=== PATIENT | male | born 1955 | race Caucasian/White ===

== ENCOUNTER 2019-09-25 06:00 | Outpatient (RCR) | payer MEDICARE, MEDICAID, SELFPAY | END 2019-09-29 23:59 | disposition home or self-care (01) | LOC: LAB 06:00 | PROVIDERS: Family Provider Family Medicine; PCP Family Medicine; Visit Provider Physician Assistant | DX: F20.9 Schizophrenia, unspecified (principal); G40.501 Epileptic seizures related to external causes, not intractable, with status epilepticus; I10 Essential (primary) hypertension; E11.9 Type 2 diabetes mellitus without complications; Z98.2 Presence of cerebrospinal fluid drainage device | CPT/HCPCS: 36415 ×4; 80053; 80164; 80185 ×2; 83036; 85025 ==

== ENCOUNTER 2019-10-22 15:00 | Outpatient (RCR) | payer OTHER, SELFPAY ==
[2019-10-22 15:05] LABS: Add Urine Microscopic? NO
[2019-10-22 15:18] LABS: Bilirubin Urine Neg (NEGATIVE); Blood Urine Neg (Negative); Glucose Urine UA Norm (Normal); Ketones Urine Negative (Negative); Leukocyte Esterase Urine Negative (Negative); Nitrate Urine Negative (Negative); Protein Urine Neg (Negative); Urine Appearance Clear (CLEAR); Urine Color Yellow (Yellow); Urobilinogen Urine Norm (Negative); pH Urine 6 (5-7)
== END 2019-10-30 23:59 | disposition home or self-care (01) ==
LOC: LAB 15:00
PROVIDERS: Family Provider Family Medicine; PCP Family Medicine; Visit Provider Family Medicine
DX: Z01.89 Encounter for other specified special examinations (principal)
CPT/HCPCS: 81003; 85025

== ENCOUNTER 2019-10-30 22:39 | Outpatient (CLI) | payer MEDICARE, MEDICAID, SELFPAY ==
[2019-10-30 23:12] LABS: Protein Urine 2+ (Negative); Specific Gravity, Urine 1.015 (1.005-1.030); Urine Appearance Hazy (CLEAR); Urine Color Yellow (Yellow); pH Urine 9 (5-7)
[2019-10-30 23:13] LABS: Add Urine Microscopic? YES; Bilirubin Urine Neg (NEGATIVE); Blood Urine 3+ (Negative); Glucose Urine UA Norm (Normal); Ketones Urine Negative (Negative); Leukocyte Esterase Urine 2+ (Negative); Nitrate Urine Positive (Negative); Sulfosalicylic Acid Urine Positive; Urobilinogen Urine Norm (Negative)
[2019-10-30 23:14] LABS: Add Urine Culture? Yes; Bacteria Urine 3+
== END 2019-10-30 22:40 | disposition home or self-care (01) ==
LOC: LAB 22:47
PROVIDERS: Family Provider Family Medicine; PCP Family Medicine; Visit Provider Physician Assistant
DX: N30.01 Acute cystitis with hematuria (principal)
CPT/HCPCS: 81001; 87077; 87086; 87186

== ENCOUNTER 2020-01-25 12:36 | Inpatient (IN) | payer MEDICARE, MEDICAID, SELFPAY ==
[2020-01-25] VITALS (101 sets, daily range): BP systolic 83–123; BP diastolic 52–70; PULSE 92–122; RESP 18–24; TEMP 37.1–39.4; O2SAT 93–100; BMI 27.1
--- NOTE | 2020-01-25 12:41 | W.ED.AMS ---
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 This morning he seemed to be at his normal baseline and then rapidly deteriorated with the development of fever. Is a history of paranoid schizophrenia cording to old records. All other history from old records and long term notes that were reviewed. Patient remained completely nonresponsive in the emergency room at best I could get him to open up his eyes to loud voices and look in the general direction but he did not answer any questions. MD complaint: altered mental status Review of Systems General: Reports: ROS unobtainable due to mental status PFSH ED PFSH: Social History Smoking and tobacco status: never smoked Alcohol intake: never Marital status: Single Current occupational status: retired History of recent travel: No Physical Exam Const: COMMON NORMALS: no apparent distress HENMT: COMMON NORMALS: normocephalic, head/scalp atraumatic, moist oral mucous membranes and oropharynx normal HEAD & SCALP: normocephalic and atraumatic Eye: COMMON NORMALS: PERRL, EOMs intact bilaterally, conjunctivae normal and no scleral icterus CONJUNCTIVA: Yes conjunctivae normal PUPIL: Yes PERRL Neck/C-Spine: COMMON NORMALS: full ROM, no lymphadenopathy, supple and no JVD Lymph: LYMPHATIC: no lymphadenopathy noted and no lymphedema noted Resp: COMMON NORMALS: normal respiratory effort, no retractions, no use of accessory muscles and clear to auscultation bilaterally AUSCULTATION: clear to auscultation bilaterally Cardio: COMMON NORMALS: no JVD and regular rhythm RATE: tachycardic RHYTHM: regular rhythm HEART SOUNDS: murmur systolic Location: right sternal border Intensity: II/ GI: COMMON NORMALS: soft to palpation and no hepatosplenomegaly AUSCULTATION: Yes normoactive bowel sounds PALPATION: Yes soft, No tender, No guarding and Yes no hepatosplenomegaly Extremity: COMMON NORMALS: normal to inspection, normal capillary refill, no clubbing, cyanosis or edema, no calf tenderness and no pedal edema Skin: COMMON NORMALS: no rashes or lesions noted GENERAL SKIN EXAM: no rashes or lesions noted Course Vital Signs: Vital signs: Vital Signs Temperature 98.8 F 01/25/20 16:42 Pulse Rate 107 H 01/25/20 16:07 Respiratory Rate 22 H 01/25/20 16:07 Blood Pressure 110/70 01/25/20 16:07 Pulse Oximetry 100 01/25/20 16:07 MDM - Altered Mental Status Lab Data: Labs: Lab Results 01/25/20 01/25/20 01/25/20 Range/Units 10:32 12:23 12:23 WBC 14.5 H (4.0-10.0) 10^3/ uL RBC 4.45 (4.1-5.3) 10^6/u L Hgb 12.8 (11.7-16.6) g/dL Hct 40.0 L (42.0-52.0) % MCV 89.9 (80-94) fL MCH 28.8 (28.0-34.0) pg MCHC 32.0 (30.0-36.0) g/dL RDW 17.0 H (12.1-15.1) % Plt Count 167 (130-400) 10^3/c mm MPV 9.1 (7.4-10.4) fL Neut % (Auto) 77.8 % Lymph % (Auto) 6.9 % Glynn % (Auto) 14.6 % Eos % (Auto) 0.0 % Baso % (Auto) 0.2 % Neut # (Auto) 11.3 H (1.8-7.7) 10^3/u L Lymph # (Auto) 1.0 (0.8-4.8) 10^3/u L Glynn # (Auto) 2.1 H (0.2-0.9) 10^3/u L Eos # (Auto) 0.0 (0.0-0.8) 10^3/u L Baso # (Auto) 0.0 (0.0-0.1) 10^3/u L Nucleated RBC % (a uto) 0 % Nucleated RBCs # 0.0 /100WBC Specimen Type Sample Site ABG pH (7.35-7.45) ABG pCO2 (35-45) mmHg ABG pO2 (80.0-100.0) mmH g ABG HCO3 (22-26) mmol/L ABG O2 Saturation ABG Base Excess (-2.0-2.0) mmol/ L Reynaldo Test A-a O2 Gradient (5-10) mmHg Hematocrit (42-52) % Hgb O2 Saturation (95-100) % Carboxyhemoglobin (0.4-20.1) %THgb Methemoglobin (0.4-1.5) % Total Hemoglobin (14-18) g/dL Ionized Calcium (1.1-1.4) mmol/L O2 Delivery Device O2 Liters/Min % FiO2 % Transmission Operator ID Sodium 143 (136-145) mmol/L Potassium 3.5 (3.5-5.1) mmol/L Chloride 102 (98-107) mmol/L Carbon Dioxide 26 (22-29) mmol/L Anion Gap 18.5 (5-19) BUN 22 (8-23) mg/dL Creatinine 1.0 (0.7-1.2) mg/dL GFR Calculation 75.7 L (90-130) mL/min Glucose 186 H (65-115) mg/dL Calculated Osmolal ity 298 H (285-295) mOsm/k g Lactate (0.5-2.2) mmol/L Calcium 9.1 (8.5-10.5) mg/dL Total Bilirubin 0.5 (0.15-1.2) mg/dL AST 118 H (0-40) U/L ALT 76 H (0-41) U/L Alkaline Phosphata se 132 H (40-130) IU/L C-Reactive Protein (0.0-4.9) mg/L Total Protein 8.0 (6.6-8.7) g/dL Albumin 3.7 (3.5-5.2) g/dL Globulin 4.3 (1.3-4.6) g/dL Lipase 25 (13-60) U/L Procalcitonin (0-0.5) ng/mL Urine Color Yellow (Yellow) Urine Appearance Turbid (CLEAR) Urine pH 7 (5-7) Ur Specific Gravit y 1.005 (1.005-1.030) Urine Protein 2+ H (Negative) Urine Glucose (UA) Norm (Normal) Urine Ketones Negative (Negative) Urine Blood 3+ H (Negative) Urine Nitrate Positive H (Negative) Urine Bilirubin Neg (NEGATIVE) Urine Urobilinogen 1 H (Negative) mg/dL Ur Leukocyte Lucrecia ase 2+ H (Negative) Urine RBC 40-50 H (0-2) /hpf Urine WBC >100 H (0-5) /hpf Ur Squamous Epith Cells None (0-5) Urine Bacteria 3+ H (NONE) 01/25/20 01/25/20 01/25/20 Range/Units 12:23 13:04 14:00 WBC (4.0-10.0) 10^3/ uL RBC (4.1-5.3) 10^6/u L Hgb (11.7-16.6) g/dL Hct (42.0-52.0) % MCV (80-94) fL MCH (28.0-34.0) pg MCHC (30.0-36.0) g/dL RDW (12.1-15.1) % Plt Count (130-400) 10^3/c mm MPV (7.4-10.4) fL Neut % (Auto) % Lymph % (Auto) % Glynn % (Auto) % Eos % (Auto) % Baso % (Auto) % Neut # (Auto) (1.8-7.7) 10^3/u L Lymph # (Auto) (0.8-4.8) 10^3/u L Glynn # (Auto) (0.2-0.9) 10^3/u L Eos # (Auto) (0.0-0.8) 10^3/u L Baso # (Auto) (0.0-0.1) 10^3/u L Nucleated RBC % (a uto) % Nucleated RBCs # /100WBC Specimen Type Arterial Sample Site Radial, left ABG pH 7.46 H (7.35-7.45) ABG pCO2 41.6 (35-45) mmHg ABG pO2 162.0 H* (80.0-100.0) mmH g ABG HCO3 29.6 H (22-26) mmol/L ABG O2 Saturation 99.9 ABG Base Excess 5.2 H (-2.0-2.0) mmol/ L Reynaldo Test Pos A-a O2 Gradient 12.3 H (5-10) mmHg Hematocrit 40.8 L (42-52) % Hgb O2 Saturation 98.1 (95-100) % Carboxyhemoglobin 0.9 (0.4-20.1) %THgb Methemoglobin 0.9 (0.4-1.5) % Total Hemoglobin 13.3 L (14-18) g/dL Ionized Calcium 1.1 (1.1-1.4) mmol/L O2 Delivery Device Nc O2 Liters/Min 3.0 % FiO2 32.0 % Transmission Operator ID glc Sodium 144.0 H (136-145) mmol/L Potassium 2.9 L (3.5-5.1) mmol/L Chloride (98-107) mmol/L Carbon Dioxide (22-29) mmol/L Anion Gap (5-19) BUN (8-23) mg/dL Creatinine (0.7-1.2) mg/dL GFR Calculation (90-130) mL/min Glucose 150.0 H (65-115) mg/dL Calculated Osmolal ity (285-295) mOsm/k g Lactate 2.1 (0.5-2.2) mmol/L Calcium (8.5-10.5) mg/dL Total Bilirubin (0.15-1.2) mg/dL AST (0-40) U/L ALT (0-41) U/L Alkaline Phosphata se (40-130) IU/L C-Reactive Protein 262.5 H (0.0-4.9) mg/L Total Protein (6.6-8.7) g/dL Albumin (3.5-5.2) g/dL Globulin (1.3-4.6) g/dL Lipase (13-60) U/L Procalcitonin 0.33 (0-0.5) ng/mL Urine Color (Yellow) Urine Appearance (CLEAR) Urine pH (5-7) Ur Specific Gravit y (1.005-1.030) Urine Protein (Negative) Urine Glucose (UA) (Normal) Urine Ketones (Negative) Urine Blood (Negative) Urine Nitrate (Negative) Urine Bilirubin (NEGATIVE) Urine Urobilinogen (Negative) mg/dL Ur Leukocyte Lucrecia ase (Negative) Urine RBC (0-2) /hpf Urine WBC (0-5) /hpf Ur Squamous Epith Cells (0-5) Urine Bacteria (NONE) Discharge Plan Discharge Patient Disposition: Admitted As Inpatient Admit Provider: Min Chauhan Clinical Impression: Sepsis, Altered mental status, Pyelonephritis, LINOLEUM PRINTER (ventriculoperitoneal) shunt status, Epilepsy, UTI (urinary tract infection) Condition: Stable Interventions: ED Discharge Assessment Last Done: 01/25/20 16:07 Discharge Date/Time: 01/25/20 16:44 Coding Level of Care Code ED Senior Interactive Producer for Lizette Graham
--- NOTE | 2020-01-25 12:48 | CT_ITS ---
WS: [id number] CT ABDOMEN AND PELVIS WITH CONTRAST HISTORY: Abdominal pain. Fever. TECHNIQUE: Imaging performed of the abdomen and pelvis with IV contrast. Single phase imaging of the abdomen. Coronal and sagittal reformats are submitted. All CT scans at [facility] use at least one of these dose optimization techniques: automated exposure control; mA and/or kV adjustment per patient size (includes targeted exams where dose is matched to clinical indication); or iterativ e reconstruction. IV CONTRAST: Omnipaque 300; 95 mL IV. Oral contrast: No DLP: 896.73 mGy.cm COMPARISON: None available. Lower thorax: Atelectatic changes at the RIGHT lung base. Slightly elevated RIGHT diaphragm has been previously described. Heart is being displaced to the LEFT of midline by the elevated diaphragm and h erniating abdominal structures extending into the RIGHT lower thorax. No hiatal hernia. Liver/biliary system: Hepatic granulomata. No bile duct dilatation or mass. Gallbladder: Normal. No gallstones or wall thickening. No pericholecystic fluid. Pancreas: Normal. Spleen: Normal size spleen with granulomata. Adrenal glands: Normal. Right kidney: Marked perinephric stranding around the RIGHT kidney. Kidney is normally enhancing. The re is a prominent extrarenal pelvis with enhancement of the uroepithelium. The RIGHT ureter although not significantly dilated is slightly dilated with enhancement. Left kidney: Significant perinephric stranding around the LEFT kidney. Mildly dilated LEFT renal pelv is versus extrarenal pelvis with enhancement. The LEFT ureter is dilated with ureteral enhancement. Aorta: Mild atherosclerosis. BUSINESS ANALYTICS ANALYST shunt catheter enters the peritoneal cavity on the RIGHT. Lymphadenopathy: None. Free fluid: None. GI tract: Marked fecal retention. Increased air in the transverse colon. No free air is identified. Abdominal wall: Small umbilical hernia. Pelvis: Urinary bladder is not distended. There is marked thickening of the urinary bladder wall. Fol ey catheter is in place. There is air in the urinary bladder from the Ness catheter placement. Bones: No osteoblastic or osteolytic bone disease. CT/CT abdomen pelvis w con* [id number] IMPRESSION: 1. Marked bilateral perinephric stranding with small extrarenal pelvis versus minimally dilated renal pelves. There is enhancement of the uroepithelium of th e renal pelves and the ureters with mild ureteral dilatation, LEFT greater than RIGHT. Suspect pyelonephritis with involvement of the ureters. 2. Ness catheter has been placed with diffusely thickened urinary bladder wal l which may be related to cystitis or chronic infection. 3. Chronic elevation of the RIGHT hemidiaphragm. 4. Increased air within the GI tract. May be due to mild ileus and/or constipa tion.
--- NOTE | 2020-01-25 12:48 | ECG_ITS ---
Measurements Intervals [place] Rate: 122 P: 36 WI: 129 QRS: 49 QRSD: 81 T: 64 QT: 337 QTc: 482 SINUS TACHYCARDIA LOW QRS VOLTAGE IN EXTREMITY LEADS [QRS DEFLECTION < 0.5 mV IN LIMB LEADS] ST DEVIATION AND MODERATE T-WAVE ABNORMALITY, CONSIDER ANTEROLATERAL ISCHEMIA [-0.1+ mV T WAVE IN V3-V6] Compared to ECG 08/21/2019 08:29:10 Possible ischemia now present Sinus rhythm no longer present T-wave abnormality still present Electronically Signed On 01-25-2020 15:56:42 CDT by Sohan Reed M.D. [email or web address]
[2020-01-25 12:56] LABS: Basophils % 0.2 %; Hemoglobin 12.8 g/dL (11.7-16.6); Lymphocytes % 6.9 %; Mean Corpuscular Hemoglobin 28.8 pg (28.0-34.0); Mean Corpuscular Volume 89.9 fL (80-94); Mean Platelet Volume 9.1 fL (7.4-10.4); Monocytes # 2.1 10^3/uL (0.2-0.9); Monocytes % 14.6 %; Neutrophils # 11.3 10^3/uL (1.8-7.7); Neutrophils % 77.8 %; Nucleated Red Blood Cells % 0 %; Platelet Count 167 10^3/cmm (130-400); Red Blood Count 4.45 10^6/uL (4.1-5.3); White Blood Count 14.5 10^3/uL (4.0-10.0)
[2020-01-25] MEDS: sodium chloride 0.9% 1,000 ML 999 ML IV (13:04)
[2020-01-25] MEDS: cefTRIAXone 1,000 MG in sodium chloride 0.9% (plus) 50 ML 100 MG IV (13:04)
[2020-01-25 13:11] LABS: Alanine Aminotransferase 76 U/L (0-41); Albumin Level 3.7 g/dL (3.5-5.2); Alkaline Phosphatase 132 IU/L (40-130); Anion Gap 18.5 (5-19); Aspartate Amino Transferase 118 U/L (0-40); Blood Urea Nitrogen 22 mg/dL (8-23); Calcium 9.1 mg/dL (8.5-10.5); Carbon Dioxide 26 mmol/L (22-29); Chloride 102 mmol/L (98-107); Globulin 4.3 g/dL (1.3-4.6); Glomerular Filtration Rate 75.7 mL/min (90-130); Glucose 186 mg/dL (65-115); Lipase 25 U/L (13-60); Osmolality Calculated 298 mOsm/kg (285-295); Potassium 3.5 mmol/L (3.5-5.1); Sodium 143 mmol/L (136-145); Total Bilirubin 0.5 mg/dL (0.15-1.2)
[2020-01-25] MEDS: iohexol 300 mg/mL 100 mL Btl IV (13:45)
[2020-01-25 14:08] LABS: Glucose Urine UA Norm (Normal); Ketones Urine Negative (Negative); Protein Urine 2+ (Negative); Specific Gravity, Urine 1.005 (1.005-1.030); Urine Appearance Turbid (CLEAR); Urine Color Yellow (Yellow); pH Urine 7 (5-7)
[2020-01-25 14:09] LABS: Add Urine Microscopic? YES; Bilirubin Urine Neg (NEGATIVE); Blood Urine 3+ (Negative); Leukocyte Esterase Urine 2+ (Negative); Nitrate Urine Positive (Negative); Urobilinogen Urine 1 mg/dL (Negative)
[2020-01-25 14:10] LABS: ABG PCO2 41.6 mmHg (35-45); ABG PH Result 7.46 (7.35-7.45); Alveolar-Arterial Oxygen Gradi 12.3 mmHg (5-10); Arterial Blood Gas Hematocrit 40.8 % (42-52); Base Excess ABG 5.2 mmol/L (-2.0-2.0); Blood Gas Allen Test Pos; Blood Gas Operator Identificat glc; Blood Gas Sample Site Radial, left; Blood Gas Sample Type Arterial; Carboxyhemoglobin 0.9 %THgb (0.4-20.1); HCO3 ABG 29.6 mmol/L (22-26); HGB O2 Sat 98.1 % (95-100); Ionized Calcium Level - ABG 1.1 mmol/L (1.1-1.4); Methemoglobin 0.9 % (0.4-1.5); Oxygen Device NC; Oxygen Saturation ABG 99.9; Potassium Level - ABG 2.9 mmol/L (3.5-5.0); Total Hemoglobin 13.3 g/dL (14-18)
[2020-01-25 14:18] LABS: Add Urine Culture? Yes; Bacteria Urine 3+; RBC Urine 40-50 /hpf (0-2); WBC Urine >100 /hpf (0-5)
[2020-01-25 14:48] LABS: Lactate (Lactic Acid level) 2.1 mmol/L (0.5-2.2)
[2020-01-25] MEDS: acetaminophen 650 mg Supp PR (14:54)
--- NOTE | 2020-01-25 15:04 | PC.NURSE ---
Upon giving rectal Tylenol, pt was noted to have a macerated buttock with several wounds. Pt scrotum macerated and peeling as well.
--- NOTE | 2020-01-25 15:42 | P.HP_ITS ---
Providers/Chief Complaint Primary Care Provider: Lucian Torres MD Chief Complaint: AMS History of Present Illness Sammy Anderson is a 64 year old male with a past medical history of epilepsy, hyperlipidemia, chronic urinary retention with chronic Ness, schizophrenia, has a history of GAS TRANSFER OPERATOR shunt, who has baseline confusion, can carry a conversation, is a two-person assist, requires help with activities of daily living, awarded guardianship of the state, DNR, who presents to the emergency room for evaluation of altered mental status. Currently patient only opens his eyes, does track, but does not respond to questioning, does not follow commands, most of the history was obtained from [facility]. According to nurses at [facility], patient is at baseline confused, but can carry out some conversations, is a 2 person assist, was his usual self, has a chronic Ness, recently was having issues with his catheter not putting out urine output, saw urology, catheter was flushed, seems to be working properly. According to nursing staff, this morning, patient had fever of 100.9, was more confused than usual, not responding appropriately, lethargic, he had greenish output from his Ness catheter bag. Patient has a history of urinary tract infections, last urinary tract infection was in September, he had Proteus in his urine cultures. Treated with outpatient antibiotics. According to senior living he had a hospital admission about a year ago for acute respiratory failure. No hospitalization for UTI, sepsis, pyelonephritis, septic shock. No recent falls, no recent injuries, no cough, no shortness of breath, no known exposure to COVID-19. Review of Systems General: Reports: ROS unobtainable due to medical condition Medications/Allergies Home Medications Medication Instructions Recorded Confirmed Last Taken Type atorvastatin 40 mg tablet 40 mg PO DAILY 01/13/20 01/25/20 Unknown History ferrous sulfate 325 mg (65 mg 325 mg PO DAILY 01/13/20 01/25/20 Unknown History iron) tablet furosemide 80 mg tablet 80 mg PO DAILY 01/13/20 01/25/20 Unknown History omeprazole 20 mg capsule,delayed 20 mg PO DAILY 01/13/20 01/25/20 Unknown History release phenytoin sodium extended 100 mg 100 mg PO TID cap 01/13/20 01/25/20 Unknown History capsule valproic acid (as sodium salt) 250 250 mg PO BID 01/13/20 01/25/20 Unknown History mg/5 mL oral solution acetaminophen 325 mg PO Q4H PRN 01/25/20 01/25/20 Unknown History albuterol sulfate 2.5 mg INHALATION TID PRN 01/25/20 01/25/20 Unknown History bisacodyl 10 mg CA DAILY PRN 01/25/20 01/25/20 Unknown History magnesium hydroxide [Milk of 400 mg PO DAILY PRN 01/25/20 01/25/20 Unknown History Magnesia] nut.tx,spec.frm,l-fr,iron-fos 90 ea PO TID 01/25/20 01/25/20 Unknown History [TwoCal HN] polyethylene glycol 3350 [Miralax] 17 g PO DAILY PRN 01/25/20 01/25/20 Unknown History potassium chloride 20 meq PO DAILY 01/25/20 01/25/20 Unknown History sennosides-docusate sodium 1 tab-cap PO BID PRN 01/25/20 01/25/20 Unknown History [Senna-S] sodium phosphates [Enema] 118 ml CA DAILY PRN 01/25/20 01/25/20 Unknown History tamsulosin [Flomax] 0.4 mg PO DAILY 01/25/20 01/25/20 Unknown History Allergies Allergy/AdvReac Type Severity Reaction Status Date / Time No Known Allergies Allergy Unverified 01/25/20 12:42 PFSH Acute PFSH: Medical History (Updated 01/25/20 @ 15:49 by Min Chauhan MD) Urinary retention Social History Smoking and tobacco status: never smoked Alcohol intake: never Marital status: Single Current occupational status: retired History of recent travel: No Vitals/I&O/Wt Last Vital Signs Temp 99.6 F 01/25/20 14:33 Pulse 109 H 01/25/20 15:22 Resp 22 H 01/25/20 15:22 BP 107/60 01/25/20 15:22 Pulse Ox 100 01/25/20 15:22 01/25/20 01/25/20 01/25/20 06:59 14:59 22:59 Intake Total 1050 / 1050 Balance 1050 / 1050 Weight last 48 hrs Weight 90.718 kg Physical Exam Const: COMMON NORMALS: no apparent distress NUTRITIONAL APPEARANCE: obese ORIENTATION/CONSCIOUSNESS: Yes confused and Yes lethargic; not oriented to person, not oriented to place and not oriented to time HENMT: COMMON NORMALS: normocephalic HEAD & SCALP: normocephalic Eye: COMMON NORMALS: PERRL GENERAL EYE: normal appearance of both eyes PUPIL: Yes PERRL DIRECT OPHTHALMOSCOPY: Yes no papilledema Neck/C-Spine: COMMON NORMALS: full ROM, no lymphadenopathy, no JVD and thyroid normal THYROID: thyroid normal Lymph: LYMPHATIC: no lymphadenopathy noted Chest: COMMONS NORMALS: inspection of chest normal Resp: COMMON NORMALS: normal respiratory effort, no retractions, no use of accessory muscles and clear to auscultation bilaterally AUSCULTATION: clear to auscultation bilaterally Cardio: COMMON NORMALS: no JVD, regular rate, regular rhythm, S1 normal heart sound, S2 normal heart sound, no gallops, no clicks and no murmurs RATE: tachycardic RHYTHM: regular rhythm HEART SOUNDS: S1 normal and S2 normal GI: COMMON NORMALS: normal to inspection, nondistended, normoactive bowel sounds, soft to palpation, non-tender and no hepatosplenomegaly PALPATION: Yes soft and Yes no hepatosplenomegaly Extremity: COMMON NORMALS: normal to inspection, full ROM and no pedal edema Neuro: COMMON NORMALS: negative for oriented x3, negative for CN's II-XII intact bilaterally and negative for moves all extremities OTHER: Does not follow neurologic testing due to altered mental status Urinary Catheter Management^: Ness: Cath Placed During This Visit: yes Urinary Catheter Date of Insertion: 01/25/20 Urinary Catheter Time of Insertion: 13:57 Sepsis: Is patient septic: Yes Focused sepsis exam performed: Yes Date exam was performed: 01/25/20 Time exam was performed: 15:51 Data : 01/25/20 12:23 01/25/20 12:23 Micro: Microbiology 01/25/20 13:04 Blood Culture - Preliminary Blood SPECIMEN COLLECTED 01/25/20 12:58 Blood Culture - Preliminary Blood SPECIMEN COLLECTED A&P Assessment and plan (1) Altered mental status: -Altered mental status secondary to bilateral pyelonephritis, urethritis, UTI, with sepsis -Sepsis criteria met, altered mental status, heart rates in the 120s, T-max 103, cell count 14.5, lactic acid 2.1, UA positive for UTI -CT of the abdomen and pelvis shows Marked bilateral perinephric stranding with small extrarenal pelvis versus minimally dilated renal pelves. There is enhancement of the uroepithelium of the renal pelves and the ureters with mild ureteral dilatation, LEFT greater than RIGHT. Suspect pyelonephritis with involvement of the ureters. Plan: -I believe patient septic, needs to go to the ICU -Broad-spectrum antibiotics Zosyn -IV hydration -LR boluses as needed to maintain map greater than 65 -So far patient has been normotensive, no pressors required -Follow urine cultures, follow blood cultures -N.p.o., neurochecks, aspiration precautions Status: Acute (2) UTI (urinary tract infection): Status: Acute (3) Sepsis: Status: Acute (4) Pyelonephritis: Status: Acute (5) Epilepsy: Continue home medications Status: Acute (6) GAS TRANSFER OPERATOR (ventriculoperitoneal) shunt status: Status: Acute Additional A&P Information Patient is a DNR, Is awarded guardianship of the [facility], [place] public special education administrator #[id number] Attestations Medical Necessity Statement*: Patient requires hospitalization, inpatient, ICU greater than 2 midnights for sepsis secondary to pyelonephritis Coding Level of Care Code Acute Pastry Cook Helper for [facility] Fwd Diagnoses Altered mental status R41.82 UTI (urinary tract infection) N39.0 Sepsis A41.9 Pyelonephritis N12 Epilepsy G40.909 GAS TRANSFER OPERATOR (ventriculoperitoneal) shunt status Z98.2 Sepsis Evaluation Sepsis screening result: No Definite Risk Current stage of sepsis: sepsis Possible source: genitourinary Focused Exam Vital Signs Temp Pulse Resp BP Pulse Ox 01/25/20 15:22 109 H 22 H 107/60 100 01/25/20 14:58 112 H 22 H 104/66 100 01/25/20 14:33 99.6 F 111 H 24 H 103/62 100 01/25/20 14:16 112 H 24 H 102/63 100 01/25/20 12:40 103.0 F H 122 H 24 H 123/68 96 Cardiovascular exam: Present tachycardia Capillary refill: < 3 Seconds Peripheral pulse strength: 2+ Slightly Diminished Peripheral pulse location: Pedal Date exam was performed: 01/25/20 Time exam was performed: 15:52
[2020-01-25 15:52] LABS: Procalcitonin 0.33 ng/mL (0-0.5)
[2020-01-25 16:02] LABS: C Reactive Protein 262.5 mg/L (0.0-4.9)
--- NOTE | 2020-01-25 16:43 | PC.NURSE ---
Prior to transfer to ICU, pt provided flavio-care, clean sheets and gown, and oral care. Pt temp 98.8 oral prior to transfer. ICU nurse updated at bedside.
--- NOTE | 2020-01-25 16:44 | XR_ITS ---
WS: [id number] PORTABLE CHEST HISTORY: sob COMPARISON: 08/21/2019 Marked elevation of the RIGHT hemidiaphragm is similar to the prior study. The GI tract, hepatic flex ure, extends into the RIGHT thorax. No pneumonia. Normal vasculature. No pleural effusion or pneumothorax. Cardiac size: Normal. Mediastinum/Aorta: Normal mediastinum. No osseous abnormality seen. CITY PLANNING AIDE shunt catheter projects over the RIGHT thorax. XR/XR chest 1V portable [id number] IMPRESSION: Stable chronic elevation of the RIGHT hemidiaphragm. Portion of the GI tract ex tends into the RIGHT lower thorax due to the elevated diaphragm.
[2020-01-25] MEDS: dextrose 5%-sod chloride 0.9% 1,000 ML 100 ML IV (16:54)
[2020-01-25] MEDS: piperacillin-tazobactam 3.375 GM in sodium chloride 0.9% (plus) 50 ML IV (16:54)
[2020-01-25] MEDS: enoxaparin 40 mg/0.4 mL Syringe SUBCUT (16:54)
[2020-01-25 18:03] LABS: Thyroid Stimulating Hormone 1.04 uIU/mL (0.27-4.20)
--- NOTE | 2020-01-25 19:38 | PC.NURSE ---
Change in medication route Patient has previous order for Dilantin 100mg PO per admitting physician. patient wakes to painful stimuli but does not communicate with nurse. patient diet is currently NPO. Spoke with and informed him of medication order. Verbal order from to change Dilantin to IV administration. Spoke with Al from pharmacy to change order in system.
--- NOTE | 2020-01-25 20:48 | PC.NURSE ---
Called [facility] and spoke with patients nurse, KELLY Barnett. Per Anibal, patient usually wanders the helms in his wheelchair and is able to communicate with staff. Patient is a 2 person assist and needs help with feedings.
[2020-01-25 21:01] LABS: Glucose Point of Care 191 mg/dL (70-110)
--- NOTE | 2020-01-25 21:11 | CTR_ITS ---
PROCEDURE INFORMATION: Exam: CT Head Without Contrast Exam date and time: 01/25/2020 9:20 PM Age: 64 years old Clinical indication: Weakness, facial; Prior surgery; Additional info: Facial drop TECHNIQUE: Imaging protocol: Computed tomography of the head without contrast. Total DLP: 666.07 mGy-cm Radiation optimization: All CT scans at this facility use at least one of these dose optimization techniques: automated exposure control; mA and/or kV adjustment per patient size (includes targeted exams where dose is matched to clinical indication); or iterative reconstruction. Other technique: STROKE PROTOCOL was implemented. COMPARISON: 1. CT head wo con* [id number] 08/21/2019 11:[address] head wo con* [id number] 06/29/2015 2:05:33 PM FINDINGS: Tubes, catheters and devices: COLOR SHOP HELPER shunt catheters in place from a right frontal bone with tip in the left lateral ventricle and old COLOR SHOP HELPER shunt catheter on the left remains in place with its tip in the right frontal horn. These are not changed from the previous examinations. Brain: There is moderate cortical atrophy. There are focal areas of encephalomalacia in the right cerebellar hemisphere, right occipital lobe tip, and medial aspect of the left posterior parietal lobe in keeping with old infarcts not significantly changed. Ventricles: Normal. No ventriculomegaly. Bones/joints: There is old right posterior parietal and occipital craniotomy not significantly changed. Sinuses: Visualized sinuses are unremarkable. No fluid levels. Mastoid air cells: Visualized mastoid air cells are well aerated. Soft tissues: Unremarkable. Other findings: Findings are not significantly changed from prior examinations. CT/CT head wo con* [id number] IMPRESSION: Old postsurgical changes. No acute intracranial finding. ASSESSMENT: ASPECTS ([place] Stroke Program Early CT Score) is 10. Radiation Dose CTDIVOL = (mGy): DLP = 666.07 (mGy-cm)
--- NOTE | 2020-01-25 21:24 | CTR_ITS ---
PROCEDURE INFORMATION: Exam: CT Angiography Head With Contrast Exam date and time: 01/25/2020 9:27 PM Age: 64 years old Clinical indication: Numbness; Prior surgery; Additional info: Once CT head rules out ich TECHNIQUE: Imaging protocol: Computed tomography angiography of the head with intravenous contrast. 3D rendering: MIP and/or 3D reconstructed images were created by the technologist. Total DLP: 2260.74 mGy-cm Radiation optimization: All CT scans at this facility use at least one of these dose optimization techniques: automated exposure control; mA and/or kV adjustment per patient size (includes targeted exams where dose is matched to clinical indication); or iterative reconstruction. Contrast material: OMNI 350; Contrast volume: 95 ml; Contrast route: IV; COMPARISON: CT head wo con* [id number] 01/25/2020 9:28 PM FINDINGS: Right internal carotid artery: Intracranial segment is patent with no significant stenosis or occlusion. No aneurysm. Right anterior cerebral artery: No occlusion or significant stenosis. No aneurysm. Right middle cerebral artery: No occlusion or significant stenosis. No aneurysm. Right posterior cerebral artery: No occlusion or significant stenosis. No aneurysm. Right vertebral artery: There is occlusion or very minimal flow in the distal V4 segment of the right vertebral artery. Right posterior inferior cerebellar artery: The right PICA is not identified on this examination. As this patient has old right cerebellar infarct, the age of these findings is uncertain. Left internal carotid artery: Intracranial segment is patent with no significant stenosis or occlusion. No aneurysm. Left anterior cerebral artery: No occlusion or significant stenosis. No aneurysm. Left middle cerebral artery: No occlusion or significant stenosis. No aneurysm. Left posterior cerebral artery: The left P1 segment is very small and stenotic and the P2 segment is not opacified representing severe stenosis or occlusion of uncertain age. Correlation clinical history is suggested. Left vertebral artery: No occlusion or significant stenosis. No aneurysm. Basilar artery: No occlusion or significant stenosis. No aneurysm. IMPRESSION: 1. 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 Right PICA is not visualized and is likely occluded of uncertain age 3. Occlusion of left posterior cerebral artery of uncertain age. PROCEDURE INFORMATION: Exam: CT Angiography Neck With Contrast Exam date and time: 01/25/2020 9:27 PM Age: 64 years old Clinical indication: Numbness; Prior surgery; Additional info: Once CT head rules out ich TECHNIQUE: Imaging protocol: Computed tomography angiography of the neck with intravenous contrast. 3D rendering: MIP and/or 3D reconstructed images were created by the technologist. Total DLP: 2260.74 mGy-cm Radiation optimization: All CT scans at this facility use at least one of these dose optimization techniques: automated exposure control; mA and/or kV adjustment per patient size (includes targeted exams where dose is matched to clinical indication); or iterative reconstruction. Contrast material: OMNI 350; Contrast volume: 95 ml; Contrast route: IV; COMPARISON: CT head wo con* [id number] 01/25/2020 9:28 PM FINDINGS: Right common carotid artery: No stenosis. No dissection or occlusion. Right internal carotid artery: There is there is some focal plaque in the proximal right internal carotid artery with stenosis is measures approximately 40% according to the NASCET criteria. Right external carotid artery: No occlusion or stenosis of the origin. Right vertebral artery: Right vertebral artery is very small throughout its length. Left common carotid artery: No stenosis. No dissection or occlusion. Left internal carotid artery: There is mild calcified plaque in the left carotid bulb and proximal left internal carotid artery but with 0% stenosis according to the NASCET criteria. Left external carotid artery: No occlusion or stenosis of the origin. Left vertebral artery: Left vertebral artery is dominant. Bones/joints: No acute fracture. Soft tissues: Normal. No significant soft tissue swelling. Lungs: There is some scarring or atelectasis in the right upper lobe. CT/CT angio headneck* [id number] IMPRESSION: Mild stenosis in the proximal right internal carotid artery approximately 40%. REFERENCES: NASCET CRITERIA. The degree of internal carotid artery stenosis is based on NASCET criteria. Normal is no stenosis. Mild is less than 50% stenosis. Moderate is 50-69% stenosis. Severe is 70% to 99% stenosis. Total occlusion is no detectable patent lumen. Radiation Dose CTDIVOL = (mGy): DLP = 2260.74~2260.74 (mGy-cm)
--- NOTE | 2020-01-25 21:48 | PM.EVENT ---
Event Note Event Note: Stroke alert was called I was notified by the nurse that night nurse on her evaluation found facial droop. I evaluated the patient on stat basis. As per my conversation with the nurse, she called care home to get the report and know more about the patient. Patient at baseline is a two-person assist, able to continue a conversation, they have not noticed any facial droop or right-sided weakness at the facility. Right-sided hemiparesis with no movement against gravity able to wiggle his fingers and toes Loss of strength of right lower extremity Patient is able to follow commands blink his eyes on verbal command He is not able to articulate, mute at this point Not able to test his visual field and sensations Reflexes equivocal On my evaluation NIH 13 Code stroke was called, report was given to Dr. Morfin I ordered CT head to rule out intracranial hemorrhage and CT head once intracranial hemorrhage has been ruled out. We will follow-up with the results, as per my discussion with Dr. Mrofin he will not be a candidate for any intervention because of the timeline and poor functional status.
[2020-01-25] MEDS: iohexol 350 mg/mL 100 mL Btl IV (21:51)
--- NOTE | 2020-01-25 22:12 | PC.NURSE ---
Stroke alert called 2104 upon entering room nurse noted patients facial droop to be slightly worse. Pulled CLAIRE Crump into room and NIH was done by nurses. called for stat examination. NIH scale per was 13. loss of strength to his right lower extremity and no movement against gravity to his right upper extremity. patient is able to wiggle fingers. 2123 Stroke alert called [address] via stretcher with [address] head and CTA head and neck done. Dr. Leiva spoke with . Per Navjot that no interventions should be done due to the unknown time frame of this event and the poor functional status of patient.
[2020-01-26] VITALS (145 sets, daily range): BP systolic 81–108; BP diastolic 49–67; PULSE 79–105; RESP 18; TEMP 36.9–37.3; O2SAT 83–100
[2020-01-26] MEDS: piperacillin-tazobactam 3.375 GM in sodium chloride 0.9% (plus) 50 ML IV ×3 (00:37→16:51)
[2020-01-26] MEDS: dextrose 5%-sod chloride 0.9% 1,000 ML 100 ML IV (02:56)
[2020-01-26 05:45] LABS: Basophils % 0.2 %; Eosinophils % 0.2 %; Hematocrit 34.6 % (42.0-52.0); Hemoglobin 10.8 g/dL (11.7-16.6); Lymphocytes # 1.4 10^3/uL (0.8-4.8); Lymphocytes % 11.1 %; Mean Corpuscular HGB Conc 31.2 g/dL (30.0-36.0); Mean Corpuscular Hemoglobin 28.8 pg (28.0-34.0); Mean Corpuscular Volume 92.3 fL (80-94); Mean Platelet Volume 8.5 fL (7.4-10.4); Monocytes # 1.7 10^3/uL (0.2-0.9); Monocytes % 13.4 %; Neutrophils # 9.5 10^3/uL (1.8-7.7); Neutrophils % 74.8 %; Nucleated Red Blood Cells % 0 %; Platelet Count 130 10^3/cmm (130-400); Red Blood Count 3.75 10^6/uL (4.1-5.3); Red Cell Distribution Width 17.2 % (12.1-15.1); White Blood Count 12.7 10^3/uL (4.0-10.0)
[2020-01-26 05:55] LABS: INR 1.22 (0.8-1.2)
[2020-01-26 05:59] LABS: Alanine Aminotransferase 59 U/L (0-41); Albumin Level 3.1 g/dL (3.5-5.2); Alkaline Phosphatase 106 IU/L (40-130); Anion Gap 13.2 (5-19); Aspartate Amino Transferase 51 U/L (0-40); Blood Urea Nitrogen 22 mg/dL (8-23); Calcium 8.8 mg/dL (8.5-10.5); Carbon Dioxide 31 mmol/L (22-29); Chloride 107 mmol/L (98-107); Globulin 3.9 g/dL (1.3-4.6); Glomerular Filtration Rate 75.7 mL/min (90-130); Glucose 220 mg/dL (65-115); Magnesium 2.1 mg/dL (1.7-2.3); Osmolality Calculated 309 mOsm/kg (285-295); Phosphorus 3.8 mg/dL (2.5-4.5); Potassium 3.2 mmol/L (3.5-5.1); Sodium 148 mmol/L (136-145); Total Bilirubin 0.3 mg/dL (0.15-1.2)
[2020-01-26 06:01] LABS: Estmated Average Glucose 131; Hemoglobin A1C 6.2 % (4.0-6.0)
[2020-01-26 07:10] LABS: Glucose Point of Care 134 mg/dL (70-110)
[2020-01-26] MEDS: pantoprazole 40 mg SDV IVP (09:01)
[2020-01-26] MEDS: clopidogrel 75 mg Tablet PO (09:01)
[2020-01-26] MEDS: aspirin 325 mg Tablet PO (09:02)
--- NOTE | 2020-01-26 09:58 | P.PN_ITS ---
Subjective Subjective: Interval history: He is hard of hearing but after understanding the question says he is not in pain. Knows he is in the hospital. Does not remember the year. He is not sure why he is in the hospital. He understands that he has a urinary tract infection. Understands that may have had CVA last night. He says he knows that he has had a stroke in the past. Vitals/I&O/Wt Last Vital Signs Temp 98.4 F 01/26/20 04:05 Pulse 93 01/26/20 08:00 Resp 18 01/26/20 08:00 BP 102/60 01/26/20 08:00 Pulse Ox 95 01/26/20 08:00 01/25/20 01/26/20 01/26/20 22:59 06:59 14:59 Intake Total 102 / 1152 1050 / 2202 Output Total 2024 525 / 2550 Balance -1923 / -873 525 / -348 Weight last 48 hrs Weight 90.718 kg Physical Exam Const: COMMON NORMALS: no apparent distress GENERAL APPEARANCE: frail appearing NUTRITIONAL APPEARANCE: overweight OTHER: Asleep, but wakes up easily. Hard of hearing, but answers questions. Follows commands. HENMT: COMMON NORMALS: oropharynx normal Neck/C-Spine: COMMON NORMALS: no JVD Resp: COMMON NORMALS: normal respiratory effort and clear to auscultation bilaterally AUSCULTATION: clear to auscultation bilaterally Cardio: COMMON NORMALS: no JVD, regular rhythm, S1 normal heart sound, S2 normal heart sound and no murmurs RHYTHM: regular rhythm HEART SOUNDS: S1 normal and S2 normal GI: COMMON NORMALS: normal to inspection, nondistended, normoactive bowel sounds, soft to palpation and non-tender PALPATION: Yes soft Extremity: COMMON NORMALS: no joint enlargement and no pedal edema Neuro: OTHER: Noted ataxia and dysmetria. No facial droop. Right side weakness upper and lower. Is able to lift his arm off the bed but with significant effort. Cannot move right lower extremity across the surface of the bed. Skin: COMMON NORMALS: no rashes or lesions noted GENERAL SKIN EXAM: no rashes or lesions noted Urinary Catheter Management^: Ness: Cath Placed During This Visit: yes Urinary Catheter Date of Insertion: 01/25/20 Urinary Catheter Time of Insertion: 13:57 Data : 01/26/20 05:35 01/26/20 05:35 Micro: Microbiology 01/25/20 13:04 Blood Culture - Preliminary Blood SPECIMEN COLLECTED 01/25/20 12:58 Blood Culture - Preliminary Blood SPECIMEN COLLECTED A&P Assessment and plan (1) Altered mental status: Concern for possible acute to subacute CVA last night. Stroke team was consulted. Was not found to be candidate for intervention. Started on dual antiplatelet therapy. Will change aspirin to 325 mg. Continue Plavix. Continue statin. Monitor on telemetry. On bedside swallow evaluation did well. Will start clear liquid diet for now. Speech therapy assessment. PT, OT if BP improves. CT with severe atherosclerotic disease and occlusion of distal right vertebral artery, right and right PICA appears to be occluded. Occlusion of left MAID CLEANING COOKING. 40% stenosis right internal carotid artery. Past cerebellar CVA. Follow-up in office with neurology. Status: Acute (2) UTI (urinary tract infection): Complicated urinary tract infection, with history of recurrent infections, with recent history of bilateral hydronephrosis, moderate in the right, left. Was seen by urology in office. Started on tamsulosin. From CT abdomen pelvis with marked bilateral perinephric stranding. Mild ureteral dilation. From what I understand this may be better compared to previo us, with urology office report stating moderate right side dilation, mild left side. Maintain Ness in place. Continues on Flomax, although at this time will hold due to soft blood pressures. Status: Acute (3) Sepsis: Maintain mean arterial pressure. Continue antibiotic at this time with Zosyn. Follow-up urine culture. Status: Acute (4) Pyelonephritis: As above. 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
[2020-01-26 11:19] LABS: Glucose Point of Care 119 mg/dL (70-110)
[2020-01-26] MEDS: dextrose 5% 1,000 ML 30 ML IV (14:44)
[2020-01-26] MEDS: enoxaparin 40 mg/0.4 mL Syringe SUBCUT (16:51)
[2020-01-26 17:27] LABS: Glucose Point of Care 130 mg/dL (70-110)
[2020-01-26 21:18] LABS: Glucose Point of Care 111 mg/dL (70-110)
[2020-01-26] MEDS: phenytoin ER 100 mg Capsule PO (21:40)
[2020-01-26] MEDS: atorvastatin 40 mg Tablet 80 MG PO (21:40)
[2020-01-27] VITALS (82 sets, daily range): BP systolic 81–125; BP diastolic 51–78; PULSE 83–99; RESP 14–20; TEMP 36.6–37.1; O2SAT 95–100
[2020-01-27] MEDS: piperacillin-tazobactam 3.375 GM in sodium chloride 0.9% (plus) 50 ML IV ×3 (01:26→16:09)
[2020-01-27 05:25] LABS: Basophils % 0.3 %; Eosinophils # 0.2 10^3/uL (0.0-0.8); Eosinophils % 2.5 %; Hematocrit 31.9 % (42.0-52.0); Hemoglobin 9.9 g/dL (11.7-16.6); Lymphocytes # 1.1 10^3/uL (0.8-4.8); Lymphocytes % 12.5 %; Mean Corpuscular Hemoglobin 29.1 pg (28.0-34.0); Mean Corpuscular Volume 93.8 fL (80-94); Mean Platelet Volume 9.7 fL (7.4-10.4); Monocytes # 0.8 10^3/uL (0.2-0.9); Monocytes % 9.3 %; Neutrophils # 6.8 10^3/uL (1.8-7.7); Neutrophils % 75.1 %; Nucleated Red Blood Cells % 0 %; Platelet Count 123 10^3/cmm (130-400); Red Cell Distribution Width 16.1 % (12.1-15.1); White Blood Count 9.1 10^3/uL (4.0-10.0)
[2020-01-27 05:47] LABS: Alanine Aminotransferase 64 U/L (0-41); Alkaline Phosphatase 126 IU/L (40-130); Aspartate Amino Transferase 65 U/L (0-40); Blood Urea Nitrogen 19 mg/dL (8-23); Carbon Dioxide 30 mmol/L (22-29); Chloride 99 mmol/L (98-107); Creatinine Clr Calc Pharmacy 128.2159; Globulin 4.1 g/dL (1.3-4.6); Glomerular Filtration Rate 114.3 mL/min (90-130); Glucose 107 mg/dL (65-115); Magnesium 2.1 mg/dL (1.7-2.3); Osmolality Calculated 285 mOsm/kg (285-295); Phosphorus 2.6 mg/dL (2.5-4.5); Sodium 139 mmol/L (136-145); Total Bilirubin 0.3 mg/dL (0.15-1.2); Total Protein 7.1 g/dL (6.6-8.7)
[2020-01-27 07:39] LABS: Glucose Point of Care 148 mg/dL (70-110)
[2020-01-27 07:39] LABS: Glucose Point of Care 104 mg/dL (70-110)
--- NOTE | 2020-01-27 07:53 | PC.PT ---
pt is a max of two transfer from NH, non-ambulator and only occasionally can self propel w/c. pt is not a rehab canidate. Will D/C PT order. Thank You
[2020-01-27] MEDS: pantoprazole 40 mg SDV IVP (10:13)
[2020-01-27] MEDS: clopidogrel 75 mg Tablet PO (10:14)
[2020-01-27] MEDS: aspirin 325 mg Tablet PO (10:14)
[2020-01-27] MEDS: phenytoin ER 100 mg Capsule PO ×3 (10:14→22:17)
[2020-01-27 11:49] LABS: Glucose Point of Care 136 mg/dL (70-110)
[2020-01-27] MEDS: dextrose 5% 1,000 ML 30 ML IV (16:09)
[2020-01-27] MEDS: enoxaparin 40 mg/0.4 mL Syringe SUBCUT (16:10)
[2020-01-27 17:21] LABS: Glucose Point of Care 135 mg/dL (70-110)
--- NOTE | 2020-01-27 21:43 | P.PN_ITS ---
Subjective Subjective: Interval history: Doing well today. No new changes, right arm still feeling weak, right leg is slightly stronger. Discussed events to date and his current condition with his state guardian. Vitals/I&O/Wt Last Vital Signs Temp 98.0 F 01/27/20 16:00 Pulse 99 01/27/20 16:00 Resp 16 01/27/20 16:00 BP 107/70 01/27/20 16:00 Pulse Ox 100 01/27/20 15:44 01/27/20 01/27/20 01/27/20 06:59 14:59 22:59 Intake Total 1050 / 1682 50 / 50 812.5 / 862.5 Output Total 450 / 1400 500 / 500 Balance 600 / 282 50 / 50 312.5 / 362.5 Physical Exam Const: COMMON NORMALS: no apparent distress GENERAL APPEARANCE: frail appearing NUTRITIONAL APPEARANCE: overweight OTHER: Asleep, but wakes up easily. Hard of hearing, but answers questions. Follows commands. HENMT: COMMON NORMALS: oropharynx normal Neck/C-Spine: COMMON NORMALS: no JVD Resp: COMMON NORMALS: normal respiratory effort and clear to auscultation bilaterally AUSCULTATION: clear to auscultation bilaterally Cardio: COMMON NORMALS: no JVD, regular rhythm, S1 normal heart sound, S2 normal heart sound and no murmurs RHYTHM: regular rhythm HEART SOUNDS: S1 normal and S2 normal GI: COMMON NORMALS: normal to inspection, nondistended, normoactive bowel sounds, soft to palpation and non-tender PALPATION: Yes soft Extremity: COMMON NORMALS: no joint enlargement and no pedal edema Neuro: OTHER: Noted ataxia and dysmetria. No facial droop. Right side weakness upper and lower. Is able to lift his arm off the bed but with significant effort. Can move right lower extremity across the surface of the bed. Skin: COMMON NORMALS: no rashes or lesions noted GENERAL SKIN EXAM: no rashes or lesions noted Urinary Catheter Management^: Ness: Cath Placed During This Visit: yes Urinary Catheter Date of Insertion: 01/25/20 Urinary Catheter Time of Insertion: 13:57 Data : 01/27/20 04:35 01/27/20 04:35 Micro: Microbiology 01/25/20 10:32 Urine Culture - Preliminary Urine,Clean Catch Escherichia coli Proteus mirabilis A&P Assessment and plan (1) Altered mental status: Concern for possible acute to subacute CVA 01/25, although with poor functioning at baseline, and he is not a good historian. He is unable to provide good details as to exactly what he was and was not able to do. He does report that he was able to walk, which does not correspond to the information getting from [facility]. There is some improvement in strength in the right lower extremity today. He is awake and alert, denies any headache. He is continued on dual antiplatelet therapy. Aspirin to 325 mg. Continue Plavix. Continue statin. Monitor on telemetry. On bedside swallow evaluation did well. Speech therapy assessment. Mechanical soft diet. CT with severe atherosclerotic disease and occlusion of distal right vertebral artery, right and right PICA appears to be occluded. 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 40% stenosis right internal carotid artery. Past cerebellar CVA. Follow-up in office with neurology. Status: Acute (2) UTI (urinary tract infection): Complicated urinary tract infection, with history of recurrent infections, with recent history of bilateral hydronephrosis, moderate in the right, left. Was seen by urology in office. Started on tamsulosin. From CT abdomen pelvis with marked bilateral perinephric stranding. Mild ureteral dilation. From what I understand this may be better compared to previous, with urology office report stating moderate right side dilation, mild left side. Maintain Ness in place. Continues on Flomax, although at this time will hold due to soft blood pressures. Continue Zosyn for UTI. Blood pressures improved. Status: Acute (3) Sepsis: Continue antibiotic at this time with Zosyn. Follow-up urine culture. If remains stable, diuretics well otherwise may transition to oral antibiotic, and may be able to discharge soon. Status: Acute (4) Pyelonephritis: As above. 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
[2020-01-27] MEDS: atorvastatin 40 mg Tablet 80 MG PO (22:17)
[2020-01-27 22:27] LABS: Glucose Point of Care 152 mg/dL (70-110)
[2020-01-28] VITALS (8 sets, daily range): BP systolic 100–132; BP diastolic 62–70; PULSE 68–88; RESP 16–20; TEMP 36.8–37.2; O2SAT 95–98
[2020-01-28] MEDS: piperacillin-tazobactam 3.375 GM in sodium chloride 0.9% (plus) 50 ML IV ×4 (00:58→23:42)
[2020-01-28 06:06] LABS: Basophils % 0.5 %; Eosinophils # 0.1 10^3/uL (0.0-0.8); Eosinophils % 2.2 %; Hematocrit 30.3 % (42.0-52.0); Hemoglobin 9.3 g/dL (11.7-16.6); Lymphocytes # 1.4 10^3/uL (0.8-4.8); Lymphocytes % 25.4 %; Mean Corpuscular HGB Conc 30.7 g/dL (30.0-36.0); Mean Corpuscular Hemoglobin 28.7 pg (28.0-34.0); Mean Corpuscular Volume 93.5 fL (80-94); Mean Platelet Volume 9.4 fL (7.4-10.4); Monocytes # 0.5 10^3/uL (0.2-0.9); Monocytes % 9.6 %; Neutrophils # 3.4 10^3/uL (1.8-7.7); Neutrophils % 61.8 %; Nucleated Red Blood Cells % 0 %; Platelet Count 117 10^3/cmm (130-400); Red Blood Count 3.24 10^6/uL (4.1-5.3); Red Cell Distribution Width 15.5 % (12.1-15.1); White Blood Count 5.5 10^3/uL (4.0-10.0)
[2020-01-28 06:22] LABS: Alanine Aminotransferase 77 U/L (0-41); Albumin Level 2.5 g/dL (3.5-5.2); Alkaline Phosphatase 105 IU/L (40-130); Anion Gap 14.1 (5-19); Aspartate Amino Transferase 76 U/L (0-40); Blood Urea Nitrogen 12 mg/dL (8-23); Calcium 8.4 mg/dL (8.5-10.5); Carbon Dioxide 26 mmol/L (22-29); Chloride 102 mmol/L (98-107); Creatinine Clr Calc Pharmacy 149.5852; Globulin 3.7 g/dL (1.3-4.6); Glomerular Filtration Rate 136.5 mL/min (90-130); Glucose 94 mg/dL (65-115); Magnesium 2.1 mg/dL (1.7-2.3); Osmolality Calculated 284 mOsm/kg (285-295); Phosphorus 2.9 mg/dL (2.5-4.5); Potassium 3.1 mmol/L (3.5-5.1); Sodium 139 mmol/L (136-145); Total Bilirubin 0.2 mg/dL (0.15-1.2); Total Protein 6.2 g/dL (6.6-8.7)
[2020-01-28 06:25] LABS: Glucose Point of Care 89 mg/dL (70-110)
[2020-01-28] MEDS: potassium chloride oral liq 20 mEq/15 mL UDC 40 MEQ PO (08:20)
[2020-01-28] MEDS: pantoprazole 40 mg SDV IVP (08:24)
[2020-01-28] MEDS: aspirin 325 mg Tablet PO (08:33)
[2020-01-28] MEDS: clopidogrel 75 mg Tablet PO (08:33)
[2020-01-28] MEDS: phenytoin ER 100 mg Capsule PO ×3 (08:33→21:25)
--- NOTE | 2020-01-28 09:10 | PC.SOCIAL ---
IMM Page 2 of [facility] explained to patient as well as patient's legal guardian Alexander Darby. Initialed, dated, and timed and placed in chart. Copy provided to patient.
[2020-01-28 10:52] LABS: Glucose Point of Care 98 mg/dL (70-110)
--- NOTE | 2020-01-28 12:45 | PM.PN ---
Subjective Subjective: Interval history: He denies any changes today. Denies any pain or discomfort. Vitals/I&O/Wt Last Vital Signs Temp 98.4 F 01/28/20 12:00 Pulse 68 01/28/20 12:00 Resp 20 H 01/28/20 12:00 BP 108/62 01/28/20 12:00 Pulse Ox 96 01/28/20 11:27 01/27/20 01/28/20 01/28/20 22:59 06:59 14:59 Intake Total 812.5 / 862.5 50 / 912.5 720 / 720 Output Total 1900 / 1900 1300 / 3200 1200 / 1200 Balance -1087.5 / -1037.5 -1250 / -2287.5 -480 / -480 Physical Exam Const: COMMON NORMALS: no apparent distress GENERAL APPEARANCE: frail appearing NUTRITIONAL APPEARANCE: overweight OTHER: Awake. Hard of hearing, but answers questions. Follows commands. HENMT: COMMON NORMALS: oropharynx normal Neck/C-Spine: COMMON NORMALS: no JVD Resp: COMMON NORMALS: normal respiratory effort and clear to auscultation bilaterally AUSCULTATION: clear to auscultation bilaterally Cardio: COMMON NORMALS: no JVD, regular rhythm, S1 normal heart sound, S2 normal heart sound and no murmurs RHYTHM: regular rhythm HEART SOUNDS: S1 normal and S2 normal GI: COMMON NORMALS: normal to inspection, nondistended, normoactive bowel sounds, soft to palpation and non-tender PALPATION: Yes soft Extremity: COMMON NORMALS: no joint enlargement and no pedal edema Neuro: COMMON NORMALS: moves all extremities OTHER: Noted ataxia and dysmetria. No facial droop. Right side weakness upper and lower. Is able to lift his arm off the bed but with significant effort. Can move right lower extremity across the surface of the bed. Skin: COMMON NORMALS: no rashes or lesions noted GENERAL SKIN EXAM: no rashes or lesions noted Urinary Catheter Management^: Ness: Cath Placed During This Visit: yes Urinary Catheter Date of Insertion: 01/25/20 Urinary Catheter Time of Insertion: 13:57 Data : 01/28/20 05:45 01/28/20 05:45 Micro: Microbiology 01/25/20 10:32 Urine Culture - Preliminary Urine,Clean Catch Escherichia coli Proteus mirabilis A&P Assessment and plan (1) Altered mental status: So far remained stable, although blood pressures have been on the soft side. He is not on any antihypertensives. For now continue to monitor given cerebellar infarction, poor posterior circulation, and if remains stable, potential discharge tomorrow. There is some improvement in strength in the right lower extremity today. He is awake and alert, denies any headache. He is continued on dual antiplatelet therapy. Aspirin 325 mg. Plavix. Continue statin. Monitor on telemetry. Speech therapy assessment - Mechanical soft diet. CT with severe atherosclerotic disease and occlusion of distal right vertebral artery, right and right PICA appears to be occluded. 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 40% stenosis right internal carotid artery. Past cerebellar CVA. Follow-up in office with neurology. Status: Acute (2) UTI (urinary tract infection): E. coli in urine, with resistance to a number of antibiotics. Also Proteus, pending sensitivities. Await results, if able to transition to oral cephalosporin on discharge. Complicated urinary tract infection, with history of recurrent infections, with recent history of bilateral hydronephrosis, moderate in the right, left. Was seen by urology in office. Started on tamsulosin. This has had to be held here due to soft blood pressures. From CT abdomen pelvis with marked bilateral perinephric stranding. Mild ureteral dilation. From what I understand this may be better compared to previous, with urology office report stating moderate right side dilation, mild left side. Maintain Ness in place. Continue Zosyn for UTI. Blood pressures improved. Status: Acute (3) Sepsis: Continue antibiotic at this time with Zosyn. Follow-up urine culture. If remains stable, diuretics well otherwise may transition to oral antibiotic, and may be able to discharge soon. Status: Acute (4) Pyelonephritis: As above. 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 Patient is a DNR, Guardianship of the [facility], Alexander Devit public database administrator #[id number] Attestations Medical Necessity Statement*: Continue admission for assessment and management of complicated urine tract infection, CVA. 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
[2020-01-28] MEDS: enoxaparin 40 mg/0.4 mL Syringe SUBCUT (15:23)
[2020-01-28 16:21] LABS: Glucose Point of Care 147 mg/dL (70-110)
[2020-01-28 20:49] LABS: Glucose Point of Care 118 mg/dL (70-110)
[2020-01-28] MEDS: atorvastatin 40 mg Tablet 80 MG PO (21:25)
[2020-01-29] VITALS: BP 132/69; BP 134/74; PULSE 86; PULSE 87; RESP 18; RESP 19; TEMP 36.9; TEMP 37.1; O2SAT 97
[2020-01-29 04:00] VITALS: BP 113/66; PULSE 90; RESP 19; TEMP 36.5; O2SAT 98
[2020-01-29 05:48] LABS: Basophils % 0.6 %; Eosinophils # 0.2 10^3/uL (0.0-0.8); Eosinophils % 3.5 %; Hematocrit 32.6 % (42.0-52.0); Hemoglobin 10.1 g/dL (11.7-16.6); Lymphocytes # 1.5 10^3/uL (0.8-4.8); Lymphocytes % 27.2 %; Mean Corpuscular Hemoglobin 28.9 pg (28.0-34.0); Mean Corpuscular Volume 93.4 fL (80-94); Mean Platelet Volume 9.5 fL (7.4-10.4); Monocytes # 0.5 10^3/uL (0.2-0.9); Monocytes % 9.3 %; Neutrophils # 3.2 10^3/uL (1.8-7.7); Nucleated Red Blood Cells % 0 %; Platelet Count 141 10^3/cmm (130-400); Red Blood Count 3.49 10^6/uL (4.1-5.3); Red Cell Distribution Width 15.6 % (12.1-15.1); White Blood Count 5.4 10^3/uL (4.0-10.0)
[2020-01-29 06:04] LABS: Alanine Aminotransferase 60 U/L (0-41); Albumin Level 2.9 g/dL (3.5-5.2); Alkaline Phosphatase 106 IU/L (40-130); Aspartate Amino Transferase 44 U/L (0-40); Blood Urea Nitrogen 11 mg/dL (8-23); Carbon Dioxide 26 mmol/L (22-29); Chloride 104 mmol/L (98-107); Creatinine Clr Calc Pharmacy 128.2159; Glomerular Filtration Rate 114.3 mL/min (90-130); Glucose 99 mg/dL (65-115); Osmolality Calculated 286 mOsm/kg (285-295); Sodium 140 mmol/L (136-145); Total Bilirubin 0.2 mg/dL (0.15-1.2); Total Protein 6.9 g/dL (6.6-8.7)
[2020-01-29 07:42] LABS: Glucose Point of Care 105 mg/dL (70-110)
[2020-01-29 07:49] VITALS: BP 93/57; PULSE 71; RESP 18; TEMP 36.4; O2SAT 97
[2020-01-29] MEDS: piperacillin-tazobactam 3.375 GM in sodium chloride 0.9% (plus) 50 ML IV ×2 (09:06→16:28)
[2020-01-29] MEDS: dextrose 5%-sod chloride 0.45% 1,000 ML 75 ML IV (09:06)
[2020-01-29] MEDS: aspirin 325 mg Tablet PO (09:06)
[2020-01-29] MEDS: phenytoin ER 100 mg Capsule PO ×3 (09:07→21:15)
[2020-01-29] MEDS: clopidogrel 75 mg Tablet PO (09:07)
[2020-01-29] MEDS: pantoprazole 40 mg SDV IVP (09:09)
--- NOTE | 2020-01-29 10:02 | PC.CHAP ---
Pastoral Care Encounter/Spiritual Assessment Type of Contact [] Declined mass spectrometry manager visit [] Patient/Family/Request visit [] Outpatient visit [] Follow-up visit [] Physician referral [] Code/Alert [x] Routine visit [] Staff referral [] Actively dying [] Patient sleeping [] Family support [] [] Out of room [] Palliative care [] [] Receiving care in room [] Pre-surgical visit [] Trauma [] Long length of stay [] ICU visit [] Other: Relational/Emotional Strength [] Patient feels connected with others/family/visitors/staff [] Distress [] Loneliness/isolation [] Abandonment Spirituality of Patient [] Person of Unique [] Attends Evangelical of their Unique [] Believes in Prayer [] Reads Bible or Faith materials [] There are Spiritual issues to be addressed [place] Interventions [x] Prayer [] Active listening [] Non-anxious presence [] Spiritual/emotional support [] Crisis/trauma care [] Spiritual counseling [] Bereavement support [] Provided bereavement packet [] Provided Bible/devotional materials [] Provided toy/stuffed animal, coloring book to patient or family member [] Provided Communion [] Anointing/[place] [] Salvation [x] Completed spiritual assessment [] Other: Impact on Illness or Injury [] Angry [] Fearful [] Anxious [] Often cries [] Exhaustion [] Unable to work [] Unable to attend hindu [] Unable to walk/stand [] Unable to read [] Unable to drive [] Unable to eat/drink [] Unable to sleep [] Unable to be with family [] Patient intubated [] Other: Summary Patient resting well. Time spent with patient 5 min
[2020-01-29 11:31] LABS: Glucose Point of Care 138 mg/dL (70-110)
[2020-01-29 11:50] VITALS: BP 100/66; PULSE 78; RESP 18; TEMP 36.2; O2SAT 98
[2020-01-29 16:00] VITALS: BP 105/67; PULSE 81; RESP 18; O2SAT 96
[2020-01-29] MEDS: enoxaparin 40 mg/0.4 mL Syringe SUBCUT (16:28)
[2020-01-29 17:05] LABS: Glucose Point of Care 170 mg/dL (70-110)
[2020-01-29 20:00] VITALS: BP 113/70; PULSE 75; RESP 18; TEMP 37; O2SAT 98
[2020-01-29 21:10] LABS: Glucose Point of Care 173 mg/dL (70-110)
[2020-01-29] MEDS: atorvastatin 40 mg Tablet 80 MG PO (21:15)
--- NOTE | 2020-01-29 21:49 | P.PN_ITS ---
Subjective Subjective: Interval history: He denies any complaints, although at the same time states does not remember our conversations previously. States that things are about the same for him. Vitals/I&O/Wt Last Vital Signs Temp 98.6 F 01/29/20 20:00 Pulse 75 01/29/20 20:00 Resp 18 01/29/20 20:00 BP 113/70 01/29/20 20:00 Pulse Ox 98 01/29/20 20:00 01/29/20 01/29/20 01/29/20 06:59 14:59 22:59 Intake Total 50 / 1170 1004 / 1004 480 / 1484 Output Total 1550 / 4625 400 / 400 Balance -1500 / -3455 604 / 604 480 / 1084 Physical Exam Const: COMMON NORMALS: no apparent distress GENERAL APPEARANCE: frail appearing NUTRITIONAL APPEARANCE: overweight OTHER: Awake. Hard of hearing, but answers questions. Follows commands. HENMT: COMMON NORMALS: oropharynx normal Neck/C-Spine: COMMON NORMALS: no JVD Resp: COMMON NORMALS: normal respiratory effort and clear to auscultation bilaterally AUSCULTATION: clear to auscultation bilaterally Cardio: COMMON NORMALS: no JVD, regular rhythm, S1 normal heart sound, S2 normal heart sound and no murmurs RHYTHM: regular rhythm HEART SOUNDS: S1 normal and S2 normal GI: COMMON NORMALS: normal to inspection, nondistended, normoactive bowel sounds, soft to palpation and non-tender PALPATION: Yes soft Extremity: COMMON NORMALS: no joint enlargement and no pedal edema Neuro: COMMON NORMALS: moves all extremities OTHER: Noted ataxia and dysmetria. No facial droop. Right side weakness upper and lower. Is able to lift his arm off the bed but with significant effort. Can lift right lower extremity off of bed. Skin: COMMON NORMALS: no rashes or lesions noted GENERAL SKIN EXAM: no rashes or lesions noted Urinary Catheter Management^: Ness: Cath Placed During This Visit: yes Urinary Catheter Date of Insertion: 01/25/20 Urinary Catheter Time of Insertion: 13:57 Data : 01/29/20 05:30 01/29/20 05:30 A&P Assessment and plan (1) Altered mental status: Improvement in mental right lower extremity. Today does not recall having her prior conversations. His functional capacity at baseline is poor, but I will try to confirm with [facility] whether or not he has had memory issues in the past. He denies any complaints. His blood pressure is low today, necessitating starting IV fluid. With CVA, low blood pressure is concerning so was he does not develop worsening ischemia of posterior fossa. Will reassess CT scan. He is continued on dual antiplatelet therapy. Aspirin 325 mg. Plavix. Continue statin. Monitor on telemetry. Speech therapy assessment - Mechanical soft diet. CT with severe atherosclerotic disease and occlusion of distal right vertebral artery, right and right PICA appears to be occluded. Occlusion of left MEDICAL TECHNOLOGIST CLINICAL. 40% stenosis right internal carotid artery. Past cerebellar CVA. Follow-up in office with neurology. Status: Acute (2) UTI (urinary tract infection): E. coli in urine, with resistance to a number of antibiotics. Also Proteus, also sensitive to Zosyn Should be able to successfully transition to oral cephalosporin on discharge. Complicated urinary tract infection, with history of recurrent infections, with recent history of bilateral hydronephrosis, moderate in the right, left. Was seen by urology in office. Started on tamsulosin. This has had to be held here due to soft blood pressures. From CT abdomen pelvis with marked bilateral perinephric stranding. Mild ureteral dilation. From what I understand this may be better compared to previous, with urology office report stating moderate right side dilation, mild left side. Maintain Ness in place. Status: Acute (3) Sepsis: Continue antibiotic at this time with Zosyn. Follow-up urine culture. If remains stable, diuretics well otherwise may transition to oral antibiotic, and may be able to discharge soon. Status: Acute (4) Pyelonephritis: As above. Status: Acute (5) Epilepsy: Continue home medications Status: Acute (6) REGIONAL AIRLINE PILOT (ventriculoperitoneal) shunt status: Status: Acute Additional A&P Information Hypokalemia: Replaced potassium. 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 Coding Level of Care Code Acute Extermination Inspector for [facility] Fwd Diagnoses Altered mental status R41.82 UTI (urinary tract infection) N39.0 Sepsis A41.9 Pyelonephritis N12 Epilepsy G40.909 REGIONAL AIRLINE PILOT (ventriculoperitoneal) shunt status Z98.2
[2020-01-30] VITALS: BP 106/69; PULSE 78; RESP 18; TEMP 37; O2SAT 96
[2020-01-30] MEDS: piperacillin-tazobactam 3.375 GM in sodium chloride 0.9% (plus) 50 ML IV ×2 (00:39→08:38)
[2020-01-30] MEDS: dextrose 5%-sod chloride 0.45% 1,000 ML 75 ML IV (00:43)
[2020-01-30 04:00] VITALS: BP 112/73; PULSE 72; RESP 18; TEMP 36.9; O2SAT 97
[2020-01-30 06:20] LABS: Basophils % 0.4 %; Eosinophils # 0.2 10^3/uL (0.0-0.8); Eosinophils % 3.4 %; Hematocrit 30.6 % (42.0-52.0); Hemoglobin 9.9 g/dL (11.7-16.6); Lymphocytes # 1.5 10^3/uL (0.8-4.8); Lymphocytes % 30.9 %; Mean Corpuscular HGB Conc 32.4 g/dL (30.0-36.0); Mean Corpuscular Hemoglobin 29.2 pg (28.0-34.0); Mean Corpuscular Volume 90.3 fL (80-94); Mean Platelet Volume 9.4 fL (7.4-10.4); Monocytes # 0.5 10^3/uL (0.2-0.9); Monocytes % 10.5 %; Neutrophils # 2.6 10^3/uL (1.8-7.7); Neutrophils % 54.4 %; Nucleated Red Blood Cells % 0 %; Platelet Count 140 10^3/cmm (130-400); Red Blood Count 3.39 10^6/uL (4.1-5.3); Red Cell Distribution Width 15.3 % (12.1-15.1); White Blood Count 4.8 10^3/uL (4.0-10.0)
[2020-01-30 06:37] LABS: Glucose Point of Care 116 mg/dL (70-110)
[2020-01-30 06:39] LABS: Alanine Aminotransferase 43 U/L (0-41); Albumin Level 2.7 g/dL (3.5-5.2); Alkaline Phosphatase 98 IU/L (40-130); Anion Gap 13.8 (5-19); Aspartate Amino Transferase 28 U/L (0-40); Blood Urea Nitrogen 10 mg/dL (8-23); Calcium 8.7 mg/dL (8.5-10.5); Carbon Dioxide 25 mmol/L (22-29); Chloride 105 mmol/L (98-107); Creatinine Clr Calc Pharmacy 149.5852; Globulin 3.6 g/dL (1.3-4.6); Glomerular Filtration Rate 136.5 mL/min (90-130); Glucose 126 mg/dL (65-115); Osmolality Calculated 288 mOsm/kg (285-295); Potassium 3.8 mmol/L (3.5-5.1); Sodium 140 mmol/L (136-145); Total Bilirubin 0.2 mg/dL (0.15-1.2); Total Protein 6.3 g/dL (6.6-8.7)
[2020-01-30 07:08] VITALS: BP 112/69; PULSE 68; RESP 17; TEMP 36.5; O2SAT 96
--- NOTE | 2020-01-30 08:00 | CTR_ITS ---
PROCEDURE INFORMATION: Exam: CT Head Without Contrast Exam date and time: 01/30/2020 7:42 AM Age: 64 years old Clinical indication: Other: Cerebellar CVA follow up; Prior surgery; Surgery date: 6+ months; Surgery type: Shunt; Additional info: Cerebellar CVA follow-up TECHNIQUE: Imaging protocol: Computed tomography of the head without contrast. Radiation optimization: All CT scans at this facility use at least one of these dose optimization techniques: automated exposure control; mA and/or kV adjustment per patient size (includes targeted exams where dose is matched to clinical indication); or iterative reconstruction. COMPARISON: CT head wo con* [id number] 01/25/2020 9:28 PM RADIATION DOSE METRICS: Total DLP: 894.81 mGy-cm FINDINGS: Brain: Bilateral areas of dural thickening. Areas of encephalomalacia right cerebellar hemisphere, right occipital lobe and left posterior parietal lobe. No acute intracranial hemorrhage. Low attenuating encephalomalacia of the right frontal lobe surrounding the shunt tubing. Radiopaque metallic artifact within the right occipital lobe. Ventricles: Ventricular shunt catheters placed at the right frontal bone tip position extending to the left lateral ventricle and left-sided ventricular catheter tip resides right frontal horn of the lateral ventricle. Bones/joints: Midline posterior surgical calvarial defect. Additional surgical craniotomy defect left frontoparietal bone. Sinuses: Visualized sinuses are unremarkable. No fluid levels. Mastoid air cells: Visualized mastoid air cells are well aerated. Soft tissues: Unremarkable. Other findings: Hemispheric volume loss. Hemispheric volume loss. CT/CT head wo con* [id number]: 1. Stable CT of the brain without acute intracranial process. 2. Multifocal areas of encephalomalacia and multifocal areas of bilateral dural thickening or calcification probably postoperative. Radiation Dose CTDIVOL = (mGy): DLP = 894.81 (mGy-cm)
[2020-01-30] MEDS: phenytoin ER 100 mg Capsule PO ×2 (08:50→15:05)
[2020-01-30] MEDS: aspirin 325 mg Tablet PO (08:50)
[2020-01-30] MEDS: clopidogrel 75 mg Tablet PO (08:50)
[2020-01-30] MEDS: pantoprazole 40 mg SDV IVP (09:34)
[2020-01-30 11:30] LABS: Glucose Point of Care 132 mg/dL (70-110)
[2020-01-30 12:00] VITALS: BP 115/73; PULSE 65; RESP 18; TEMP 36.7; O2SAT 96
--- NOTE | 2020-01-30 12:20 | PC.SOCIAL ---
IMM Updated Updated pt on Pg 2 IMM. Pt verbally understands. No questions voiced. A copy was provided & left on pt's bedside table. Signed, dated, & timed the copy in pt's chart.
--- NOTE | 2020-01-30 14:05 | PM.DCS ---
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 On presentation with acute encephalopathy most likely secondary to infection and sepsis. Was treated with Zosyn, IV hydration. Noted hydronephrosis on CT scan greater on the left, however, this appears to be improved compared to report from urology visit last month with bilateral hydronephrosis worse on the right. At that time Ness catheter was placed and he was started on Flomax. During this hospitalization shortly after admission noted with worsened mental status, weakness, more pronounced on the right, with unclear baseline consideration was given to acute CVA. Patient himself is not a good historian, although was expressing that his right side felt weaker than normal. He was started on dual antiplatelet therapy, and his statin dose was increased to high intensity. Imaging with CT revealed severe atherosclerotic disease and occlusion of distal right vertebral artery, right and right PICA appears to be occluded. Occlusion of left C.O.D. CLERK. 40% stenosis right internal carotid artery. Past cerebellar CVA. Due to blood pressures on the soft side while in the hospital his tamsulosin had to be held. He gradually improved. His urine culture eventually grew E. coli and Proteus, with resistance, but susceptible to cephalosporins, and he will complete an antibiotic course on discharge with 7 more days of Omnicef. Continue indwelling Ness catheter at this time. Follow-up with urology. Resume tamsulosin once it is safe from blood pressure perspective. Avoid hypotension given past cerebellar stroke and severe posterior circulation disease, possibly currently with recurrence/progression. Please assist him in follow-up with neurology as well. Physical Exam Const: COMMON NORMALS: no apparent distress GENERAL APPEARANCE: frail appearing NUTRITIONAL APPEARANCE: overweight OTHER: Awake. Hard of hearing, but answers questions. Follows commands. HENMT: COMMON NORMALS: oropharynx normal Neck/C-Spine: COMMON NORMALS: no JVD Resp: COMMON NORMALS: normal respiratory effort and clear to auscultation bilaterally AUSCULTATION: clear to auscultation bilaterally Cardio: COMMON NORMALS: no JVD, regular rhythm, S1 normal heart sound, S2 normal heart sound and no murmurs RHYTHM: regular rhythm HEART SOUNDS: S1 normal and S2 normal GI: COMMON NORMALS: normal to inspection, nondistended, normoactive bowel sounds, soft to palpation and non-tender PALPATION: Yes soft Extremity: COMMON NORMALS: no joint enlargement and no pedal edema Neuro: COMMON NORMALS: moves all extremities OTHER: Noted ataxia and dysmetria. No facial droop. Right side weakness upper and lower. Is able to lift his arm off the bed but with significant effort. Can lift right lower extremity off of bed. Skin: COMMON NORMALS: no rashes or lesions noted GENERAL SKIN EXAM: no rashes or lesions noted Urinary Catheter Management^: Ness: Cath Placed During This Visit: yes Urinary Catheter Date of Insertion: 01/25/20 Urinary Catheter Time of Insertion: 13:57 Discharge Data Data Completed and Pending: Completed Studies During Hospitalization Category Date Time Status CT abdomen pelvis w con* [id number] Stat Cat Scan 01/25/20 12:[address] angio headneck * [id number] Stat Cat Scan 01/25/20 21:[address] head wo con* 7 0450 Routine Cat Scan 01/30/20 08:[address] head wo con* 7 0450 Stat Cat Scan 01/25/20 21:11 Completed XR chest 1V mecca ble [id number] Stat Exams 01/25/20 16:44 Completed Pending at discharge Category Date Time Status Complete Blood Co unt w/Auto AM LABS Lab 01/31/20 04:00 Ordered Comprehensive Met abolic Panel AM LA BS Lab 01/31/20 04:00 Ordered Labs from last 24 hours 01/30/20 01/30/20 01/30/20 10:44 06:27 05:43 WBC RBC Hgb Hct MCV MCH MCHC RDW Plt Count MPV Neut % (Auto) Lymph % (Auto) [place] % (Auto) Eos % (Auto) Baso % (Auto) Neut # (Auto) Lymph # (Auto) [place] # (Auto) Eos # (Auto) Baso # (Auto) Nucleated RBC % (a uto) Nucleated RBCs # Sodium 140 Potassium 3.8 Chloride 105 Carbon Dioxide 25 Anion Gap 13.8 BUN 10 Creatinine 0.6 L GFR Calculation 136.5 H Glucose 126 H POC Glucose 132 116 Calculated Osmolal ity 288 Calcium 8.7 Total Bilirubin 0.2 AST 28 ALT 43 H Alkaline Phosphata se 98 Total Protein 6.3 L Albumin 2.7 L Globulin 3.6 01/30/20 01/29/20 01/29/20 05:43 21:01 16:57 WBC 4.8 RBC 3.39 L Hgb 9.9 L Hct 30.6 L MCV 90.3 MCH 29.2 MCHC 32.4 RDW 15.3 H Plt Count 140 MPV 9.4 Neut % (Auto) 54.4 Lymph % (Auto) 30.9 [place] % (Auto) 10.5 Eos % (Auto) 3.4 Baso % (Auto) 0.4 Neut # (Auto) 2.6 Lymph # (Auto) 1.5 [place] # (Auto) 0.5 Eos # (Auto) 0.2 Baso # (Auto) 0.0 Nucleated RBC % (a uto) 0 Nucleated RBCs # 0.0 Sodium Potassium Chloride Carbon Dioxide Anion Gap BUN Creatinine GFR Calculation Glucose POC Glucose 173 170 Calculated Osmolal ity Calcium Total Bilirubin AST ALT Alkaline Phosphata se Total Protein Albumin Globulin Vitals: Last Vital Signs Temp 98.0 F 01/30/20 12:00 Pulse 65 01/30/20 12:00 Resp 18 01/30/20 12:00 BP 115/73 01/30/20 12:00 Pulse Ox 96 01/30/20 12:00 Discharge Plan Discharge Patient Disposition: Xfer SNF Condition: Stable Prescriptions: New clopidogrel 75 mg Tablet 75 mg PO DAILY Qty: 30 RF: 0 cefdinir 300 mg capsule 300 mg PO BID Qty: 14 RF: 0 aspirin 81 mg tablet,chewable 81 mg PO DAILY Qty: 30 RF: 0 Continued ferrous sulfate 325 mg (65 mg iron) tablet 325 mg PO DAILY RF: 0 valproic acid (as sodium salt) 250 mg/5 mL solution 250 mg PO BID RF: 0 furosemide 80 mg tablet 80 mg PO DAILY RF: 0 omeprazole 20 mg capsule,delayed release(DR/EC) 20 mg PO DAILY RF: 0 phenytoin sodium extended 100 mg capsule 100 mg PO TID RF: 0 acetaminophen 325 mg Tablet 325 mg PO Q4H PRN (Reason: Pain) RF: 0 albuterol sulfate 2.5 mg /3 mL (0.083 %) Solution For Nebulization 2.5 mg INHALATION TID PRN (Reason: Shortness Of Breath) RF: 0 Senna-S 8.6-50 mg Tablet 1 tab-cap PO BID PRN (Reason: Constipation) RF: 0 Milk of Magnesia 400 mg/5 mL Suspension 400 mg PO DAILY PRN (Reason: Constipation) RF: 0 bisacodyl 10 mg Suppository 10 mg MA DAILY PRN (Reason: Constipation) RF: 0 Enema 19-7 gram/118 mL Enema 118 ml MA DAILY PRN (Reason: Constipation) RF: 0 Miralax 17 gram/dose Powder 17 g PO DAILY PRN (Reason: Constipation) RF: 0 TwoCal HN 0.08-2 gram-kcal/mL Liquid 90 ea PO TID RF: 0 potassium chloride 20 mEq Tablet Extended Release 20 meq PO DAILY RF: 0 Changed atorvastatin 40 mg tablet 80 mg PO DAILY Qty: 0 RF: 0 Held Flomax 0.4 mg Capsule 0.4 mg PO DAILY RF: 0 Hold Instructions: Resume on 02/06/20. Discharge Orders: Discharge Order (Routine); Ordered 01/30/20 Ordered By: Berto Bearden Referrals: Danika Morfin MD [Physician] - 1 week (cva) Damien Huerta MD [Physician] - 2 weeks (Please call on Saturday to schedule an appointment due to Chronic Ness, hydronephrosis, BPH with soft blood pressures) Lucian Torres MD [Primary Care Provider] - 4-7 days (On Saturday, please call and schedule a follow up appointment to be seen in 4 to 7 days) Discharge Diet: Usual diet and Soft Mechanical Discharge Activity: Increase activity as tolerated and As per PT/OT instructions Activity Restrictions/Additional Instructions: Maintain Ness catheter, exchange monthly as per udology. Tamsulosin had to be held, for a week for now due to soft blood pressures. Please resume when safe. Reposition frequently due to high risk of pressure sores. Continue other recurrent follow-up as previously. Discharge Attestations Time Spent in Discharge Care*: greater than 30 min Quality Metrics Clinical Quality Measures During this hospital stay, did patient experience: Stroke Contraindication to Antithrombotic: Antithrombotic prescribed Contraindication to Anticoagulation: Overlap treatment not indicated Contraindication to Statin: Statin prescribed Coding Level of Care Code Acute Canoe Builder for [facility] Fwd Diagnoses UTI (urinary tract infection) N39.0 Altered mental status R41.82 Pyelonephritis N12 Sepsis A41.9 Epilepsy G40.909 TALENT SOURCING SPECIALIST (ventriculoperitoneal) shunt status Z98.2
[2020-01-30 14:29] VITALS: BP 115/73; PULSE 65; RESP 18; TEMP 36.7; O2SAT 96
[2020-01-30] MEDS: cefdinir 300 MG CAPSULE PO (14:59)
[2020-01-30 15:33] VITALS: BP 105/69; PULSE 77; RESP 17; TEMP 36.9; O2SAT 99
[2020-01-30 16:36] LABS: Glucose Point of Care 116 mg/dL (70-110)
== END 2020-01-30 17:01 | disposition skilled nursing facility (03) | DRG 871 ==
LOC: ER 15:44 → ICU 15:45 → MEDSURG 01-27 14:40
PROVIDERS: Admitting Provider Family Medicine; Emergency Provider Family Medicine; Family Provider Family Medicine; PCP Family Medicine; Visit Provider Internal Medicine
DX: A41.9 Sepsis, unspecified organism (principal); I63.9 Cerebral infarction, unspecified; N13.8 Other obstructive and reflux uropathy; N10 Acute pyelonephritis; N39.0 Urinary tract infection, site not specified; G81.91 Hemiplegia, unspecified affecting right dominant side; G93.40 Encephalopathy, unspecified; G40.909 Epilepsy, unspecified, not intractable, without status epilepticus; E78.5 Hyperlipidemia, unspecified; N40.1 Benign prostatic hyperplasia with lower urinary tract symptoms; R33.8 Other retention of urine; Z96.0 Presence of urogenital implants; F20.9 Schizophrenia, unspecified; Z98.2 Presence of cerebrospinal fluid drainage device; Z66 Do not resuscitate; Z87.440 Personal history of urinary (tract) infections; I25.10 Atherosclerotic heart disease of native coronary artery without angina pectoris; R29.810 Facial weakness; R29.713 NIHSS score 13; B96.20 Unspecified Escherichia coli [E. coli] as the cause of diseases classified elsewhere; B96.4 Proteus (mirabilis) (morganii) as the cause of diseases classified elsewhere; E87.6 Hypokalemia; F03.90 Unspecified dementia, unspecified severity, without behavioral disturbance, psychotic disturbance, mood disturbance, and anxiety
CPT/HCPCS: 12345; 36415; 36416; 36600; 51702; 70450; 70496; 70498; 71045; 74177; 80051; 80053; 81001; 82810; 82962; 83036; 83605; 83690; 83735; 83986; 84100; 84145; 84443; 85025; 85610; 86140; 87040; 87077; 87086; 87186; 92523; 92610; 93005; 94664; 96372; 96375; 97166; 99283; C9113; J0696; J1165; J1650; J1815; J2543; J7030; J7799; Q9967

== ENCOUNTER → 2020-02-02 13:56 | Outpatient (BNVA) | payer MEDICARE, MEDICAID, SELFPAY | PROVIDERS: Family Provider Family Medicine; PCP Family Medicine; Visit Provider Specialist | DX: Z86.73 Personal history of transient ischemic attack (TIA), and cerebral infarction without residual deficits (principal) | CPT/HCPCS: 99205 ==

== ENCOUNTER 2020-02-09 08:20 | Outpatient (CLI) | payer MEDICAID, OTHER, SELFPAY ==
--- NOTE | 2020-02-09 08:45 | US_ITS ---
WS: [id number] RENAL ULTRASOUND HISTORY: urinary retention COMPARISON: None available. TECHNIQUE: 2-D and color Doppler imaging of the kidney submitted. Right kidney: 10.3 cm x 5.5 cm x 5.6 cm. Normal echogenicity with no hydronephrosis or mass. Left kidney: 11.6 cm x 5.1 cm x 5.3 cm. Normal echogenicity with no hydronephrosis or mass. Aorta: Normal. Urinary Bladder: Ness catheter in a nondistended urinary bladder. US/US renal BI* [id number] IMPRESSION: Normal renal ultrasound.
== END 2020-02-09 08:21 | disposition home or self-care (01) ==
LOC: RAD 08:24
PROVIDERS: Family Provider Family Medicine; PCP Family Medicine; Visit Provider Urology
DX: R33.9 Retention of urine, unspecified (principal)
CPT/HCPCS: 76770

== ENCOUNTER 2020-02-15 01:42 | Inpatient (IN) | payer MEDICARE, MEDICAID, SELFPAY ==
[2020-02-15] VITALS (31 sets, daily range): BP systolic 72–111; BP diastolic 38–80; PULSE 65–120; RESP 11–29; TEMP 36.7–37.4; O2SAT 93–100; BMI 27.1; BMI 27.8
--- NOTE | 2020-02-15 01:48 | XR_ITS ---
WS: [id number] Portable AP upright chest, 02/15/2020 Clinical Data: cough Comparison: Portable chest, 01/25/2020 Findings: No nodules, masses or effusions are seen. The heart is normal. The pulmonary vascularity is not increased. No pneumonia or pneumothorax is seen. The right diaphragm remains elevated. There is a ventriculoperitoneal shunt tube overlying the right chest. Monitor leads on the chest wall. XR/XR chest 1V portable [id number] Impression: Negative for acute cardiopulmonary disease.
--- NOTE | 2020-02-15 01:50 | ECG_ITS ---
Measurements Intervals [place] Rate: 110 P: 44 TX: 153 QRS: 48 QRSD: 91 T: 71 QT: 338 QTc: [address] DEPRESSION [0.025+ mV ST DEPRESSION] Compared to ECG 01/25/2020 13:19:15 ST (T wave) deviation now present T-wave abnormality no longer present Possible ischemia no longer present Electronically Signed On 02-15-2020 19:49:56 CDT by Kristal Lundberg M.D. [email or web address]
[2020-02-15] MEDS: ipratropium-albuterol 3 mL Neb INHALATION (02:00)
[2020-02-15 02:10] LABS: Basophils % 0.1 %; Eosinophils % 0.1 %; Hematocrit 36.6 % (42.0-52.0); Hemoglobin 11.8 g/dL (11.7-16.6); Lymphocytes # 0.9 10^3/uL (0.8-4.8); Lymphocytes % 6.2 %; Mean Corpuscular HGB Conc 32.2 g/dL (30.0-36.0); Mean Corpuscular Hemoglobin 29.9 pg (28.0-34.0); Mean Corpuscular Volume 92.7 fL (80-94); Mean Platelet Volume 9.5 fL (7.4-10.4); Monocytes % 13.2 %; Neutrophils # 11.8 10^3/uL (1.8-7.7); Neutrophils % 79.9 %; Nucleated Red Blood Cells % 0 %; Platelet Count 152 10^3/cmm (130-400); Red Blood Count 3.95 10^6/uL (4.1-5.3); Red Cell Distribution Width 16.5 % (12.1-15.1); White Blood Count 14.8 10^3/uL (4.0-10.0)
[2020-02-15] MEDS: sodium chloride 0.9% 1,000 ML 150 ML IV (02:10)
[2020-02-15 02:16] LABS: ABG PCO2 37.1 mmHg (35-45); ABG PH Result 7.46 (7.35-7.45); Alveolar-Arterial Oxygen Gradi 23.8 mmHg (5-10); Arterial Blood Gas Hematocrit 37.8 % (42-52); Base Excess ABG 2.3 mmol/L (-2.0-2.0); Blood Gas Sample Site Radial, left; Blood Gas Sample Type Arterial; Carboxyhemoglobin 0.8 %THgb (0.4-20.1); HCO3 ABG 26.1 mmol/L (22-26); HGB O2 Sat 95.2 % (95-100); Ionized Calcium Level - ABG 1.2 mmol/L (1.1-1.4); Methemoglobin 0.8 % (0.4-1.5); Oxygen Device NC; Oxygen Saturation ABG 96.7; PO2 ABG 77.9 mmHg (80.0-100.0); Potassium Level - ABG 3.4 mmol/L (3.5-5.0); Total Hemoglobin 12.3 g/dL (14-18)
[2020-02-15] MEDS: sodium chloride 0.9% 1,000 ML 999 ML IV ×3 (02:16→02:38)
[2020-02-15 02:17] LABS: INR 0.96 (0.8-1.2)
[2020-02-15 02:28] LABS: Alanine Aminotransferase 29 U/L (0-41); Albumin Level 4.3 g/dL (3.5-5.2); Alkaline Phosphatase 114 IU/L (40-130); Anion Gap 20.6 (5-19); Aspartate Amino Transferase 31 U/L (0-40); Blood Urea Nitrogen 14 mg/dL (8-23); Carbon Dioxide 24 mmol/L (22-29); Chloride 101 mmol/L (98-107); Globulin 2.8 g/dL (1.3-4.6); Glomerular Filtration Rate 85.5 mL/min (90-130); Glucose 188 mg/dL (65-115); Magnesium 1.9 mg/dL (1.7-2.3); Osmolality Calculated 295 mOsm/kg (285-295); Potassium 3.6 mmol/L (3.5-5.1); Sodium 142 mmol/L (136-145); Total Bilirubin 0.2 mg/dL (0.15-1.2); Total Protein 7.1 g/dL (6.6-8.7)
[2020-02-15 02:32] LABS: Lactic Sepsis W/Reflex 4.1 mmol/L (0.5-2.2); Troponin(5th) Baseline 862 ng/mL (0-15)
--- NOTE | 2020-02-15 02:33 | PC.NURSE ---
Lab called critical troponin of 862 and lactic acid 4.1
[2020-02-15 02:39] LABS: Amphetamines Screen Urine Negative (Negative); Barbiturates Screen Urine Positive (Negative); Benzodiazepines Screen Urine Negative (Negative); Cocaine Screen Urine Negative (Negative); Opiate Screen Urine Negative (Negative); PCP Screen Urine Negative (Negative); THC Screen Urine Negative (Negative)
--- NOTE | 2020-02-15 02:40 | W.ED.SOB ---
HPI - SOB/Dyspnea General: Chief Complaint: Shortness of Breath/Dyspnea Stated Complaint: respt distress Time Seen by Provider: 02/15/20 01:43 History of Present Illness: HPI Narrative: Sammy is a 64-year-old male brought in from the residential with report of respiratory distress and hypoxemia. Patient has an altered mental status at this time. It is unknown what his baseline is. The patient does have mild tachypnea but his lung sounds are clear. It is reported that he has been declining over the past 2 days. The patient is unable to give any further information. Review of Systems General: Reports: ROS unobtainable due to mental status PFSH ED PFSH: Medical History Anemia Congestive heart failure Coronary artery disease Dementia Diabetes mellitus Epilepsy GERD (gastroesophageal reflux disease) Hydrocephalus Hyperlipidemia Peripheral vascular disease Schizophrenia TIA (transient ischemic attack) Urinary retention Surgical History FOUNDRY HAND (ventriculoperitoneal) shunt status Family History Unknown No problems noted. Social History Smoking and tobacco status: unknown if ever smoked Alcohol intake: never Housing: [facility] Marital status: Single Current occupational status: retired History of recent travel: No Current gender identity: Male Physical Exam Const: COMMON NORMALS: no limitations, healthy appearing and well nourished EXAM LIMITATIONS: no altered mental status GENERAL APPEARANCE: cooperative, well developed and lethargic ORIENTATION/CONSCIOUSNESS: Yes awake, Yes oriented to person and Yes lethargic HENMT: COMMON NORMALS: normocephalic, atraumatic, hearing grossly normal bilaterally, external ears normal, EAC's normal and Normal external nose present HEAD & SCALP: normal to inspection, normocephalic and atraumatic FACE & SINUS: normal facial exam and face symmetric NOSE: Normal external nose present and Normal nares present EXTERNAL EAR: Yes external ears normal EXTERNAL AUDITORY CANAL: EAC's normal MOUTH: Normal oral and palatal mucosa present, lip normal, tongue normal and moist mucous membranes abnormal Details: parched Eye: COMMON NORMALS: Equal, round and reactive pupils present, EOMs intact bilaterally, conjunctivae normal and no scleral icterus GENERAL EYE: appearance normal, both eyes and all related structures ALIGNMENT: Yes alignment normal PERIORBITAL: periorbital findings normal EYELID: eyelids normal CONJUNCTIVA: Yes conjunctivae normal SCLERA: sclerae normal PUPIL: Yes Equal, round and reactive pupils present Neck/C-Spine: COMMON NORMALS: full ROM, no lymphadenopathy, supple, no meningeal signs and no JVD GENERAL: Yes normal visual inspection and Yes trachea midline CERVICAL SPINE: Yes cervical ROM normal Chest: COMMONS NORMALS: normal inspection of the chest and normal palpation of entire chest wall Resp: COMMON NORMALS: normal respiratory effort, No retractions, No use of accessory muscles and clear to auscultation bilaterally EFFORT & INSPECTION: Yes able to speak in complete sentences AUSCULTATION: clear to auscultation bilaterally, no crackles, no rales, no rhonchi and no wheezes Cardio: COMMON NORMALS: no JVD, regular rate, regular rhythm, S1 normal heart sound present, S2 normal heart sound present, No gallops present (Cardio), No clicks present (Cardio), No murmurs present (Cardio) and No rub (Cardio) RATE: regular rate RHYTHM: regular rhythm HEART SOUNDS: S1 normal heart sound present, S2 normal heart sound present, no click, no gallops, no murmurs and no rubs GI: COMMON NORMALS: Soft to palpation, non-tender, No hepatosplenomegaly present and no masses PALPATION: Yes Soft to palpation, No Tenderness to palpation present (GI), No Guarding due to palpation present (GI), No Rigid due to palpation, Yes No hepatosplenomegaly present, No Hernia present, No Palpable mass present and No Pulsatile mass present : COMMON NORMALS: Yes no CVA tenderness BLADDER/KIDNEY EXAM: Yes no CVA tenderness Back/Pelvis: COMMON NORMALS: no CVA tenderness, thoracic and lumbar spine normal to inspection, no thoracic nor lumbar tenderness and thoraco-lumbar ROM normal Extremity: COMMON NORMALS: normal to inspection, full ROM, capillary refill normal, no joint enlargement, no clubbing, cyanosis or edema and no calf tenderness Neuro: COMMON NORMALS: moves all extremities and no sensory deficits noted SENSORIUM/ORIENTATION: Yes oriented to person and Yes lethargic MENINGEAL SIGNS: Yes no meningeal signs Skin: COMMON NORMALS: turgor normal, no jaundice, no petechiae and no mottling NARRATIVE SKIN EXAM: Patch psoriasis noted to neck GENERAL SKIN EXAM: turgor normal Course Vital Signs: Vital signs: Vital Signs Temperature 99.3 F 02/15/20 01:49 Pulse Rate 86 02/15/20 04:00 Respiratory Rate 25 H 02/15/20 04:00 Blood Pressure 81/57 02/15/20 04:00 Pulse Oximetry 99 02/15/20 04:00 MDM - SOB/Dyspnea MDM Narrative: Medical decision making narrative: Mr. Farmer is a nice 64-year-old male who comes in with a report of hypoxia and respiratory distress. Patient's chest x-ray shows elevated hemidiaphragms with interposed bowel but this is a finding consistent with the previous chest x-ray. He does have a urinary tract infection and is in septic shock at this time. Vasopressors have been initiated as his hypotension has not responded to IV fluid administration. Per review of his last urinalysis culture he had E. coli and Proteus that were both sensitive to Zosyn. The patient is improved at this time and is acting more appropriately. The patient to me does not appear to have a neurologic issue that could be manifested from a shunt problem. His abdomen is soft and once I found his previous chest x-ray showing the bowel interposed I do not believe a CT of the abdomen pelvis is absolutely necessary. I have endorsed the case to Dr. Chavez who is coming to see the patient. He will discuss the case with me after he is seen the patient and we may end up performing the CTs but nonetheless the patient will be admitted to the ICU. Dr. Chavez is seen the patient and agrees with going ahead with a CT of the head and abdomen and pelvis. Patient is doing much better on Levophed at this time. We are awaiting an ICU bed so we will go ahead with CTs while the patient is here in the ER. Dr[facility] Chavez [facility] up on CTs. Lab Data: Attestation: I reviewed the patient's lab results. Labs: Lab Results 02/15/20 02/15/20 02/15/20 Range/Units 02:05 02:05 02:05 WBC 14.8 H (4.0-10.0) 10^3/ uL RBC 3.95 L (4.1-5.3) 10^6/u L Hgb 11.8 (11.7-16.6) g/dL Hct 36.6 L (42.0-52.0) % MCV 92.7 (80-94) fL MCH 29.9 (28.0-34.0) pg MCHC 32.2 (30.0-36.0) g/dL RDW 16.5 H (12.1-15.1) % Plt Count 152 (130-400) 10^3/c mm MPV 9.5 (7.4-10.4) fL Neut % (Auto) 79.9 % Lymph % (Auto) 6.2 % [place] % (Auto) 13.2 % Eos % (Auto) 0.1 % Baso % (Auto) 0.1 % Neut # (Auto) 11.8 H (1.8-7.7) 10^3/u L Lymph # (Auto) 0.9 (0.8-4.8) 10^3/u L [place] # (Auto) 2.0 H (0.2-0.9) 10^3/u L Eos # (Auto) 0.0 (0.0-0.8) 10^3/u L Baso # (Auto) 0.0 (0.0-0.1) 10^3/u L Nucleated RBC % (a uto) 0 % Nucleated RBCs # 0.0 /100WBC PT 13.10 (10.5-13.3) SECO NDS INR 0.96 (0.8-1.2) Specimen Type Sample Site ABG pH (7.35-7.45) ABG pCO2 (35-45) mmHg ABG pO2 (80.0-100.0) mmH g ABG HCO3 (22-26) mmol/L ABG O2 Saturation ABG Base Excess (-2.0-2.0) mmol/ L Reynaldo Test A-a O2 Gradient (5-10) mmHg Hematocrit (42-52) % Hgb O2 Saturation (95-100) % Carboxyhemoglobin (0.4-20.1) %THgb Methemoglobin (0.4-1.5) % Total Hemoglobin (14-18) g/dL Ionized Calcium (1.1-1.4) mmol/L O2 Delivery Device O2 Liters/Min % Plaster Caster ID Sodium 142 (136-145) mmol/L Potassium 3.6 (3.5-5.1) mmol/L Chloride 101 (98-107) mmol/L Carbon Dioxide 24 (22-29) mmol/L Anion Gap 20.6 H (5-19) BUN 14 (8-23) mg/dL Creatinine 0.9 (0.7-1.2) mg/dL GFR Calculation 85.5 L (90-130) mL/min Glucose 188 H (65-115) mg/dL Calculated Osmolal ity 295 (285-295) mOsm/k g Lactic Acid (0.5-2.2) mmol/L Calcium 9.0 (8.5-10.5) mg/dL Magnesium 1.9 (1.7-2.3) mg/dL Total Bilirubin 0.2 (0.15-1.2) mg/dL AST 31 (0-40) U/L ALT 29 (0-41) U/L Alkaline Phosphata se 114 (40-130) IU/L Ammonia (16-60) umol/L Troponin T Baselin e (0-15) ng/mL Troponin T 120 Min [place] (0-15) ng/mL Delta Troponin T (0-10) ABS# Total Protein 7.1 (6.6-8.7) g/dL Albumin 4.3 (3.5-5.2) g/dL Globulin 2.8 (1.3-4.6) g/dL Urine Color (Yellow) Urine Appearance (CLEAR) Urine pH (5-7) Ur Specific Gravit y (1.005-1.030) Urine Protein (Negative) Urine Glucose (UA) (Normal) Urine Ketones (Negative) Urine Blood (Negative) Urine Nitrate (Negative) Urine Bilirubin (NEGATIVE) Urine Urobilinogen (Negative) mg/dL Ur Leukocyte Lucrecia ase (Negative) Urine RBC (0-2) /hpf Urine WBC (0-5) /hpf Ur Squamous Epith Cells (0-5) Urine Bacteria (NONE) Coarse Granular Ca sts /lpf Urine Opiates Scre en (Negative) ng/mL Ur Barbiturates Sc reen (Negative) ng/mL Ur Phencyclidine S crn (Negative) ng/mL Ur Amphetamines Sc reen (Negative) ng/mL U Benzodiazepines Scrn (Negative) ng/mL Urine Cocaine Scre en (Negative) ng/mL U Marijuana (THC) Screen (Negative) ng/mL 02/15/20 02/15/20 02/15/20 Range/Units 02:05 02:05 02:10 WBC (4.0-10.0) 10^3/ uL RBC (4.1-5.3) 10^6/u L Hgb (11.7-16.6) g/dL Hct (42.0-52.0) % MCV (80-94) fL MCH (28.0-34.0) pg MCHC (30.0-36.0) g/dL RDW (12.1-15.1) % Plt Count (130-400) 10^3/c mm MPV (7.4-10.4) fL Neut % (Auto) % Lymph % (Auto) % [place] % (Auto) % Eos % (Auto) % Baso % (Auto) % Neut # (Auto) (1.8-7.7) 10^3/u L Lymph # (Auto) (0.8-4.8) 10^3/u L [place] # (Auto) (0.2-0.9) 10^3/u L Eos # (Auto) (0.0-0.8) 10^3/u L Baso # (Auto) (0.0-0.1) 10^3/u L Nucleated RBC % (a uto) % Nucleated RBCs # /100WBC PT (10.5-13.3) SECO NDS INR (0.8-1.2) Specimen Type Arterial Sample Site Radial, left ABG pH 7.46 H (7.35-7.45) ABG pCO2 37.1 (35-45) mmHg ABG pO2 77.9 L (80.0-100.0) mmH g ABG HCO3 26.1 H (22-26) mmol/L ABG O2 Saturation 96.7 ABG Base Excess 2.3 H (-2.0-2.0) mmol/ L Reynaldo Test N/a A-a O2 Gradient 23.8 H (5-10) mmHg Hematocrit 37.8 L (42-52) % Hgb O2 Saturation 95.2 (95-100) % Carboxyhemoglobin 0.8 (0.4-20.1) %THgb Methemoglobin 0.8 (0.4-1.5) % Total Hemoglobin 12.3 L (14-18) g/dL Ionized Calcium 1.2 (1.1-1.4) mmol/L O2 Delivery Device Nc O2 Liters/Min 3.0 % Plaster Caster ID [email or web address] Sodium 142.0 (136-145) mmol/L Potassium 3.4 L (3.5-5.1) mmol/L Chloride (98-107) mmol/L Carbon Dioxide (22-29) mmol/L Anion Gap (5-19) BUN (8-23) mg/dL Creatinine (0.7-1.2) mg/dL GFR Calculation (90-130) mL/min Glucose 168.0 H (65-115) mg/dL Calculated Osmolal ity (285-295) mOsm/k g Lactic Acid 4.1 H* (0.5-2.2) mmol/L Calcium (8.5-10.5) mg/dL Magnesium (1.7-2.3) mg/dL Total Bilirubin (0.15-1.2) mg/dL AST (0-40) U/L ALT (0-41) U/L Alkaline Phosphata se (40-130) IU/L Ammonia (16-60) umol/L Troponin T Baselin e 862 H* (0-15) ng/mL Troponin T 120 Min [place] (0-15) ng/mL Delta Troponin T (0-10) ABS# Total Protein (6.6-8.7) g/dL Albumin (3.5-5.2) g/dL Globulin (1.3-4.6) g/dL Urine Color (Yellow) Urine Appearance (CLEAR) Urine pH (5-7) Ur Specific Gravit y (1.005-1.030) Urine Protein (Negative) Urine Glucose (UA) (Normal) Urine Ketones (Negative) Urine Blood (Negative) Urine Nitrate (Negative) Urine Bilirubin (NEGATIVE) Urine Urobilinogen (Negative) mg/dL Ur Leukocyte Lucrecia ase (Negative) Urine RBC (0-2) /hpf Urine WBC (0-5) /hpf Ur Squamous Epith Cells (0-5) Urine Bacteria (NONE) Coarse Granular Ca sts /lpf Urine Opiates Scre en (Negative) ng/mL Ur Barbiturates Sc reen (Negative) ng/mL Ur Phencyclidine S crn (Negative) ng/mL Ur Amphetamines Sc reen (Negative) ng/mL U Benzodiazepines Scrn (Negative) ng/mL Urine Cocaine Scre en (Negative) ng/mL U Marijuana (THC) Screen (Negative) ng/mL 02/15/20 02/15/20 02/15/20 Range/Units 02:21 02:21 03:10 WBC (4.0-10.0) 10^3/ uL RBC (4.1-5.3) 10^6/u L Hgb (11.7-16.6) g/dL Hct (42.0-52.0) % MCV (80-94) fL MCH (28.0-34.0) pg MCHC (30.0-36.0) g/dL RDW (12.1-15.1) % Plt Count (130-400) 10^3/c mm MPV (7.4-10.4) fL Neut % (Auto) % Lymph % (Auto) % [place] % (Auto) % Eos % (Auto) % Baso % (Auto) % Neut # (Auto) (1.8-7.7) 10^3/u L Lymph # (Auto) (0.8-4.8) 10^3/u L [place] # (Auto) (0.2-0.9) 10^3/u L Eos # (Auto) (0.0-0.8) 10^3/u L Baso # (Auto) (0.0-0.1) 10^3/u L Nucleated RBC % (a uto) % Nucleated RBCs # /100WBC PT (10.5-13.3) SECO NDS INR (0.8-1.2) Specimen Type Sample Site ABG pH (7.35-7.45) ABG pCO2 (35-45) mmHg ABG pO2 (80.0-100.0) mmH g ABG HCO3 (22-26) mmol/L ABG O2 Saturation ABG Base Excess (-2.0-2.0) mmol/ L Reynaldo Test A-a O2 Gradient (5-10) mmHg Hematocrit (42-52) % Hgb O2 Saturation (95-100) % Carboxyhemoglobin (0.4-20.1) %THgb Methemoglobin (0.4-1.5) % Total Hemoglobin (14-18) g/dL Ionized Calcium (1.1-1.4) mmol/L O2 Delivery Device O2 Liters/Min % Plaster Caster ID Sodium (136-145) mmol/L Potassium (3.5-5.1) mmol/L Chloride (98-107) mmol/L Carbon Dioxide (22-29) mmol/L Anion Gap (5-19) BUN (8-23) mg/dL Creatinine (0.7-1.2) mg/dL GFR Calculation (90-130) mL/min Glucose (65-115) mg/dL Calculated Osmolal ity (285-295) mOsm/k g Lactic Acid (0.5-2.2) mmol/L Calcium (8.5-10.5) mg/dL Magnesium (1.7-2.3) mg/dL Total Bilirubin (0.15-1.2) mg/dL AST (0-40) U/L ALT (0-41) U/L Alkaline Phosphata se (40-130) IU/L Ammonia 18 (16-60) umol/L Troponin T Baselin e (0-15) ng/mL Troponin T 120 Min [place] (0-15) ng/mL Delta Troponin T (0-10) ABS# Total Protein (6.6-8.7) g/dL Albumin (3.5-5.2) g/dL Globulin (1.3-4.6) g/dL Urine Color Yellow (Yellow) Urine Appearance Cloudy (CLEAR) Urine pH 5 (5-7) Ur Specific Gravit y 1.025 (1.005-1.030) Urine Protein 2+ H (Negative) Urine Glucose (UA) Trace H (Normal) Urine Ketones Negative (Negative) Urine Blood 3+ H (Negative) Urine Nitrate Negative (Negative) Urine Bilirubin Neg (NEGATIVE) Urine Urobilinogen Norm (Negative) mg/dL Ur Leukocyte Lucrecia ase 2+ H (Negative) Urine RBC 15-25 H (0-2) /hpf Urine WBC Too numerous to c nt H (0-5) /hpf Ur Squamous Epith Cells 0-4 H (0-5) Urine Bacteria 1+ H (NONE) Coarse Granular Ca sts 0-4 H /lpf Urine Opiates Scre en Negative (Negative) ng/mL Ur Barbiturates Sc reen Positive H (Negative) ng/mL Ur Phencyclidine S crn Negative (Negative) ng/mL Ur Amphetamines Sc reen Negative (Negative) ng/mL U Benzodiazepines Scrn Negative (Negative) ng/mL Urine Cocaine Scre en Negative (Negative) ng/mL U Marijuana (THC) Screen Negative (Negative) ng/mL 02/15/20 Range/Units 03:50 WBC (4.0-10.0) 10^3/ uL RBC (4.1-5.3) 10^6/u L Hgb (11.7-16.6) g/dL Hct (42.0-52.0) % MCV (80-94) fL MCH (28.0-34.0) pg MCHC (30.0-36.0) g/dL RDW (12.1-15.1) % Plt Count (130-400) 10^3/c mm MPV (7.4-10.4) fL Neut % (Auto) % Lymph % (Auto) % [place] % (Auto) % Eos % (Auto) % Baso % (Auto) % Neut # (Auto) (1.8-7.7) 10^3/u L Lymph # (Auto) (0.8-4.8) 10^3/u L [place] # (Auto) (0.2-0.9) 10^3/u L Eos # (Auto) (0.0-0.8) 10^3/u L Baso # (Auto) (0.0-0.1) 10^3/u L Nucleated RBC % (a uto) % Nucleated RBCs # /100WBC PT (10.5-13.3) SECO NDS INR (0.8-1.2) Specimen Type Sample Site ABG pH (7.35-7.45) ABG pCO2 (35-45) mmHg ABG pO2 (80.0-100.0) mmH g ABG HCO3 (22-26) mmol/L ABG O2 Saturation ABG Base Excess (-2.0-2.0) mmol/ L Reynaldo Test A-a O2 Gradient (5-10) mmHg Hematocrit (42-52) % Hgb O2 Saturation (95-100) % Carboxyhemoglobin (0.4-20.1) %THgb Methemoglobin (0.4-1.5) % Total Hemoglobin (14-18) g/dL Ionized Calcium (1.1-1.4) mmol/L O2 Delivery Device O2 Liters/Min % Plaster Caster ID Sodium (136-145) mmol/L Potassium (3.5-5.1) mmol/L Chloride (98-107) mmol/L Carbon Dioxide (22-29) mmol/L Anion Gap (5-19) BUN (8-23) mg/dL Creatinine (0.7-1.2) mg/dL GFR Calculation (90-130) mL/min Glucose (65-115) mg/dL Calculated Osmolal ity (285-295) mOsm/k g Lactic Acid (0.5-2.2) mmol/L Calcium (8.5-10.5) mg/dL Magnesium (1.7-2.3) mg/dL Total Bilirubin (0.15-1.2) mg/dL AST (0-40) U/L ALT (0-41) U/L Alkaline Phosphata se (40-130) IU/L Ammonia (16-60) umol/L Troponin T Baselin e (0-15) ng/mL Troponin T 120 Min [place] 753.6 H (0-15) ng/mL Delta Troponin T -108.4 L (0-10) ABS# Total Protein (6.6-8.7) g/dL Albumin (3.5-5.2) g/dL Globulin (1.3-4.6) g/dL Urine Color (Yellow) Urine Appearance (CLEAR) Urine pH (5-7) Ur Specific Gravit y (1.005-1.030) Urine Protein (Negative) Urine Glucose (UA) (Normal) Urine Ketones (Negative) Urine Blood (Negative) Urine Nitrate (Negative) Urine Bilirubin (NEGATIVE) Urine Urobilinogen (Negative) mg/dL Ur Leukocyte Lucrecia ase (Negative) Urine RBC (0-2) /hpf Urine WBC (0-5) /hpf Ur Squamous Epith Cells (0-5) Urine Bacteria (NONE) Coarse Granular Ca sts /lpf Urine Opiates Scre en (Negative) ng/mL Ur Barbiturates Sc reen (Negative) ng/mL Ur Phencyclidine S crn (Negative) ng/mL Ur Amphetamines Sc reen (Negative) ng/mL U Benzodiazepines Scrn (Negative) ng/mL Urine Cocaine Scre en (Negative) ng/mL U Marijuana (THC) Screen (Negative) ng/mL Imaging Data^: CXR: My impression: No acute cardiopulmonary disease. Chronically elevated right hemidiaphragm with bowel present underneath the diaphragm. EKG Data^: EKG 1: Attestation: I personally reviewed and interpreted this EKG as follows: EKG Interpretation Date: 02/15/20 EKG interpretation time: 02:30 Interpretation: Sinus tachycardia with a ventricular rate of 110 beats a minute, no blocks, normal intervals, nonspecific ST and T wave changes. EKG 2: Attestation: I personally reviewed and interpreted this EKG as follows: EKG Interpretation Date: 02/15/20 EKG interpretation time: 04:00 Interpretation: Normal sinus rhythm at 87 beats a minute, nonspecific ST-T wave changes. Discharge Plan Discharge Patient Disposition: Admitted As Inpatient Clinical Impression: Acute UTI, Non-STEMI (non-ST elevated myocardial infarction) Sepsis Qualifiers: Sepsis type: sepsis due to unspecified organism Sepsis acute organ dysfunction status: unspecified Qualified Code(s): A41.9 - Sepsis, unspecified organism Condition: Stable Referrals: Lucian Torres MD [Primary Care Provider] - Coding Level of Care Code ED [facility] Porter for Lizette Graham
[2020-02-15 02:43] LABS: Bilirubin Urine Neg (NEGATIVE); Blood Urine 3+ (Negative); Glucose Urine UA Trace (Normal); Ketones Urine Negative (Negative); Leukocyte Esterase Urine 2+ (Negative); Nitrate Urine Negative (Negative); Protein Urine 2+ (Negative); Specific Gravity, Urine 1.025 (1.005-1.030); Urine Appearance Cloudy (CLEAR); Urine Color Yellow (Yellow); Urobilinogen Urine Norm (Negative); pH Urine 5 (5-7)
[2020-02-15 02:44] LABS: RBC Urine 15-25 /hpf (0-2)
[2020-02-15 02:45] LABS: Bacteria Urine 1+; Squamous Epithelial Cell Urine 0-4 (0-5); WBC Urine TOO NUMEROUS TO CNT /hpf (0-5)
--- NOTE | 2020-02-15 02:45 | CTR_ITS ---
PROCEDURE INFORMATION: Exam: CT Abdomen And Pelvis With Contrast Exam date and time: 02/15/2020 3:16 AM Age: 64 years old Clinical indication: Abdominal pain; Generalized TECHNIQUE: Imaging protocol: Computed tomography of the abdomen and pelvis with intravenous contrast. Radiation optimization: All CT scans at this facility use at least one of these dose optimization techniques: automated exposure control; mA and/or kV adjustment per patient size (includes targeted exams where dose is matched to clinical indication); or iterative reconstruction. Contrast material: OMNI 300; Contrast volume: 95 ml; Contrast route: IV; COMPARISON: CT abdomen pelvis w con* [id number] 01/25/2020 1:44 PM RADIATION DOSE METRICS: Total DLP: 1966.48 mGy-cm FINDINGS: Tubes, catheters and devices: TILE SHADER shunt tubing is seen within the abdomen. Lungs: There are patchy and strandy opacities at superimposed over the right hemidiaphragm compatible with atelectasis versus pneumonia. Some hazy opacities are seen in the left upper lobe. There is mild prominence of the pulmonary vasculature. These findings could represent pulmonary edema. Left upper lobe pneumonitis cannot be entirely excluded. Diaphragm: There is elevation of the right hemidiaphragm. Liver: Punctate calcifications are seen within the liver compatible with calcified granulomas. Gallbladder and bile ducts: Normal. No calcified stones. No ductal dilation. Pancreas: Normal. No ductal dilation. Spleen: There are multiple calcifications seen within the spleen compatible with calcified granulomas. Adrenals: Normal. No mass. Kidneys and ureters: Strandy opacities are present in the perinephric fascia bilaterally compatible with chronic scarring. Inflammatory changes cannot be entirely excluded. There is mild prominence of the renal pelvis sees and ureters bilaterally without evidence of obstructing ureteral calculi or masses. 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 Appendix: No evidence of appendicitis. Intraperitoneal space: Trace amount of fluid is seen within the pelvis. Vasculature: See Lungs finding. Lymph nodes: Unremarkable. No enlarged lymph nodes. Bladder: There is prominent bladder wall thickening seen although the bladder is nondistended. Ness catheter is seen. Gas densities are seen within the bladder likely secondary to instrumentation. However, cystitis cannot be entirely excluded in the appropriate clinical setting. Reproductive: Unremarkable as visualized. Bones/joints: Loss of disc height and vacuum disc phenomenon is seen L4-S1. Soft tissues: Hazy opacities are seen in the anterior abdominal wall soft tissues the right. CT/CT abdomen pelvis w con* [id number] IMPRESSION: 1. 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 2. Calcified hepatic and splenic granulomas 3. Strandy opacities are seen in the perinephric fascia bilaterally likely representing chronic scarring. However, inflammatory changes and pyelonephritis cannot be entirely excluded. There is some prominence of the renal pelvis sees and ureters seen bilaterally. 4. A Ness catheter is present. Some air is introduced into the bladder as result. Additionally, there is marked bladder wall thickening present, findings that may represent cystitis although bladder is incompletely distended. 5. There is a small amount free fluid seen within the pelvis. 6. Strandy and patchy opacities present in the right lung base likely represents atelectasis although infiltrates and pneumonia cannot be entirely excluded. 7. Seven. Mildly prominent pulmonary vasculature and some haziness seen in the left upper lobe, findings that could represent pulmonary edema. Radiation Dose CTDIVOL = (mGy): DLP = 1966.48 (mGy-cm)
--- NOTE | 2020-02-15 02:45 | CTR_ITS ---
PROCEDURE INFORMATION: Exam: CT Head Without Contrast Exam date and time: 02/15/2020 3:16 AM Age: 64 years old Clinical indication: Altered mental status/memory loss; Confusion or disorientation; Prior surgery; Surgery date: 6+ months; Surgery type: Administration Specialist shunt; Additional info: Mendoza/ams TECHNIQUE: Imaging protocol: Computed tomography of the head without contrast. Radiation optimization: All CT scans at this facility use at least one of these dose optimization techniques: automated exposure control; mA and/or kV adjustment per patient size (includes targeted exams where dose is matched to clinical indication); or iterative reconstruction. COMPARISON: CT head wo con* [id number] 01/30/2020 8:20 AM RADIATION DOSE METRICS: Total DLP: 882 mGy-cm FINDINGS: Tubes, catheters and devices: Stable position of bilateral CRUSHING MACHINE OPERATOR shunt catheters. Brain: No acute intracranial hemorrhage or mass effect. There is mild decreased attenuation in the periventricular white matter, likely from microvascular disease. 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 No definite acute infarct by CT. MRI could be more sensitive/specific for detection, as clinically directed. Ventricles: Ventricle size is unchanged/decompressed, no hydrocephalus. Bones/joints: No definite acute skull fracture. Evidence for prior craniotomies. Sinuses: 5 mm retention cyst or polyp in the right maxillary sinus. Included paranasal sinuses otherwise appear essentially clear. Mastoid air cells: No significant acute finding. Soft tissues: Unremarkable. CT/CT head wo con* [id number] IMPRESSION: 1. No acute intracranial hemorrhage or mass effect. 2. Changes of microvascular disease, and old infarcts, details above. 3. No definite acute infarct by CT, see above. 4. Stable CRUSHING MACHINE OPERATOR shunt tubes, no hydrocephalus. 5. Other findings discussed above. Radiation Dose CTDIVOL = (mGy): DLP = 882 (mGy-cm)
[2020-02-15 02:46] LABS: Add Urine Culture? Yes; Coarse Granular Casts Urine 0-4 /lpf
[2020-02-15] MEDS: piperacillin-tazobactam 3.375 GM in sodium chloride 0.9% (plus) 50 ML IV ×3 (03:02→18:49)
--- NOTE | 2020-02-15 03:50 | ECG_ITS ---
Measurements Intervals [place] Rate: 87 P: 52 WA: 153 QRS: 62 QRSD: 94 T: 89 QT: 399 QTc: 483 SINUS RHYTHM LOW QRS VOLTAGE IN EXTREMITY LEADS [QRS DEFLECTION < 0.5 mV IN LIMB LEADS] POSSIBLE RIGHT VENTRICULAR CONDUCTION DELAY [RSR (QR) IN V1/V2] Compared to ECG 01/25/2020 13:19:15 Sinus tachycardia no longer present T-wave abnormality no longer present Possible ischemia no longer present Electronically Signed On 02-15-2020 20:20:00 CDT by Kristal Lundberg M.D. [email or web address]
[2020-02-15 03:54] LABS: Reflex Lactate Order REFLEX LACTIC ORDERD
[2020-02-15] MEDS: aspirin 325 mg Tablet PO (04:06)
[2020-02-15 04:30] LABS: Troponin 5 2HR 753.6 ng/mL (0-15)
--- NOTE | 2020-02-15 05:29 | P.HP_ITS ---
Providers/Chief Complaint Primary Care Provider: Lucian Torres MD Chief Complaint: respt distress History of Present Illness Sammy Anderson is a 64 year old male with past medical history of dementia, CVA, hydrocephalus, SOCIAL MEDIA MARKETING ANALYST shunt, UTI, urinary retention, BPH, GERD, dyslipidemia, CHF, epilepsy who was brought from [facility] facility due to hypotension, respiratory distress and confusion. It is unclear when the patient started developing the symptoms. On presentation the patient was found to have severe hypotension. He was started on IV fluids and Levophed. Currently the blood pressure has stabilized. His breathing improved as well with that. During his recent hospitalization for similar problem the patient was found to have urinary retention. He was discharged with the Ness catheter. His [facility] facility and the catheter was removed. Today again he is found to have retention, although the amount of urine in the bladder was not very large. He is found to have urinary tract infection. Based on previous sensitivities of Proteus and E. coli he is started on Zosyn. During my evaluation in the emergency room the patient is sleeping, but arousable. His responses are limited, probably due to baseline dementia. However he is able to answer to simple questions and follow my instructions. Currently he denies any active complaints. He denies any pain. He denies any chest pain, shortness of breath, cough, palpitations. He denies nausea or vomiting. He denies abdominal pain. He denies diarrhea. Review of Systems General: Reports: 10 or more systems reviewed and unremarkable except in HPI and below Medications/Allergies Home Medications Medication Instructions Recorded Confirmed Last Taken Type ferrous sulfate 325 mg (65 mg 325 mg PO DAILY 01/13/20 02/09/20 Unknown History iron) tablet furosemide 80 mg tablet 80 mg PO DAILY 01/13/20 02/09/20 Unknown History omeprazole 20 mg capsule,delayed 20 mg PO DAILY 01/13/20 02/09/20 Unknown History release phenytoin sodium extended 100 mg 100 mg PO TID cap 01/13/20 02/09/20 Unknown History capsule valproic acid (as sodium salt) 250 250 mg PO BID 01/13/20 02/09/20 Unknown History mg/5 mL oral solution Enema 118 ml DC DAILY PRN 01/25/20 02/09/20 Unknown History Flomax 0.4 mg PO DAILY 01/25/20 02/09/20 Unknown History Milk of Magnesia 400 mg PO DAILY PRN 01/25/20 02/09/20 Unknown History Miralax 17 g PO DAILY PRN 01/25/20 02/09/20 Unknown History Senna-S 1 tab-cap PO BID PRN 01/25/20 01/25/20 Unknown History TwoCal HN 90 ea PO TID 01/25/20 02/09/20 Unknown History acetaminophen 325 mg PO Q4H PRN 01/25/20 02/09/20 Unknown History albuterol sulfate 2.5 mg INHALATION TID PRN 01/25/20 02/09/20 Unknown History bisacodyl 10 mg DC DAILY PRN 01/25/20 02/09/20 Unknown History potassium chloride 20 meq PO DAILY 01/25/20 02/09/20 Unknown History aspirin 81 mg PO DAILY #30 tab 01/30/20 02/09/20 Unknown Rx atorvastatin 80 mg PO DAILY #0 tab 01/30/20 01/25/20 Unknown Rx cefdinir 300 mg PO BID #14 cap 01/30/20 02/09/20 Unknown Rx clopidogrel 75 mg PO DAILY #30 tab 01/30/20 02/09/20 Unknown Rx Allergies Allergy/AdvReac Type Severity Reaction Status Date / Time No Known Allergies Allergy Unverified 01/25/20 12:42 PFSH Acute PFSH: Medical History Anemia Congestive heart failure Coronary artery disease Dementia Diabetes mellitus Epilepsy GERD (gastroesophageal reflux disease) Hydrocephalus Hyperlipidemia Peripheral vascular disease Schizophrenia TIA (transient ischemic attack) Urinary retention Surgical History SOCIAL MEDIA MARKETING ANALYST (ventriculoperitoneal) shunt status Family History Unknown No problems noted. Social History Smoking and tobacco status: unknown if ever smoked Alcohol intake: never Housing: Intermediate Marital status: Single Current occupational status: retired History of recent travel: No Current gender identity: Male Vitals/I&O/Wt Last Vital Signs Temp 99.3 F 02/15/20 01:49 Pulse 86 02/15/20 04:00 Resp 25 H 02/15/20 04:00 BP 81/57 02/15/20 04:00 Pulse Ox 99 02/15/20 04:00 02/14/20 02/14/20 02/15/20 14:59 22:59 06:59 Intake Total 3059.147 / 3059.147 Balance 3059.147 / 3059.147 Weight last 48 hrs Weight 90.718 kg Physical Exam Narrative: EXAM NARRATIVE: Currently the patient is sleeping but arousable. No acute distress. Responses are delayed but adequate. Speech is limited. Skin is warm and dry. Dry mucous membranes Eyes Lulu, extraocular muscles intact. Neck is supple. No JVD Lungs decreased breath sounds bibasilarly more on the right. No crackles. No wheezes. No respiratory distress Heart S1, S2, regular Abdomen soft, distended, nontender, bowel sounds are present. No guarding or rebound. Extremities bilateral pedal edema is present. No cyanosis or calf tenderness bilaterally. Normal capillary refill. Urinary Catheter Management^: Ness: Cath Placed During This Visit: yes Reason for Continuing Indwelling Catheter: Accurate Measurement of Urinary Output in Critically Ill Patients Urinary Catheter Date of Insertion: 02/15/20 Urinary Catheter Time of Insertion: Data : 02/15/20 02:05 02/15/20 02:05 Other Labs: Laboratory Results WBC 14.8 10^3/uL (4.0-10.0) H 02/15/20 02:05 RBC 3.95 10^6/uL (4.1-5.3) L 02/15/20 02:05 Hgb 11.8 g/dL (11.7-16.6) 02/15/20 02:05 Hct 36.6 % (42.0-52.0) L 02/15/20 02:05 MCV 92.7 fL (80-94) 02/15/20 02:05 MCH 29.9 pg (28.0-34.0) 02/15/20 02:05 MCHC 32.2 g/dL (30.0-36.0) 02/15/20 02:05 RDW 16.5 % (12.1-15.1) H 02/15/20 02:05 Plt Count 152 10^3/cmm (130-400) 02/15/20 02:05 MPV 9.5 fL (7.4-10.4) 02/15/20 02:05 Neut % (Auto) 79.9 % 02/15/20 02:05 Lymph % (Auto) 6.2 % 02/15/20 02:05 [place] % (Auto) 13.2 % 02/15/20 02:05 Eos % (Auto) 0.1 % 02/15/20 02:05 Baso % (Auto) 0.1 % 02/15/20 02:05 Neut # (Auto) 11.8 10^3/uL (1.8-7.7) H 02/15/20 02:05 Lymph # (Auto) 0.9 10^3/uL (0.8-4.8) 02/15/20 02:05 [place] # (Auto) 2.0 10^3/uL (0.2-0.9) H 02/15/20 02:05 Eos # (Auto) 0.0 10^3/uL (0.0-0.8) 02/15/20 02:05 Baso # (Auto) 0.0 10^3/uL (0.0-0.1) 02/15/20 02:05 Nucleated RBC % (auto) 0 % 02/15/20 02:05 Nucleated RBCs # 0.0 /100WBC 02/15/20 02:05 PT 13.10 SECONDS (10.5-13.3) 02/15/20 02:05 INR 0.96 (0.8-1.2) 02/15/20 02:05 Specimen Type Arterial 02/15/20 02:10 Sample Site Radial, left 02/15/20 02:10 ABG pH 7.46 (7.35-7.45) H 02/15/20 02:10 ABG pCO2 37.1 mmHg (35-45) 02/15/20 02:10 ABG pO2 77.9 mmHg (80.0-100.0) L 02/15/20 02:10 ABG HCO3 26.1 mmol/L (22-26) H 02/15/20 02:10 ABG O2 Saturation 96.7 02/15/20 02:10 ABG Base Excess 2.3 mmol/L (-2.0-2.0) H 02/15/20 02:10 Reynaldo Test N/a 02/15/20 02:10 A-a O2 Gradient 23.8 mmHg (5-10) H 02/15/20 02:10 Hematocrit 37.8 % (42-52) L 02/15/20 02:10 Hgb O2 Saturation 95.2 % (95-100) 02/15/20 02:10 Carboxyhemoglobin 0.8 %THgb (0.4-20.1) 02/15/20 02:10 Methemoglobin 0.8 % (0.4-1.5) 02/15/20 02:10 Total Hemoglobin 12.3 g/dL (14-18) L 02/15/20 02:10 Sodium 142.0 mmol/L (131-143) 02/15/20 02:10 Potassium 3.4 mmol/L (3.5-5.0) L 02/15/20 02:10 Glucose 168.0 mg/dL (70-115) H 02/15/20 02:10 Ionized Calcium 1.2 mmol/L (1.1-1.4) 02/15/20 02:10 O2 Delivery Device Nc 02/15/20 02:10 O2 Liters/Min 3.0 % 02/15/20 02:10 Culinary Manager ID [email or web address] 02/15/20 02:10 Sodium 142 mmol/L (136-145) 02/15/20 02:05 Potassium 3.6 mmol/L (3.5-5.1) 02/15/20 02:05 Chloride 101 mmol/L (98-107) 02/15/20 02:05 Carbon Dioxide 24 mmol/L (22-29) 02/15/20 02:05 Anion Gap 20.6 (5-19) H 02/15/20 02:05 BUN 14 mg/dL (8-23) 02/15/20 02:05 Creatinine 0.9 mg/dL (0.7-1.2) 02/15/20 02:05 GFR Calculation 85.5 mL/min (90-130) L 02/15/20 02:05 Glucose 188 mg/dL (65-115) H 02/15/20 02:05 Calculated Osmolality 295 mOsm/kg (285-295) 02/15/20 02:05 Lactic Acid 4.1 mmol/L (0.5-2.2) H* 02/15/20 02:05 Calcium 9.0 mg/dL (8.5-10.5) 02/15/20 02:05 Magnesium 1.9 mg/dL (1.7-2.3) 02/15/20 02:05 Total Bilirubin 0.2 mg/dL (0.15-1.2) 02/15/20 02:05 AST 31 U/L (0-40) 02/15/20 02:05 ALT 29 U/L (0-41) 02/15/20 02:05 Alkaline Phosphatase 114 IU/L (40-130) 02/15/20 02:05 Ammonia 18 umol/L (16-60) 02/15/20 03:10 Troponin T Baseline 862 ng/mL (0-15) H* 02/15/20 02:05 Troponin T 120 Minute 753.6 ng/mL (0-15) H 02/15/20 03:50 Delta Troponin T -108.4 ABS# (0-10) L 02/15/20 03:50 Total Protein 7.1 g/dL (6.6-8.7) 02/15/20 02:05 Albumin 4.3 g/dL (3.5-5.2) 02/15/20 02:05 Globulin 2.8 g/dL (1.3-4.6) 02/15/20 02:05 Urine Color Yellow (Yellow) 02/15/20 02:21 Urine Appearance Cloudy (CLEAR) 02/15/20 02:21 Urine pH 5 (5-7) 02/15/20 02:21 Ur Specific [place] 1.025 (1.005-1.030) 02/15/20 02:21 Urine Protein 2+ (Negative) H 02/15/20 02:21 Urine Glucose (UA) Trace (Normal) H 02/15/20 02:21 Urine Ketones Negative (Negative) 02/15/20 02:21 Urine Blood 3+ (Negative) H 02/15/20 02:21 Urine Nitrate Negative (Negative) 02/15/20 02:21 Urine Bilirubin Neg (NEGATIVE) 02/15/20 02:21 Urine Urobilinogen Norm mg/dL (Negative) 02/15/20 02:21 Ur Leukocyte Esterase 2+ (Negative) H 02/15/20 02:21 Urine RBC 15-25 /hpf (0-2) H 02/15/20 02:21 Urine WBC Too numerous to cnt /hpf (0-5) H 02/15/20 02:21 Ur Squamous Epith Cells 0-4 (0-5) H 02/15/20 02:21 Urine Bacteria 1+ (NONE) H 02/15/20 02:21 Coarse Granular Casts 0-4 /lpf H 02/15/20 02:21 Urine Opiates Screen Negative ng/mL (Negative) 02/15/20 02:21 Ur Barbiturates Screen Positive ng/mL (Negative) H 02/15/20 02:21 Ur Phencyclidine Scrn Negative ng/mL (Negative) 02/15/20 02:21 Ur Amphetamines Screen Negative ng/mL (Negative) 02/15/20 02:21 U Benzodiazepines Scrn Negative ng/mL (Negative) 02/15/20 02:21 Urine Cocaine Screen Negative ng/mL (Negative) 02/15/20 02:21 U Marijuana (THC) Screen Negative ng/mL (Negative) 02/15/20 02:21 Chest x-ray. Elevated right hemidiaphragm. No obvious infiltrates. Please review official radiology report when it is available. EKG sinus tachycardia. Nonspecific T wave changes. No evidence of acute ischemia. Micro: Microbiology 02/15/20 02:55 Blood Culture - Preliminary Blood SPECIMEN COLLECTED 02/15/20 02:05 Blood Culture - Preliminary Blood SPECIMEN COLLECTED A&P Additional A&P Information 64-year-old male with above listed medical problems including recent hospitalization for similar problem who is presenting today with severe sepsis with septic shock secondary to urinary tract infection. The patient has urinary retention. Currently the blood pressure is stabilized with Levophed. The pressure is going through peripheral line. Has associated abnormal troponin which I suspect is secondary to demand ischemia. He does not have any chest pain currently. EKG does not show acute ischemic changes. His hypoxia improved with supplemental oxygen. Severe sepsis with septic shock secondary to urinary tract infection. Started on Zosyn per previous culture results. Will wait for the new culture results. Continue IV fluids. Please reassess hydration status today and adjust the fluid rate. The patient has history of CHF. Please try to avoid fluid overload. We will try to wean off Levophed. Urinary retention. Ness catheter is inserted. Flomax is on hold due to hypotension. Abnormal troponin without chest pain or acute ischemic changes on EKG. Probably demand ischemia secondary to shock and hypoxia. We will continue home dual a ntiplatelet therapy, Lipitor. We will continue monitoring him on telemetry. Will wait for the third troponin measurement. Mild acute hypoxia probably secondary to sepsis. Continue supplemental oxygen. Acute metabolic encephalopathy secondary to infection and urinary retention. Baseline is unknown but probably is not normal due to his past medical history. Continue close monitoring. N.p.o. for now. Will order speech evaluation. History of seizure disorder. Continue home medications. Seizure precautions. DVT prophylaxis. Lovenox. History of GERD. He will receive famotidine IV. CODE STATUS. Dr. Otero, ER physician spoke with patient's guardian who wanted limited resuscitation status. He is okay with short-term ventilatory support and intubation but was against chest compressions and defibrillation. Attestations Medical Necessity Statement*: Critical care time spent on this encounter is 60 minutes. Based on my assessment of patient's current condition and diagnosis the patient will require more than 2 midnights in the hospital. Coding Level of Care Code Acute Wash House Worker for Lizette Graham
[2020-02-15] MEDS: sodium chlor 0.9% + KCl 20 mEq 20 MEQ/1,000 ML BAG 150 MEQ IV ×3 (06:00→18:49)
[2020-02-15] MEDS: enoxaparin 40 mg/0.4 mL Syringe SUBCUT (06:01)
[2020-02-15] MEDS: famotidine 20 mg/2 mL INJ IVP ×2 (06:02→17:15)
[2020-02-15 07:19] LABS: Lactic Acid level (Lactate) 2.2 mmol/L (0.5-2.2)
--- NOTE | 2020-02-15 07:50 | ECG_ITS ---
Measurements Intervals [place] Rate: 76 P: 54 WA: 153 QRS: 60 QRSD: 89 T: 90 QT: 421 QTc: 476 SINUS RHYTHM Compared to ECG 01/25/2020 13:19:15 Sinus tachycardia no longer present T-wave abnormality no longer present Possible ischemia no longer present Electronically Signed On 02-15-2020 20:17:38 CDT by Kristal Lundberg M.D. [id number]
[2020-02-15] MEDS: atorvastatin 40 mg Tablet 80 MG PO (08:32)
[2020-02-15] MEDS: clopidogrel 75 mg Tablet PO (08:32)
--- NOTE | 2020-02-15 08:36 | PM.PN ---
Subjective Subjective: Interval history: Chart reviewed, BP gradually improving, noted leukocytosis. Has Ness catheter in place. Patient seen and examined, resting in bed, remains on pressor support and IV fluid hydration. Denies any complaints currently. Medications: Reviewed: Yes Medication Review Details: Active Medications Generic Name Dose Route Start Last Admin Trade Name Freq PRN Reason Stop Dose Admin Acetaminophen 650 mg 02/15/20 05:16 Tylenol PO Q6H PRN MILD PAIN Aspirin 81 mg 02/15/20 09:00 02/15/20 08:30 Aspirin Chewable PO Not Given DAILY LATASHA Atorvastatin Calci um 80 mg 02/15/20 09:00 02/15/20 08:32 Lipitor PO 80 mg DAILY LATASHA Administration Clopidogrel Bisulf ate 75 mg 02/15/20 09:00 02/15/20 08:32 Plavix PO 75 mg DAILY LATASHA Administration Divalproex Sodium 250 mg 02/15/20 09:[address] PO BID LATASHA Enoxaparin Sodium 40 mg 02/15/20 05:30 02/15/20 06:01 Lovenox SUBCUT 40 mg Q24H LATASHA Administration Famotidine 20 mg 02/15/20 05:30 02/15/20 06:02 Pepcid Inj IVP 20 mg Q12H LATASHA Administration Norepinephrine Bit artrate 4 mg 254 mls @ 0 mls/h r 02/15/20 03:30 02/15/20 04:07 / Dextrose IV 8 mcg/min .Q0M LATASHA 30.5 mls/hr Titration Protocol Per Protocol Potassium Chloride /Sodium Chloride 20 meq in 1,000 m ls @ 150 mls/hr 02/15/20 05:30 02/15/20 06:00 Sodium Chlor 0.9 % + Kcl 20 Meq IV 150 mls/hr .Q6H40M LATASHA Administration Piperacillin Sod/T azobactam 50 mls @ 12.5 mls /hr 02/15/20 11:00 Sod 3.375 gm/ So dium Chloride IV Q8H LATASHA Protocol Ondansetron HCl 4 mg 02/15/20 05:16 Zofran IVP Q6H PRN NAUSEA AND VOMITI NG Phenytoin 100 mg 02/15/20 09:00 Dilantin PO TID LATASHA No Known Allergies Allergy (Unverified 01/25/20 12:42) Vitals/I&O/Wt Last Vital Signs Temp 99.3 F 02/15/20 01:49 Pulse 74 02/15/20 07:02 Resp 16 02/15/20 07:02 BP 103/71 02/15/20 07:02 Pulse Ox 97 02/15/20 07:02 02/14/20 02/15/20 02/15/20 22:59 06:59 14:59 Intake Total 3636.647 / 3636.647 0 / 0 Balance 3636.647 / 3636.647 0 / 0 Weight last 48 hrs Weight 90.718 kg Physical Exam Const: COMMON NORMALS: no acute distress and patient oriented x3 GENERAL APPEARANCE: cooperative, comfortable and frail appearing; not ill appearing ORIENTATION/CONSCIOUSNESS: Yes awake HENMT: COMMON NORMALS: normocephalic, atraumatic, hearing grossly normal bilaterally and moist oral mucous membranes HEAD & SCALP: normocephalic and atraumatic Eye: COMMON NORMALS: Equal, round and reactive pupils present, EOMs intact bilaterally and conjunctivae normal CONJUNCTIVA: Yes conjunctivae normal PUPIL: Yes Equal, round and reactive pupils present Neck/C-Spine: COMMON NORMALS: full ROM GENERAL: Yes normal visual inspection and Yes trachea midline Resp: COMMON NORMALS: normal respiratory effort, No retractions, No use of accessory muscles and clear to auscultation bilaterally EFFORT & INSPECTION: Yes able to speak in complete sentences, Yes symmetric chest movement and No tachypneic AUSCULTATION: clear to auscultation bilaterally Cardio: COMMON NORMALS: regular rate, regular rhythm, S1 normal heart sound present, S2 normal heart sound present and No murmurs present (Cardio) RATE: regular rate RHYTHM: regular rhythm HEART SOUNDS: S1 normal heart sound present and S2 normal heart sound present GI: COMMON NORMALS: Normal to inspection, nondistended, normoactive bowel sounds present, Soft to palpation and non-tender PALPATION: Yes Soft to palpation : BLADDER/KIDNEY EXAM: Yes catheter in place Catheter type (Male): urethral Extremity: COMMON NORMALS: normal to inspection, full ROM, no clubbing, cyanosis or edema and no pedal edema Neuro: COMMON NORMALS: patient oriented x3, moves all extremities, no focal motor deficits and no sensory deficits noted Psych: COMMON NORMALS: mental status grossly normal, Normal thought process present, cooperative, normal affect and speech normal SPEECH: Yes normal speech THOUGHT PROCESS: Normal thought process present Skin: COMMON NORMALS: no rashes or lesions noted, no jaundice, no petechiae and no mottling GENERAL SKIN EXAM: no rashes or lesions noted Urinary Catheter Management^: Ness: Cath Placed During This Visit: yes Urethral Indwelling: Yes Reason for Continuing Indwelling Catheter: Accurate Measurement of Urinary Output in Critically Ill Patients Urinary Catheter Date of Insertion: 02/15/20 Urinary Catheter Time of Insertion: 02:18 Data : 02/15/20 02:05 02/15/20 02:05 Micro: Microbiology 02/15/20 02:55 Blood Culture - Preliminary Blood SPECIMEN COLLECTED 02/15/20 02:05 Blood Culture - Preliminary Blood SPECIMEN COLLECTED A&P Assessment and plan (1) Acute UTI: -has known hx of recurrent UTIs including most recently earlier this month when he was treated for pyelonephritis with cefdinir -associated sepsis as noted below -trend WBC -continue IVF, pressor support as needed to maintain MAP > 65 -continue Zosyn -f/u urine cx -f/u blood cx -last urine cx (01/25/20) grew E.coli and Proteus mirabilis -has Ness catheter in place Status: Acute (2) Sepsis: -secondary to UTI as noted above -evidenced by lactic acidosis, hypotension, tachycardia, leukocytosis -improving BP, resolved tachycardia, afebrile; continue to monitor vital signs Status: Acute Qualifiers: Sepsis acute organ dysfunction status: unspecified Sepsis type: sepsis due to unspecified organism Qualified Code(s): A41.9 - Sepsis, unspecified organism (3) Non-STEMI (non-ST elevated myocardial infarction): -noted significant delta on troponin trend -likely demand ischemia secondary to sepsis due to acute infection -telemetry monitoring Status: Acute (4) Urinary retention: -has prior hx of urinary retention -has been following up with Dr. Huerta -Had previously been noted to have mild to moderate hydronephrosis on the right and mild hydronephrosis on the left on previous CT abdomen/pelvis. Renal ultrasound done on 02/08 shows resolved hydronephrosis. -Has Ness catheter in place -No noted hydronephrosis on CT abdomen and pelvis done on 02/14 Status: Acute (5) Hydrocephalus: -has known hx of hydrocephalus s/p SAFETY ANALYST shunting -CT head shows stable SAFETY ANALYST shunt, no acute abnormalities Status: Acute Qualifiers: Hydrocephalus type: unspecified Qualified Code(s): G91.9 - Hydrocephalus, unspecified Additional A&P Information -hx of dementia, CVA, is WC bound; f/u with Dr. Morfin who suspects possibility of Lewy body disease versus gradual degenerative disease. On ASA, Plavix -hx of epilepsy; on Depakote, Dilantin -BPH; Flomax on hold due to hypotension -GERD; on Pepcid -Hyperlipidemia; on statin -hx of CHF, unknown type, no baseline Echo; Lasix on hold -chronic normocytic anemia; baseline Hg is around 10; H/H stable -documented hx of DM though A1c-5.3 (08/2019); hyperglycemia likely secondary to infection -currently NPO, requires feeding assistance -aspiration precautions -fall precautions -GI ppx with Famotidine -DVT ppx with Lovenox -Dispo: return to [facility] -Code status: DNR, ok with intubation if needed -DPOA-Alexander Darby -ICU care due to pressor support Attestations Medical Necessity Statement*: Patient requires hospitalization for management of UTI with associated sepsis currently requiring IV fluid hydration, pressor support and broad-spectrum IV antibiotics. Time Spent in Patient Care: Greater than 35 minutes (>than 50% of time spent in counselling and/or direct pt care on unit). Coding Level of Care Code Acute Animal Care Giver for g Fwd Exam Comprehensive Diagnoses Acute UTI N39.0 Sepsis A41.9 Sepsis acute organ dysfunction status: unspecified Sepsis type: sepsis due to unspecified organism Non-STEMI (non-ST elevated myocardial infarction) I21.4 Urinary retention R33.9 Hydrocephalus G91.9 Hydrocephalus type: unspecified
[2020-02-15 08:40] LABS: Troponin 5 6HR 627.4 ng/mL (0-15)
[2020-02-15] MEDS: divalproex DR 250 mg Tablet PO ×2 (09:05→20:06)
[2020-02-15] MEDS: phenytoin ER 100 mg Capsule PO ×3 (09:05→20:06)
[2020-02-15 12:47] LABS: Glucose Point of Care 172 mg/dL (70-110)
[2020-02-15] MEDS: iohexol 300 mg/mL 100 mL Btl IV (14:53)
[2020-02-15 17:17] LABS: Glucose Point of Care 99 mg/dL (70-110)
--- NOTE | 2020-02-15 22:45 | PC.NURSE ---
Lab called positive blood culture 1 bottle positive for gram positive cocci in clusters. Called to Dr. Young who said she was going to order Vancomycin for pharmacy to dose.
--- NOTE | 2020-02-15 23:05 | PC.PHAR ---
Pharmacokinetic dosing service Date: 02/15/20 Time: 2329 Objective: Patient: Sammy Farmer Floor: ICU-1 Age: 64 yo Serum creatinine: 0.9 mg/dL Height: 72.0 Inches Weight (kg): 92.986 Diagnosis: Relevant medical/social history: Cultures and sensitivities: Other labs: Assessment: IBW (kg): 77.60 Dosing wt(kg): 92.986 Estimated Creatinine clearance (ml/min): 93.4 CRCL method: Cockcroft and Gault using ibw(default). Drug selected: Vancomycin Loading dose (mg): 0 Vd (liters): 83.7 (factor used: 0.9 L/kg) Son (hr-1): 0.082 Half life (hrs): 8.45 Recommended dose: 1500 mg Interval: 12 hrs Infusion time (hrs): 1.5 Predicted peak (mcg/mL): 26.9 Predicted trough (mcg/mL): 11.37 Total body weight is being used for vancomycin dosing. Renal function is stable [ ] /unstable [ ] Recommendations: Give Vancomycin 1500 mg q 12 hrs with an expected Cpeak of 26.9 mcg/ml and an expected Ctrough of 11.37 mcg/ml Renal dosing of other antibiotics (review renal dosing of other medications and list guidelines here): Thank you for the consult, will continue to follow. Signature: Bernie Garland [facility]
[2020-02-16] VITALS (15 sets, daily range): BP systolic 86–119; BP diastolic 55–74; PULSE 79–90; RESP 20–27; TEMP 36.8–37.4; O2SAT 95–100
[2020-02-16] MEDS: sodium chlor 0.9% + KCl 20 mEq 20 MEQ/1,000 ML BAG 150 MEQ IV (01:39)
[2020-02-16] MEDS: piperacillin-tazobactam 3.375 GM in sodium chloride 0.9% (plus) 50 ML IV ×3 (02:32→18:35)
[2020-02-16] MEDS: enoxaparin 40 mg/0.4 mL Syringe SUBCUT (05:24)
[2020-02-16] MEDS: famotidine 20 mg/2 mL INJ IVP ×2 (05:24→16:21)
[2020-02-16 07:29] LABS: Basophils % 0.5 %; Eosinophils # 0.1 10^3/uL (0.0-0.8); Eosinophils % 1.4 %; Hematocrit 32.2 % (42.0-52.0); Lymphocytes # 1.7 10^3/uL (0.8-4.8); Lymphocytes % 22.2 %; Mean Corpuscular HGB Conc 31.1 g/dL (30.0-36.0); Mean Corpuscular Hemoglobin 29.9 pg (28.0-34.0); Mean Corpuscular Volume 96.4 fL (80-94); Monocytes % 12.3 %; Neutrophils # 4.9 10^3/uL (1.8-7.7); Neutrophils % 63.3 %; Nucleated Red Blood Cells % 0 %; Platelet Count 105 10^3/cmm (130-400); Red Blood Count 3.34 10^6/uL (4.1-5.3); Red Cell Distribution Width 17.1 % (12.1-15.1); White Blood Count 7.7 10^3/uL (4.0-10.0)
[2020-02-16 07:50] LABS: Anion Gap 13.2 (5-19); Blood Urea Nitrogen 7 mg/dL (8-23); Calcium 8.6 mg/dL (8.5-10.5); Carbon Dioxide 21 mmol/L (22-29); Chloride 111 mmol/L (98-107); Glomerular Filtration Rate 136.5 mL/min (90-130); Glucose 92 mg/dL (65-115); Magnesium 1.6 mg/dL (1.7-2.3); Osmolality Calculated 287 mOsm/kg (285-295); Potassium 4.2 mmol/L (3.5-5.1); Sodium 141 mmol/L (136-145)
[2020-02-16] MEDS: divalproex DR 250 mg Tablet PO ×2 (08:23→16:20)
[2020-02-16] MEDS: phenytoin ER 100 mg Capsule PO ×3 (08:23→21:00)
[2020-02-16] MEDS: aspirin 81 mg Chew Tablet PO (08:24)
[2020-02-16] MEDS: clopidogrel 75 mg Tablet PO (08:24)
[2020-02-16] MEDS: atorvastatin 40 mg Tablet 80 MG PO (08:24)
[2020-02-16] MEDS: sodium chlor 0.9% + KCl 20 mEq 20 MEQ/1,000 ML BAG 75 MEQ IV (09:04)
--- NOTE | 2020-02-16 12:07 | P.PN_ITS ---
Subjective Subjective: Interval history: Weaned off pressor support around 1700, BP stable, AM labs noted with resolved leukocytosis, drop in Hg and platelet count, low Mg. / bottles from initial blood cx growing GPC, Vancomycin added and repeat cultures ordered. Afebrile. Had 750 mL urine output overnight. Resting comfortably in bed, no apparent distress, no complaints currently but is reque sting to sit up in a chair. Will transfer to floor for continued care. Medications: Reviewed: Yes Medication Review Details: Active Medications Generic Name Dose Route Start Last Admin Trade Name Freq PRN Reason Stop Dose Admin Acetaminophen 650 mg 02/15/20 05:16 Tylenol PO Q6H PRN MILD PAIN Aspirin 81 mg 02/15/20 09:00 02/16/20 08:24 Aspirin Chewable PO 81 mg DAILY LATASHA Administration Atorvastatin Calci um 80 mg 02/15/20 09:00 02/16/20 08:24 Lipitor PO 80 mg DAILY LATASHA Administration Clopidogrel Bisulf ate 75 mg 02/15/20 09:00 02/16/20 08:24 Plavix PO 75 mg DAILY LATASHA Administration Divalproex Sodium 250 mg 02/15/20 09:00 02/16/20 08:[address] PO 250 mg BID LATASHA Administration Enoxaparin Sodium 40 mg 02/15/20 05:30 02/16/20 05:24 Lovenox SUBCUT 40 mg Q24H LATASHA Administration Famotidine 20 mg 02/15/20 05:30 02/16/20 05:24 Pepcid Inj IVP 20 mg Q12H LATASHA Administration Norepinephrine Bit artrate 4 mg 254 mls @ 0 mls/h r 02/15/20 03:30 02/15/20 04:07 / Dextrose IV 8 mcg/min .Q0M LATASHA 30.5 mls/hr Titration Protocol Per Protocol Potassium Chloride /Sodium Chloride 20 meq in 1,000 m ls @ 75 mls/hr 02/15/20 05:30 02/16/20 09:04 Sodium Chlor 0.9 % + Kcl 20 Meq IV 75 mls/hr .[id number] LATASHA Administration Piperacillin Sod/T azobactam 50 mls @ 12.5 mls /hr 02/15/20 11:00 02/16/20 10:47 Sod 3.375 gm/ So dium Chloride IV 12.5 mls/hr Q8H LATASHA Administration Protocol Vancomycin HCl 1,5 00 mg/ 250 mls @ 166.667 mls/hr 02/15/20 23:30 02/16/20 01:09 Sodium Chloride IV Infused Q12H LATASHA Infusion Magnesium Sulfate 2 gm in 50 mls @ 50 mls/hr 02/16/20 12:07 Magnesium Sulfat e Premix IV 02/16/20 13:06 ONCE ONE Ondansetron HCl 4 mg 02/15/20 05:16 Zofran IVP Q6H PRN NAUSEA AND VOMITI NG Phenytoin 100 mg 02/15/20 09:00 02/16/20 08:23 Dilantin PO 100 mg TID LATASHA Administration No Known Allergies Allergy (Unverified 01/25/20 12:42) Vitals/I&O/Wt Last Vital Signs Temp 99.4 F 02/16/20 10:24 Pulse 90 02/16/20 09:00 Resp 22 H 02/16/20 09:00 BP 99/62 02/16/20 09:00 Pulse Ox 97 02/16/20 09:00 02/15/20 02/16/20 02/16/20 22:59 06:59 14:59 Intake Total 1502.5 / 2502.5 1300 / 3802.5 1240 / 1240 Output Total 1000 / 1000 750 / 1750 Balance 502.5 / 1502.5 550 / 2052.5 1240 / 1240 Weight last 48 hrs Weight 96.36 kg Weight 92.986 kg Weight 90.718 kg Physical Exam Const: COMMON NORMALS: no acute distress and patient oriented x3 GENERAL APPEARANCE: cooperative, comfortable, frail appearing and appears older than stated age; not ill appearing ORIENTATION/CONSCIOUSNESS: Yes awake HENMT: COMMON NORMALS: normocephalic, atraumatic, hearing grossly normal bilaterally and moist oral mucous membranes HEAD & SCALP: normocephalic and atraumatic Eye: COMMON NORMALS: Equal, round and reactive pupils present, EOMs intact bilaterally and conjunctivae normal CONJUNCTIVA: Yes conjunctivae normal PUPIL: Yes Equal, round and reactive pupils present Neck/C-Spine: COMMON NORMALS: full ROM GENERAL: Yes normal visual inspection and Yes trachea midline Resp: COMMON NORMALS: normal respiratory effort, No retractions, No use of accessory muscles and clear to auscultation bilaterally EFFORT & INSPECTION: Yes able to speak in complete sentences, Yes symmetric chest movement and No tachypneic AUSCULTATION: clear to auscultation bilaterally Cardio: COMMON NORMALS: regular rate, regular rhythm, S1 normal heart sound present, S2 normal heart sound present and No murmurs present (Cardio) RATE: regular rate RHYTHM: regular rhythm HEART SOUNDS: S1 normal heart sound present and S2 normal heart sound present GI: COMMON NORMALS: Normal to inspection, nondistended, normoactive bowel sounds present, Soft to palpation and non-tender PALPATION: Yes Soft to palpation : BLADDER/KIDNEY EXAM: Yes catheter in place Extremity: COMMON NORMALS: normal to inspection, full ROM, no clubbing, cyanosis or edema and no pedal edema Neuro: COMMON NORMALS: patient oriented x3, moves all extremities, no focal motor deficits and no sensory deficits noted Psych: COMMON NORMALS: mental status grossly normal, Normal thought process present, cooperative, normal affect and speech normal SPEECH: Yes normal speech THOUGHT PROCESS: Normal thought process present Skin: COMMON NORMALS: no rashes or lesions noted, no jaundice, no petechiae and no mottling GENERAL SKIN EXAM: no rashes or lesions noted Urinary Catheter Management^: Ness: Cath Placed During This Visit: yes Urethral Indwelling: Yes Reason for Continuing Indwelling Catheter: Accurate Measurement of Urinary Output in Critically Ill Patients Urinary Catheter Date of Insertion: 02/15/20 Urinary Catheter Time of Insertion: 02:18 Data : 02/16/20 07:08 02/16/20 07:08 Micro: Microbiology 02/15/20 02:05 Blood Culture - Preliminary Blood Gram positive cocci 02/16/20 07:22 Blood Culture - Preliminary Blood SPECIMEN COLLECTED 02/16/20 07:08 Blood Culture - Preliminary Blood SPECIMEN COLLECTED 02/15/20 02:55 Blood Culture - Preliminary Blood NEGATIVE TO DATE A&P Assessment and plan (1) Acute UTI: -has known hx of recurrent UTIs including most recently earlier this month when he was treated for pyelonephritis with cefdinir -associated sepsis as noted below -leukocytosis resolved -continue IVF, off pressor support -continue Zosyn; Vanc added due to noted GPC in blood cx -f/u urine cx -blood cx: 10/03 bottles growing GPC; repeat set ordered -last urine cx (01/25/20) grew E.coli and Proteus mirabilis -has Ness catheter in place Status: Acute (2) Sepsis: -secondary to UTI as noted above -evidenced by lactic acidosis, hypotension, tachycardia, leukocytosis -improving BP, resolved tachycardia, afebrile, resolved leukocytosis and lactic acidosis; continue to monitor vital signs Status: Resolved Qualifiers: Sepsis acute organ dysfunction status: unspecified Sepsis type: sepsis due to unspecified organism Qualified Code(s): A41.9 - Sepsis, unspecified organism (3) Non-STEMI (non-ST elevated myocardial infarction): -noted significant delta on troponin trend -likely demand ischemia secondary to sepsis due to acute infection -telemetry monitoring Status: Acute (4) Urinary retention: -has prior hx of urinary retention -has been following up with Dr. Huerta -Had previously been noted to have mild to moderate hydronephrosis on the right and mild hydronephrosis on the left on previous CT abdomen/pelvis. Renal ultrasound done on 02/08 shows resolved hydronephrosis. -Has Ness catheter in place -No noted hydronephrosis on CT abdomen and pelvis done on 02/14 Status: Acute (5) Hydrocephalus: -has known hx of hydrocephalus s/p CLEARANCE COORDINATOR shunting -CT head shows stable CLEARANCE COORDINATOR shunt, no acute abnormalities Status: Acute Qualifiers: Hydrocephalus type: unspecified Qualified Code(s): G91.9 - Hydrocephalus, unspecified Additional A&P Information -hx of dementia, CVA, is WC bound; f/u with Dr. Morfin who suspects possibility of Lewy body disease versus gradual degenerative disease. On ASA, Plavix -hx of epilepsy; on Depakote, Dilantin -BPH; Flomax on hold due to hypotension -GERD; on Pepcid -Hyperlipidemia; on statin -hx of CHF, unknown type, no baseline Echo; can resume Lasix to prevent fluid overload as on IVF -chronic normocytic anemia; baseline Hg is around 10; H/H stable -documented hx of DM though A1c-5.3 (08/2019); hyperglycemia likely secondary to infection -ST evaluation appreciated; on mechanical soft diet, requires feeding assistance -aspiration precautions -fall precautions -GI ppx with Famotidine -DVT ppx with Lovenox, hold this for now given noted drop in Hg and platelet count -Dispo: return to [facility] -Code status: DNR, ok with intubation if needed -DPOA-Alexander Darby -transfer to floor for continued care Attestations Medical Necessity Statement*: Patient requires hospitalization for continued IV antibiotic treatment for complicated UTI, pending culture results. Time Spent in Patient Care: 16 - 35 minutes (>than 50% of time spent in counselling and/or direct pt care on unit) . Coding Level of Care Code Acute Communication Manager for g Fwd Exam Comprehensive Diagnoses Acute UTI N39.0 Sepsis A41.9 Sepsis acute organ dysfunction status: unspecified Sepsis type: sepsis due to unspecified organism Non-STEMI (non-ST elevated myocardial infarction) I21.4 Urinary retention R33.9 Hydrocephalus G91.9 Hydrocephalus type: unspecified
[2020-02-16] MEDS: magnesium sulfate premix 2 GM/50 ML PIGGYBACK IV (13:07)
[2020-02-16] MEDS: FUROsemide 40 mg Tablet PO (16:20)
[2020-02-16 22:52] LABS: Vancomycin Trough 15.8 ug/mL (10-15)
[2020-02-17] VITALS (10 sets, daily range): BP systolic 89–110; BP diastolic 56–65; PULSE 78–86; RESP 17–24; TEMP 37.1–37.4; O2SAT 93–97
[2020-02-17] MEDS: piperacillin-tazobactam 3.375 GM in sodium chloride 0.9% (plus) 50 ML IV ×3 (03:34→17:02)
[2020-02-17] MEDS: sodium chlor 0.9% + KCl 20 mEq 20 MEQ/1,000 ML BAG 75 MEQ IV (03:36)
[2020-02-17 05:05] LABS: Basophils % 0.3 %; Eosinophils # 0.2 10^3/uL (0.0-0.8); Hematocrit 35.4 % (42.0-52.0); Hemoglobin 11.1 g/dL (11.7-16.6); Lymphocytes # 1.5 10^3/uL (0.8-4.8); Mean Corpuscular HGB Conc 31.4 g/dL (30.0-36.0); Mean Corpuscular Volume 95.7 fL (80-94); Mean Platelet Volume 10.1 fL (7.4-10.4); Monocytes # 0.7 10^3/uL (0.2-0.9); Monocytes % 11.7 %; Neutrophils # 3.9 10^3/uL (1.8-7.7); Neutrophils % 61.7 %; Nucleated Red Blood Cells % 0 %; Platelet Count 112 10^3/cmm (130-400); Red Cell Distribution Width 16.9 % (12.1-15.1); White Blood Count 6.3 10^3/uL (4.0-10.0)
[2020-02-17 05:26] LABS: Anion Gap 13.6 (5-19); Blood Urea Nitrogen 5 mg/dL (8-23); Calcium 9.3 mg/dL (8.5-10.5); Carbon Dioxide 25 mmol/L (22-29); Chloride 108 mmol/L (98-107); Glomerular Filtration Rate 168.5 mL/min (90-130); Glucose 92 mg/dL (65-115); Magnesium 1.8 mg/dL (1.7-2.3); Osmolality Calculated 291 mOsm/kg (285-295); Potassium 3.6 mmol/L (3.5-5.1); Sodium 143 mmol/L (136-145)
[2020-02-17] MEDS: famotidine 20 mg/2 mL INJ IVP ×2 (05:27→16:57)
[2020-02-17] MEDS: divalproex DR 250 mg Tablet PO ×2 (08:19→17:01)
[2020-02-17] MEDS: phenytoin ER 100 mg Capsule PO ×3 (08:20→20:58)
[2020-02-17] MEDS: FUROsemide 40 mg Tablet PO (08:20)
[2020-02-17] MEDS: aspirin 81 mg Chew Tablet PO (08:20)
[2020-02-17] MEDS: clopidogrel 75 mg Tablet PO (08:20)
[2020-02-17] MEDS: atorvastatin 40 mg Tablet 80 MG PO (08:20)
--- NOTE | 2020-02-17 12:48 | P.PN_ITS ---
Subjective Subjective: Interval history: Remains afebrile, hemodynamically stable, had 3800 mL urine output overnight. AM labs noted with stable hemoglobin and platelet count. Patient resting in bed, no acute overnight events reported, no complaints currently. Will d/c IVF, noted low/low-normal BP, will give IVF boluses as needed, urine culture pending. Medications: Reviewed: Yes Medication Review Details: Active Medications Generic Name Dose Route Start Last Admin Trade Name Freq PRN Reason Stop Dose Admin Acetaminophen 650 mg 02/15/20 05:16 Tylenol PO Q6H PRN MILD PAIN Aspirin 81 mg 02/15/20 09:00 02/17/20 08:20 Aspirin Chewable PO 81 mg DAILY LATASHA Administration Atorvastatin Calci um 80 mg 02/15/20 09:00 02/17/20 08:20 Lipitor PO 80 mg DAILY LATASHA Administration Clopidogrel Bisulf ate 75 mg 02/15/20 09:00 02/17/20 08:20 Plavix PO 75 mg DAILY LATASHA Administration Divalproex Sodium 250 mg 02/15/20 09:00 02/17/20 08:[address] PO 250 mg BID LATASHA Administration Enoxaparin Sodium 40 mg 02/15/20 05:30 02/16/20 05:24 Lovenox SUBCUT 40 mg Q24H LATASHA Administration Famotidine 20 mg 02/15/20 05:30 02/17/20 05:27 Pepcid Inj IVP 20 mg Q12H LATASHA Administration Furosemide 40 mg 02/16/20 16:00 02/17/20 08:20 Lasix PO 40 mg BID@08,16 LATASHA Administration Piperacillin Sod/T azobactam 50 mls @ 12.5 mls /hr 02/15/20 11:00 02/17/20 10:15 Sod 3.375 gm/ So dium Chloride IV 12.5 mls/hr Q8H LATASHA Administration Protocol Vancomycin HCl 1,5 00 mg/ 250 mls @ 166.667 mls/hr 02/15/20 23:30 02/17/20 01:44 Sodium Chloride IV 166.6 mls/hr Q12H LATASHA Administration Ondansetron HCl 4 mg 02/15/20 05:16 Zofran IVP Q6H PRN NAUSEA AND VOMITI NG Phenytoin 100 mg 02/15/20 09:00 02/17/20 08:20 Dilantin PO 100 mg TID LATASHA Administration No Known Allergies Allergy (Unverified 01/25/20 12:42) Vitals/I&O/Wt Last Vital Signs Temp 99.1 F 02/17/20 11:11 Pulse 82 02/17/20 11:11 Resp 19 H 02/17/20 11:11 BP 98/62 02/17/20 11:26 Pulse Ox 94 02/17/20 11:11 02/16/20 02/17/20 02/17/20 22:59 06:59 14:59 Intake Total 1300 / 3090 530 / 3620 410 / 410 Output Total 2000 / 2950 1800 / 4750 Balance -700 / 140 -1270 / -1130 410 / 410 Weight last 48 hrs Weight 96.36 kg Physical Exam Const: COMMON NORMALS: no acute distress and patient oriented x3 GENERAL APPEARANCE: cooperative, comfortable, frail appearing and appears older than stated age; not ill appearing ORIENTATION/CONSCIOUSNESS: Yes awake HENMT: COMMON NORMALS: normocephalic, atraumatic, hearing grossly normal bilaterally and moist oral mucous membranes HEAD & SCALP: normocephalic and atraumatic Eye: COMMON NORMALS: Equal, round and reactive pupils present, EOMs intact bilaterally and conjunctivae normal CONJUNCTIVA: Yes conjunctivae normal PUPIL: Yes Equal, round and reactive pupils present Neck/C-Spine: COMMON NORMALS: full ROM GENERAL: Yes normal visual inspection and Yes trachea midline Resp: COMMON NORMALS: normal respiratory effort, No retractions, No use of accessory muscles and clear to auscultation bilaterally EFFORT & INSPECTION: Yes able to speak in complete sentences, Yes symmetric chest movement and No tachypneic AUSCULTATION: clear to auscultation bilaterally Cardio: COMMON NORMALS: regular rate, regular rhythm, S1 normal heart sound present, S2 normal heart sound present and No murmurs present (Cardio) RATE: regular rate RHYTHM: regular rhythm HEART SOUNDS: S1 normal heart sound present and S2 normal heart sound present GI: COMMON NORMALS: Normal to inspection, nondistended, normoactive bowel sounds present, Soft to palpation and non-tender PALPATION: Yes Soft to palpation : BLADDER/KIDNEY EXAM: Yes catheter in place Extremity: COMMON NORMALS: normal to inspection, full ROM, no clubbing, cyanosis or edema and no pedal edema Neuro: COMMON NORMALS: patient oriented x3, moves all extremities, no focal motor deficits and no sensory deficits noted Psych: COMMON NORMALS: mental status grossly normal, Normal thought process present, cooperative, normal affect and speech normal SPEECH: Yes normal speech THOUGHT PROCESS: Normal thought process present Skin: COMMON NORMALS: no jaundice, no petechiae and no mottling GENERAL SKIN EXAM: crusts (seborrheic dermatitis involving face, anterior chest) and dry skin Urinary Catheter Management^: Ness: Cath Placed During This Visit: yes Urethral Indwelling: Yes Reason for Continuing Indwelling Catheter: Chronic Indwelling Urinary Catheter on Admission Urinary Catheter Date of Insertion: 02/15/20 Urinary Catheter Time of Insertion: 02:18 Data : 02/17/20 04:29 02/17/20 04:29 Micro: Microbiology 02/16/20 07:22 Blood Culture - Preliminary Blood NEGATIVE TO DATE 02/16/20 07:08 Blood Culture - Preliminary Blood NEGATIVE TO DATE 02/15/20 02:21 Urine Culture - Preliminary Urine Catheterized Gram Negative Rods 02/15/20 02:05 Blood Culture - Preliminary Blood Gram positive cocci A&P Assessment and plan (1) Acute UTI: -has known hx of recurrent UTIs including most recently earlier this month when he was treated for pyelonephritis with cefdinir -associated sepsis as noted below -leukocytosis resolved -continue IVF, off pressor support -continue Zosyn; Vanc added due to noted GPC in blood cx -urine cx: GNRs, pending ID & sensitivity -blood cx: 10/03 bottles growing GPC; repeat set ordered -last urine cx (01/25/20) grew E.coli and Proteus mirabilis -has Ness catheter in place Status: Acute (2) Sepsis: -secondary to UTI as noted above -evidenced by lactic acidosis, hypotension, tachycardia, leukocytosis -improving BP, resolved tachycardia, afebrile, resolved leukocytosis and lactic acidosis; continue to monitor vital signs Status: Resolved Qualifiers: Sepsis acute organ dysfunction status: unspecified Sepsis type: sepsis due to unspecified organism Qualified Code(s): A41.9 - Sepsis, unspecified organism (3) Non-STEMI (non-ST elevated myocardial infarction): -noted significant delta on troponin trend -likely demand ischemia secondary to sepsis due to acute infection -telemetry monitoring Status: Acute (4) Urinary retention: -has prior hx of urinary retention -has been following up with Dr. Huerta -Had previously been noted to have mild to moderate hydronephrosis on the right and mild hydronephrosis on the left on previous CT abdomen/pelvis. Renal ultrasound done on 02/08 shows resolved hydronephrosis. -Has Ness catheter in place -No noted hydronephrosis on CT abdomen and pelvis done on 02/14 Status: Chronic (5) Hydrocephalus: -has known hx of hydrocephalus s/p DERRICK BARGE OPERATOR shunting -CT head shows stable DERRICK BARGE OPERATOR shunt, no acute abnormalities Status: Chronic Qualifiers: Hydrocephalus type: unspecified Qualified Code(s): G91.9 - Hydrocephalus, unspecified Additional A&P Information -hx of dementia, CVA, is WC bound; f/u with Dr. Morfin who suspects possibility of Lewy body disease versus gradual degenerative disease. On ASA, Plavix -hx of epilepsy; on Depakote, Dilantin -BPH; resume Flomax, previously on hold due to hypotension -GERD; on Pepcid -Hyperlipidemia; on statin -hx of CHF, unknown type, no baseline Echo; hold Lasix for now due to borderline low BP -chronic normocytic anemia; baseline Hg is around 10; H/H stable -documented hx of DM though A1c-5.3 (08/2019); hyperglycemia likely secondary to infection -ST evaluation appreciated; on mechanical soft diet, requires feeding assistance -aspiration precautions -fall precautions -GI ppx with Famotidine -DVT ppx with Lovenox, hold this for now given noted drop in Hg and platelet count; if stable, can resume AC -Dispo: return to [facility]; bed-/WC-bound at baseline -Code status: DNR, ok with intubation if needed -PILOOA-Alexander Darby Attestations Medical Necessity Statement*: Patient requires hospitalization for continued IV antibiotic therapy for treatment of UTI pending culture results. Time Spent in Patient Care: 16 - 35 minutes (>than 50% of time spent in counselling and/or direct pt care on unit) . Coding Level of Care Code Acute Meat Smoker for g Fwd Exam Comprehensive Diagnoses Acute UTI N39.0 Sepsis A41.9 Sepsis acute organ dysfunction status: unspecified Sepsis type: sepsis due to unspecified organism Non-STEMI (non-ST elevated myocardial infarction) I21.4 Urinary retention R33.9 Hydrocephalus G91.9 Hydrocephalus type: unspecified
[2020-02-17] MEDS: tamsulosin 0.4 mg Capsule PO (13:34)
[2020-02-17] MEDS: sodium chloride 0.9% 250 ML IV (16:12)
[2020-02-18] VITALS: BP 95/59; PULSE 79; RESP 20; TEMP 36.9; O2SAT 95
[2020-02-18] MEDS: piperacillin-tazobactam 3.375 GM in sodium chloride 0.9% (plus) 50 ML IV ×2 (03:50→10:30)
[2020-02-18 04:00] VITALS: BP 100/63; PULSE 76; RESP 20; TEMP 37.2; O2SAT 96
[2020-02-18] MEDS: enoxaparin 40 mg/0.4 mL Syringe SUBCUT (06:43)
[2020-02-18 07:36] VITALS: BP 98/60; PULSE 75; RESP 16; TEMP 37.1; O2SAT 95
--- NOTE | 2020-02-18 07:59 | P.PN_ITS ---
Subjective Subjective: Interval history: Had 2800 mL urine output overnight, afebrile, stable BP. Urine cx grew pseudomonas aeruginosa, sensitivity noted. Will discontinue Ness catheter. Patient reports feeling well, no complaints, no acute overnight events reported. Medications: Reviewed: Yes Medication Review Details: Active Medications Generic Name Dose Route Start Last Admin Trade Name Freq PRN Reason Stop Dose Admin Acetaminophen 650 mg 02/15/20 05:16 Tylenol PO Q6H PRN MILD PAIN Aspirin 81 mg 02/15/20 09:00 02/17/20 08:20 Aspirin Chewable PO 81 mg DAILY LATASHA Administration Atorvastatin Calci um 80 mg 02/15/20 09:00 02/17/20 08:20 Lipitor PO 80 mg DAILY LATASHA Administration Clopidogrel Bisulf ate 75 mg 02/15/20 09:00 02/17/20 08:20 Plavix PO 75 mg DAILY LATASHA Administration Divalproex Sodium 250 mg 02/15/20 09:00 02/17/20 17:[address] PO 250 mg BID LATASHA Administration Enoxaparin Sodium 40 mg 02/15/20 05:30 02/18/20 06:43 Lovenox SUBCUT 40 mg Q24H LATASHA Administration Famotidine 20 mg 02/18/20 09:00 Pepcid Tab PO BID LATASHA Furosemide 40 mg 02/18/20 08:00 Lasix PO DAILY@0800 [facility] Piperacillin Sod/T azobactam 50 mls @ 12.5 mls /hr 02/15/20 11:00 02/18/20 03:50 Sod 3.375 gm/ So dium Chloride IV 12.5 mls/hr Q8H LATASHA Administration Protocol Vancomycin HCl 1,5 00 mg/ 250 mls @ 166.667 mls/hr 02/15/20 23:30 02/18/20 03:51 Sodium Chloride IV Infused Q12H LATASHA Infusion Ondansetron HCl 4 mg 02/15/20 05:16 Zofran IVP Q6H PRN NAUSEA AND VOMITI NG Phenytoin 100 mg 02/15/20 09:00 02/17/20 20:58 Dilantin PO 100 mg TID LATASHA Administration Tamsulosin HCl 0.4 mg 02/17/20 13:00 02/17/20 13:34 Flomax PO 0.4 mg DAILY LATASHA Administration No Known Allergies Allergy (Unverified 01/25/20 12:42) Vitals/I&O/Wt Last Vital Signs Temp 98.8 F 02/18/20 07:36 Pulse 75 02/18/20 07:36 Resp 16 02/18/20 07:36 BP 98/60 02/18/20 07:36 Pulse Ox 95 02/18/20 07:36 02/17/20 02/18/20 02/18/20 22:59 06:59 14:59 Intake Total 300 / 760 250 / 1010 Output Total 1950 / 1950 1850 / 3800 Balance -1650 / -1190 -1600 / -2790 Physical Exam Const: COMMON NORMALS: no acute distress and patient oriented x3 GENERAL APPEARANCE: cooperative, comfortable, frail appearing and appears older than stated age; not ill appearing ORIENTATION/CONSCIOUSNESS: Yes awake HENMT: COMMON NORMALS: normocephalic, atraumatic, hearing grossly normal bilaterally and moist oral mucous membranes HEAD & SCALP: normocephalic and atraumatic Eye: COMMON NORMALS: Equal, round and reactive pupils present, EOMs intact bilaterally and conjunctivae normal CONJUNCTIVA: Yes conjunctivae normal PUPIL: Yes Equal, round and reactive pupils present Neck/C-Spine: COMMON NORMALS: full ROM GENERAL: Yes normal visual inspection and Yes trachea midline Resp: COMMON NORMALS: normal respiratory effort, No retractions, No use of accessory muscles and clear to auscultation bilaterally EFFORT & INSPECTION: Yes able to speak in complete sentences, Yes symmetric chest movement and No tachypneic AUSCULTATION: clear to auscultation bilaterally Cardio: COMMON NORMALS: regular rate, regular rhythm, S1 normal heart sound present, S2 normal heart sound present and No murmurs present (Cardio) RATE: regular rate RHYTHM: regular rhythm HEART SOUNDS: S1 normal heart sound present and S2 normal heart sound present GI: COMMON NORMALS: Normal to inspection, nondistended, normoactive bowel sounds present, Soft to palpation and non-tender PALPATION: Yes Soft to palpation : BLADDER/KIDNEY EXAM: Yes catheter in place Extremity: COMMON NORMALS: normal to inspection, full ROM, no clubbing, cyanosis or edema and no pedal edema Neuro: COMMON NORMALS: patient oriented x3, moves all extremities, no focal motor deficits and no sensory deficits noted Psych: COMMON NORMALS: mental status grossly normal, Normal thought process present, cooperative, normal affect and speech normal SPEECH: Yes normal speech THOUGHT PROCESS: Normal thought process present Skin: COMMON NORMALS: no jaundice, no petechiae and no mottling GENERAL SKIN EXAM: crusts (seborrheic dermatitis involving face, anterior chest) and dry skin Urinary Catheter Management^: Ness: Cath Placed During This Visit: yes Urethral Indwelling: Yes Reason for Continuing Indwelling Catheter: Chronic Indwelling Urinary Catheter on Admission Urinary Catheter Date of Insertion: 02/15/20 Urinary Catheter Time of Insertion: 02:18 Data : 02/17/20 04:29 02/17/20 04:29 Micro: Microbiology 02/16/20 07:22 Blood Culture - Preliminary Blood NEGATIVE TO DATE 02/16/20 07:08 Blood Culture - Preliminary Blood NEGATIVE TO DATE A&P Assessment and plan (1) Acute UTI: -has known hx of recurrent UTIs including most recently earlier this month when he was treated for pyelonephritis with cefdinir -associated sepsis as noted below -leukocytosis resolved -continue IVF, off pressor support -on Zosyn; Vanc added due to noted GPC in blood cx -urine cx: Pseudomonas aeruginosa, sensitivity noted -blood cx: 10/03 bottles growing GPC; repeat set ordered -last urine cx (01/25/20) grew E.coli and Proteus mirabilis -has Ness catheter in place; d/c today Status: Acute (2) Sepsis: -secondary to UTI as noted above -evidenced by lactic acidosis, hypotension, tachycardia, leukocytosis -improving BP, resolved tachycardia, afebrile, resolved leukocytosis and lactic acidosis; continue to monitor vital signs Status: Resolved Qualifiers: Sepsis acute organ dysfunction status: unspecified Sepsis type: sepsis due to unspecified organism Qualified Code(s): A41.9 - Sepsis, unspecified organism (3) Non-STEMI (non-ST elevated myocardial infarction): -noted significant delta on troponin trend -likely demand ischemia secondary to sepsis due to acute infection -telemetry monitoring Status: Acute (4) Urinary retention: -has prior hx of urinary retention -has been following up with Dr. Huerta -Had previously been noted to have mild to moderate hydronephrosis on the right and mild hydronephrosis on the left on previous CT abdomen/pelvis. Renal ultrasound done on 02/08 shows resolved hydronephrosis. -Has Ness catheter in place; d/c today -No noted hydronephrosis on CT abdomen and pelvis done on 02/14 Status: Chronic (5) Hydrocephalus: -has known hx of hydrocephalus s/p RADAR AIR TRAFFIC CONTROLLER shunting -CT head shows stable RADAR AIR TRAFFIC CONTROLLER shunt, no acute abnormalities Status: Chronic Qualifiers: Hydrocephalus type: unspecified Qualified Code(s): G91.9 - Hydrocephalus, unspecified Additional A&P Information -hx of dementia, CVA, is WC bound; f/u with Dr. Morfin who suspects possibility of Lewy body disease versus gradual degenerative disease. On ASA, Plavix -hx of epilepsy; on Depakote, Dilantin -BPH; resume Flomax, previously on hold due to hypotension -GERD; on Pepcid -Hyperlipidemia; on statin -hx of CHF, unknown type, no baseline Echo; hold Lasix for now due to borderline low BP -chronic normocytic anemia; baseline Hg is around 10; H/H stable -documented hx of DM though A1c-5.3 (08/2019); hyperglycemia likely secondary to infection -ST evaluation appreciated; on mechanical soft diet, requires feeding assistance -aspiration precautions -fall precautions -GI ppx with Famotidine -DVT ppx with Lovenox, hold this for now given noted drop in Hg and platelet count; if stable, can resume AC -Dispo: return to [facility]; bed-/WC-bound at baseline -Code status: DNR, ok with intubation if needed -BISHOP-Alexander Darby Attestations Medical Necessity Statement*: Potential discharge today if urine culture finalized. Time Spent in Patient Care: 16 - 35 minutes (>than 50% of time spent in counselling and/or direct pt care on unit) . Coding Level of Care Code Acute Personnel Placement Specialist for g Fwd Exam Comprehensive Diagnoses Acute UTI N39.0 Sepsis A41.9 Sepsis acute organ dysfunction status: unspecified Sepsis type: sepsis due to unspecified organism Non-STEMI (non-ST elevated myocardial infarction) I21.4 Urinary retention R33.9 Hydrocephalus G91.9 Hydrocephalus type: unspecified
[2020-02-18] MEDS: famotidine 20 mg Tablet PO (08:22)
[2020-02-18] MEDS: aspirin 81 mg Chew Tablet PO (08:23)
[2020-02-18] MEDS: atorvastatin 40 mg Tablet 80 MG PO (08:23)
[2020-02-18] MEDS: divalproex DR 250 mg Tablet PO (08:23)
[2020-02-18] MEDS: tamsulosin 0.4 mg Capsule PO (08:23)
[2020-02-18] MEDS: clopidogrel 75 mg Tablet PO (08:23)
[2020-02-18] MEDS: phenytoin ER 100 mg Capsule PO ×2 (08:23→14:01)
--- NOTE | 2020-02-18 09:20 | PC.SOCIAL ---
IMM Page 2 of IMM explained to patient. He verbalizes understanding but is not able to sign. Initialed, dated, and timed and placed in chart. Copy provided to patient.
[2020-02-18] MEDS: acetaminophen 325 mg Tablet 650 MG PO (10:44)
[2020-02-18 11:18] VITALS: BP 100/64; PULSE 83; RESP 16; TEMP 37.1; O2SAT 96
--- NOTE | 2020-02-18 11:41 | PC.CHAP ---
Pastoral Care Encounter/Spiritual Assessment Type of Contact [] Declined inter com installer visit [] Patient/Family/Request visit [] Outpatient visit [] Follow-up visit [] Physician referral [] Code/Alert [x] Routine visit [] Staff referral [] Actively dying [] Patient sleeping [] Family support [] [] Out of room [] Palliative care [] [] Receiving care in room [] Pre-surgical visit [] Trauma [] Long length of stay [] ICU visit [] Other: Relational/Emotional Strength [x] Patient feels connected with others/family/visitors/staff [] Distress [] Loneliness/isolation [] Abandonment Spirituality of Patient [] Person of Unique [] Attends Methodist of their Unique [] Believes in Prayer [] Reads Bible or Adventism materials [x] There are Spiritual issues to be addressed 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 [x] Prayer [x] Active listening [x] Non-anxious presence [x] Spiritual/emotional support [] Crisis/trauma care [] Spiritual counseling [] Bereavement support [] Provided bereavement packet [] Provided Bible/devotional materials [] Provided toy/stuffed animal, coloring book to patient or family member [] Provided Communion [] Anointing/[place] [] Salvation [] Completed spiritual assessment [] Other: Impact on Illness or Injury [] Angry [] Fearful [] Anxious [] Often cries [] Exhaustion [] Unable to work [] Unable to attend rastafari [] Unable to walk/stand [] Unable to read [] Unable to drive [] Unable to eat/drink [] Unable to sleep [] Unable to be with family [] Patient intubated [x] Other: n/a Summary Time spent with patient 5 minutes
--- NOTE | 2020-02-18 13:01 | P.DS_ITS ---
Discharge Providers Date of Admission: 02/15/20 05:17 Date of Discharge: February 18, 2020 Attending Provider at Admission: Jordan Richards Attending Provider at Discharge: Kelly Donnelly MD Primary Care Provider: Lucian Torres MD Diagnoses at Discharge Discharge Diagnosis (1) Acute UTI: Status: Acute Problem details: -has known hx of recurrent UTIs including most recently earlier this month when he was treated for pyelonephritis with cefdinir -associated sepsis as noted below -leukocytosis resolved -continue IVF, off pressor support -on Zosyn; Vanc added due to noted GPC in blood cx -urine cx: Pseudomonas aeruginosa, sensitivity noted -blood cx: 10/03 bottles growing GPC; repeat set prelim negative -last urine cx (01/25/20) grew E.coli and Proteus mirabilis -has Ness catheter in place; d/c today (2) Sepsis: Status: Resolved Problem details: -secondary to UTI as noted above -evidenced by lactic acidosis, hypotension, tachycardia, leukocytosis -improving BP, resolved tachycardia, afebrile, resolved leukocytosis and lactic acidosis; continue to monitor vital signs Qualifiers: Sepsis acute organ dysfunction status: unspecified Sepsis type: sepsis due to unspecified organism Qualified Code(s): A41.9 - Sepsis, unspecified organism (3) Non-STEMI (non-ST elevated myocardial infarction): Status: Acute Problem details: -noted significant delta on troponin trend -likely demand ischemia secondary to sepsis due to acute infection -telemetry monitoring (4) Urinary retention: Status: Chronic Problem details: -has prior hx of urinary retention -has been following up with Dr. Huerta -Had previously been noted to have mild to moderate hydronephrosis on the right and mild hydronephrosis on the left on previous CT abdomen/pelvis. Renal ultrasound done on 02/08 shows resolved hydronephrosis. 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 Morfin who suspects possibility of Lewy body disease versus gradual degenerative disease. On ASA, Plavix -hx of epilepsy; on Depakote, Dilantin -BPH; on Flomax, previously on hold due to hypotension -GERD; on Pepcid -Hyperlipidemia; on statin -hx of CHF, unknown type, no baseline Echo; hold Lasix for now due to borderline low BP -chronic normocytic anemia; baseline Hg is around 10; H/H stable -documented hx of DM though A1c-5.3 (08/2019); hyperglycemia likely secondary to infection -seborrheic dermatitis involving face, neck, anterior chest; will prescribe topical ketoconazole Reason for Visit Reason for Visit: Reason For Visit: respt distress Hospital Course Hospital Course: Patient was initially admitted to ICU due to noted complicated UTI with associated sepsis as evidenced by lactic acidosis, hypoten praveen, tachycardia and leukocytosis. He was started on broad-spectrum IV antibiotic therapy, IV fluid hydration and due to noted hypotension did require pressor support to maintain MAP >65. He was also noted to have troponin elevation with significant delta of -230 which is likely demand ischemia secondary to acute infection with associated sepsis. He did not present or complain of chest pain or discomfort prior to or during his hospital stay. Ness catheter was placed in ER on arrival and has been discontinued prior to discharge with patient able to void independently without difficulty. He was quickly weaned off pressor support with noted stable blood pressure. He was then moved to the floor for continued care pending culture results. Initial set of blood cultures grew gram-positive cocci in 1 out of 4 bottles which is suspicious for contamination as repeat set of blood cultures have been prelim negative. Urine cultures have grown pseudomonas aeruginosa, and based on sensitivity patient will be discharged on a course of oral Levaquin to complete the treatment course. He has been afebrile throughout his hospital course, hemodynamically stable, tolerating oral intake without difficulty, has had good urine output consistently throughout his hospital stay. He will need to continue to follow-up with his primary care physician and is advised to seek medical attention immediately should any of his symptoms recur. He will be discharged back to [facility] this afternoon. Of note patient has notable intense erythema and scaling of skin involving face, anterior neck and anterior upper chest so will prescribe topical ketoconazole for treatment of seborrheic dermatitis. Discharge Summary: -Patient to follow up with primary care physician within 1 week or per SNF -Patient to continue to follow up with Dr. Morfin -Patient to continue to follow up with Dr. Huerta Physical Exam Const: COMMON NORMALS: no acute distress and patient oriented x3 GENERAL APPEARANCE: cooperative, comfortable, frail appearing and appears older than stated age; not ill appearing ORIENTATION/CONSCIOUSNESS: Yes awake HENMT: COMMON NORMALS: normocephalic, atraumatic, hearing grossly normal bilaterally and moist oral mucous membranes HEAD & SCALP: normocephalic and atraumatic Eye: COMMON NORMALS: Equal, round and reactive pupils present, EOMs intact bilaterally and conjunctivae normal CONJUNCTIVA: Yes conjunctivae normal PUPIL: Yes Equal, round and reactive pupils present Neck/C-Spine: COMMON NORMALS: full ROM GENERAL: Yes normal visual inspection and Yes trachea midline Resp: COMMON NORMALS: normal respiratory effort, No retractions, No use of accessory muscles and clear to auscultation bilaterally EFFORT & INSPECTION: Yes able to speak in complete sentences, Yes symmetric chest movement and No tachypneic AUSCULTATION: clear to auscultation bilaterally Cardio: COMMON NORMALS: regular rate, regular rhythm, S1 normal heart sound present, S2 normal heart sound present and No murmurs present (Cardio) RATE: regular rate RHYTHM: regular rhythm HEART SOUNDS: S1 normal heart sound present and S2 normal heart sound present GI: COMMON NORMALS: Normal to inspection, nondistended, normoactive bowel sounds present, Soft to palpation and non-tender PALPATION: Yes Soft to palpation : BLADDER/KIDNEY EXAM: Yes catheter in place Extremity: COMMON NORMALS: normal to inspection, full ROM, no clubbing, cyanosis or edema and no pedal edema Neuro: COMMON NORMALS: patient oriented x3, moves all extremities, no focal motor deficits and no sensory deficits noted Psych: COMMON NORMALS: mental status grossly normal, Normal thought process present, cooperative, normal affect and speech normal SPEECH: Yes normal speech THOUGHT PROCESS: Normal thought process present Skin: COMMON NORMALS: no jaundice, no petechiae and no mottling GENERAL SKIN EXAM: crusts (seborrheic dermatitis involving face, anterior chest), dry skin and erythema (erythema and scaling of face) Urinary Catheter Management^: Ness: Cath Placed During This Visit: yes Urethral Indwelling: Yes Reason for Continuing Indwelling Catheter: Chronic Indwelling Urinary Catheter on Admission Urinary Catheter Date of Insertion: 02/15/20 Urinary Catheter Time of Insertion: 02:18 Discharge Data Data Completed and Pending: Completed Studies During Hospitalization Category Date Time Status CT abdomen pelvis w con* [id number] Stat Cat Scan 02/15/20 02:[address] head wo con* 7 0450 Urgent Cat Scan 02/15/20 02:45 Completed XR chest 1V mecca ble [id number] Stat Exams 02/15/20 01:48 Completed Pending at discharge Category Date Time Status Blood Culture AM LABS Lab 02/16/20 07:22 Results Blood Culture Sta t Lab 02/15/20 02:55 Results Vancomycin Trough Timed Lab 02/19/20 00:30 Ordered Labs from last 24 hours 02/15/20 02:21 Urine Color Yellow Urine Appearance Cloudy Urine pH 5 Ur Specific Gravit y 1.025 Urine Protein 2+ H Urine Glucose (UA) Trace H Urine Ketones Negative Urine Blood 3+ H Urine Nitrate Negative Urine Bilirubin Neg Urine Urobilinogen Norm Ur Leukocyte Lucrecia ase 2+ H Urine RBC 15-25 H Urine WBC Too numerous to c nt H Ur Squamous Epith Cells 0-4 H Urine Bacteria 1+ H Coarse Granular Ca sts 0-4 H Vitals: Last Vital Signs Temp 98.7 F 02/18/20 11:18 Pulse 83 02/18/20 11:18 Resp 16 02/18/20 11:18 BP 100/64 02/18/20 11:18 Pulse Ox 96 02/18/20 11:18 Discharge Plan Discharge Patient Disposition: [facility]fer [facility] Condition: Stable Prescriptions: New furosemide 40 mg Tablet 40 mg PO DAILY 30 Days Qty: 30 RF: 0 tamsulosin 0.4 mg Capsule 0.4 mg PO DAILY 30 Days Qty: 30 RF: 0 levofloxacin 750 mg tablet 750 mg PO DAILY 7 Days Qty: 7 RF: 0 ketoconazole 2 % cream 1 applic TOPICAL BID 28 Days Qty: 30 RF: 1 Continued ferrous sulfate 325 mg (65 mg iron) tablet 325 mg PO DAILY RF: 0 omeprazole 20 mg capsule,delayed release(DR/EC) 20 mg PO DAILY RF: 0 phenytoin sodium extended [Dilantin Extended] 100 mg capsule 200 mg PO TID RF: 0 acetaminophen 325 mg Tablet 325 mg PO Q4H PRN (Reason: Pain) RF: 0 sennosides-docusate sodium [Senna-S] 8.6-50 mg Tablet 1 tab-cap PO BID PRN (Reason: Constipation) RF: 0 magnesium hydroxide [Milk of Magnesia] 400 mg/5 mL Suspension See Rx Instructions .ROUTE .COMPLEX PRN (Reason: Constipation) RF: 0 bisacodyl 10 mg Suppository 10 mg WI DAILY PRN (Reason: Constipation) RF: 0 Enema 19-7 gram/118 mL Enema 118 ml WI DAILY PRN (Reason: Constipation) RF: 0 polyethylene glycol 3350 [Miralax] 17 gram/dose Powder 17 g PO DAILY PRN (Reason: Constipation) RF: 0 TwoCal HN 0.08-2 gram-kcal/mL Liquid 90 ea PO TID RF: 0 potassium chloride 20 mEq Tablet Extended Release 20 meq PO DAILY RF: 0 clopidogrel 75 mg Tablet 75 mg PO DAILY Qty: 30 RF: 0 aspirin 81 mg tablet,chewable 81 mg PO DAILY Qty: 30 RF: 0 atorvastatin 40 mg tablet 80 mg PO DAILY Qty: 0 RF: 0 Vitamin C 1,000 mg Tablet 1,000 mg PO BID RF: 0 valproic acid 250 mg Capsule 500 mg PO BID RF: 0 methenamine hippurate 1 gram Tablet 1 g PO BID RF: 0 ProAir HFA 90 mcg/actuation Hfa Aerosol Inhaler 2 puff INHALATION TID PRN (Reason: Shortness Of Breath) RF: 0 Discontinued furosemide 80 mg Tablet 80 mg PO DAILY RF: 0 Discharge Orders: Discharge Order (Routine); Ordered 02/18/20 Ordered By: Kelly Donnelly Referrals: [facility] [Outside] Lucian Torres MD [Primary Care Provider] - 4-7 days (Post hospital discharge follow up. Treated for complicated UTI. ) Discharge Diet: Cardiac Discharge Activity: Resume usual activity Patient Instructions: Furosemide (By mouth), Levofloxacin (By mouth), Tamsulosin (By mouth), Myocardial Infarction (DC), Urinary Tract Infection in Men (DC), Sepsis (DC) Discharge Attestations Time Spent in Discharge Care*: greater than 30 min Specific Discharge Activities: Specific discharge activities: educating patient, discussing with case picker/social workers/dc planners, documenting/other paperwork and evaluating patient/reviewing data Status at Discharge: Cognitive status at discharge: cognitively intact , Behavioral status at discharge: cooperative , Functional status at discharge: bed bound Overall status at discharge: patient is back to baseline Quality Metrics Clinical Quality Measures During this hospital stay, did patient experience: None Coding Level of Care Code Acute Cereal Supervisor for Chg Fwd Diagnoses Acute UTI N39.0 Sepsis A41.9 Sepsis acute organ dysfunction status: unspecified Sepsis type: sepsis due to unspecified organism Non-STEMI (non-ST elevated myocardial infarction) I21.4 Urinary retention R33.9 Hydrocephalus G91.9 Hydrocephalus type: unspecified
[2020-02-18 13:19] VITALS: BP 100/64; PULSE 83; RESP 16; TEMP 37.1; O2SAT 96
[2020-02-18] MEDS: levoFLOXacin 750 mg Tablet PO (13:27)
--- NOTE | 2020-02-18 13:30 | PC.NURSE ---
morales removed with 10mL ns removed from balloon, pt tolerated well.
[2020-02-18 15:18] VITALS: BP 95/62; PULSE 71; RESP 16; TEMP 37.3; O2SAT 96
== END 2020-02-18 16:48 | disposition skilled nursing facility (03) | DRG 871 ==
LOC: ER 06:27 → ICU 06:37 → MEDSURG 02-16 14:42
PROVIDERS: Emergency Medicine; Student in an Organized Health Care Education/Training Program; Admitting Provider Internal Medicine; Family Provider Family Medicine; PCP Family Medicine; Visit Provider Family Medicine
DX: A41.9 Sepsis, unspecified organism (principal); R65.21 Severe sepsis with septic shock; G93.41 Metabolic encephalopathy; I21.A1 Myocardial infarction type 2; N39.0 Urinary tract infection, site not specified; G91.9 Hydrocephalus, unspecified; E87.2 Acidosis; F03.90 Unspecified dementia, unspecified severity, without behavioral disturbance, psychotic disturbance, mood disturbance, and anxiety; R33.9 Retention of urine, unspecified; Z66 Do not resuscitate; K21.9 Gastro-esophageal reflux disease without esophagitis; E78.5 Hyperlipidemia, unspecified; Z86.73 Personal history of transient ischemic attack (TIA), and cerebral infarction without residual deficits; Z99.3 Dependence on wheelchair; D64.9 Anemia, unspecified; N40.0 Benign prostatic hyperplasia without lower urinary tract symptoms; L21.8 Other seborrheic dermatitis; I50.9 Heart failure, unspecified; B96.5 Pseudomonas (aeruginosa) (mallei) (pseudomallei) as the cause of diseases classified elsewhere; Z79.82 Long term (current) use of aspirin; Z79.02 Long term (current) use of antithrombotics/antiplatelets; G40.909 Epilepsy, unspecified, not intractable, without status epilepticus; I25.10 Atherosclerotic heart disease of native coronary artery without angina pectoris; F20.9 Schizophrenia, unspecified; E11.51 Type 2 diabetes mellitus with diabetic peripheral angiopathy without gangrene; R09.02 Hypoxemia
CPT/HCPCS: 12345; 36415; 36416; 36600; 51702; 70450; 71045; 74177; 80048; 80051; 80053; 80202; 80306; 81001; 82140; 82810; 82962; 83605; 83735; 83986; 84484; 85025; 85610; 87040; 87077; 87086; 87186; 87205; 92610; 93005; 94640; 94664; 96372; 96375; 99284; J1650; J2543; J3370; J3475; J3490; J7030; J7050; Q9967

== ENCOUNTER 2020-08-04 08:15 | Inpatient (IN) | payer MEDICARE, MEDICAID, SELFPAY ==
[2020-08-04] VITALS (22 sets, daily range): BP systolic 102–160; BP diastolic 62–90; PULSE 90–135; RESP 19–37; TEMP 36.5–36.7; O2SAT 90–100; BMI 23.6
--- NOTE | 2020-08-04 08:20 | XR_ITS ---
WS: [id number] XR chest 1V portable [id number] REASON FOR EXAM: dyspnea/cough FINDINGS: The chest is relatively unchanged compared to previous examination of 02/15/2020. 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 Areas of atelectasis are seen in the right lower lung. The left lung is clear. Ventriculoperitoneal shunt over the right neck and chest and upper abdomen is identified. The tip mildred ears to be within the right upper quadrant. There is also an additional small fragment of shunt tubin g in the right upper abdomen. XR/XR chest 1V portable [id number] IMPRESSION: Stable abnormal chest with no definite acute abnormality.
--- NOTE | 2020-08-04 08:22 | ECG_ITS ---
[facility] Test Date: 2020-08-04 Pat Name: Sammy Anderson Department: Room: Gender: Male Social Media Community Manager: : 1955 Requested By: Artur Paul Order Number: [id number] Reading MD: MIKHAIL MILLER Measurements Intervals [place] Rate: 138 P: NH: -1 QRS: 40 QRSD: 85 T: 62 QT: 288 QTc: 437 Interpretive Statements Sinus rhythm Normal axis No significant ST-T ST changes. Electronically Signed On 08-05-2020 19:30:35 SIGNAL OPERATOR by MIKHAIL MILLER [id number]
[2020-08-04] MEDS: LORazepam 2 mg/mL INJ 1 mL ×2 (08:27)
[2020-08-04 08:30] LABS: Basophils # 0.1 10^3/uL (0.0-0.1); Basophils % 0.6 %; Eosinophils # 0.3 10^3/uL (0.0-0.8); Eosinophils % 2.9 %; Hematocrit 41.9 % (42.0-52.0); Hemoglobin 13.7 g/dL (11.7-16.6); Lymphocytes # 4.3 10^3/uL (0.8-4.8); Lymphocytes % 44.8 %; Mean Corpuscular HGB Conc 32.7 g/dL (30.0-36.0); Mean Corpuscular Hemoglobin 30.9 pg (28.0-34.0); Mean Corpuscular Volume 94.4 fL (80-94); Mean Platelet Volume 9.6 fL (7.4-10.4); Monocytes # 0.9 10^3/uL (0.2-0.9); Monocytes % 9.7 %; Neutrophils # 3.89 10^3/uL (1.8-7.7); Neutrophils % 40.8 %; Nucleated Red Blood Cells % 0 %; Platelet Count 161 10^3/cmm (130-400); Red Blood Count 4.44 10^6/uL (4.1-5.3); Red Cell Distribution Width 13.1 % (12.1-15.1); White Blood Count 9.5 10^3/uL (4.0-10.0)
--- NOTE | 2020-08-04 08:34 | CT_ITS ---
WS: [id number] CT HEAD TECHNIQUE: Noncontrast CT of the head obtained from the skullbase to the vertex. CLINICAL INFORMATION: seizure, r/o bleed COMPARISON: February 15, 2020 DLP: 885.[address] scans at [facility] use at least one of these dose optimization techniques: automat ed exposure control; mA and/or kV adjustment per patient size (includes targeted exams where dose is matched to clinical indication); or iterative reconstruction. FINDINGS: No evidence of intracranial hemorrhage or mass effect. Ventricles system is decompressed. No hydrocep halus. Right frontal shunt catheter with tip along the left frontal horn. Left parietal shunt cathete r with tip in the right frontal horn. Multiple prior bert holes. Moderate to advanced small vessel changes. Mild parenchymal volume loss. Multiple chronic infarcts in volving the periventricular white matter and genu of the corpus callosum, right parasagittal parietal occipital lobes, and extensive chronic infarcts in the bilateral cerebellum. Brainstem atrophy is un changed. Paranasal sinuses are well aerated. Mild mucosal thickening in the ethmoid air cells. Mastoi d air cells are well aerated. CT/CT head wo con* [id number] IMPRESSION: 1. No evidence of intracranial hemorrhage or mass effect. 2. Ventricular system is decompressed. No hydrocephalus. Stable shunt catheter s as described above. 3. Multiple chronic infarcts described above worse involving the right parieta l occipital lobes and cerebellum right greater than left. 4. Stable wallerian degeneration and brainstem atrophy. 5. No acute intracranial findings.
[2020-08-04 08:50] LABS: Troponin(5th) Baseline 21 ng/L (0-15)
--- NOTE | 2020-08-04 08:57 | ED_ITS ---
HPI - Seizure General: Chief Complaint: Seizure Stated Complaint: SEIZURE LIKE ACTIVITY/ SVT Time Seen by Provider: 08/04/20 08:19 History of Present Illness: HPI Narrative: This patient is a 64-year-old gentleman who is a resident of a local [facility]. EMS was called for seizure activity that is been going on since about 7:00 this morning. Patient has a history of seizures as well as a history of stroke, hydrocephalus, AUTOMOTIVE REFINISH TECHNICIAN shunt. He was also markedly tachycardic and EMS interpreted this as SVT. They attempted adenosine without any change in the rhythm. On arrival the patient was actively seizing. We were not able to obtain any history from the patient. complaint: seizure Onset (ago): hour(s) (1) Description of Episode: loss of consciousness and tonic-clonic movement Witnessed: Yes - by Other (long term staff) Trauma: No Seizure History: Yes Place: Home (long term) Treatments prior to arrival: other (Adenosine) Review of Systems General: Reports: ROS unobtainable due to medical condition and ROS unobtainable due to mental status [facility] ED PFSH: Medical History (Updated 08/06/20 @ 00:01 by ) Anemia Congestive heart failure Coronary artery disease Dementia Dermatitis, seborrheic involving face, neck, anterior chest Diabetes mellitus Epilepsy GERD (gastroesophageal reflux disease) Hydrocephalus -has known hx of hydrocephalus s/p AUTOMOTIVE REFINISH TECHNICIAN shunting -CT head shows stable AUTOMOTIVE REFINISH TECHNICIAN shunt, no acute abnormalities Hyperlipidemia Peripheral vascular disease Schizophrenia TIA (transient ischemic attack) Urinary retention -has prior hx of urinary retention -has been following up with Dr. Huerta -Had previously been noted to have mild to moderate hydronephrosis on the right and mild hydronephrosis on the left on previous CT abdomen/pelvis. Renal ultrasound done on 02/08 shows resolved hydronephrosis. -No noted hydronephrosis on CT abdomen and pelvis done on 02/14 Surgical History AUTOMOTIVE REFINISH TECHNICIAN (ventriculoperitoneal) shunt status Family History Unknown No problems noted. Social History Smoking and tobacco status: unknown if ever smoked Alcohol intake: never Housing: Care Home Marital status: Single Current occupational status: retired History of recent travel: No Current gender identity: Male Physical Exam 2 HENMT: HEAD & SCALP: normal to inspection FACE & SINUS: normal facial exam Eye: GENERAL EYE: appearance normal, both eyes and all related structures and other (Eyes deviated upward and to the right) Neck/C-Spine: COMMON NORMALS: supple and no JVD Chest: COMMONS NORMALS: normal inspection of the chest Resp: EFFORT & INSPECTION: Yes tachypneic AUSCULTATION: diminished lung sounds Cardio: COMMON NORMALS: no JVD, regular rhythm and No murmurs present (Cardio) RATE: tachycardic RHYTHM: regular rhythm GI: COMMON NORMALS: Normal to inspection, nondistended, normoactive bowel sounds present, Soft to palpation and non-tender INSPECTION: Yes normal to inspection AUSCULTATION: Yes normoactive bowel sounds PALPATION: Yes Soft to palpation Back/Pelvis: COMMON NORMALS: thoracic and lumbar spine normal to inspection Extremity: COMMON NORMALS: normal to inspection Neuro: SENSORIUM/ORIENTATION: Yes other (Actively seizing. Right side is showing evidence of prior stroke with hemiplegia. Left side is actively seizing. There is facial twitching and eye deviation.) Psych: COMMON NORMALS: mental status grossly normal, cooperative and normal affect Skin: COMMON NORMALS: no rashes or lesions noted and turgor normal GENERAL SKIN EXAM: no rashes or lesions noted and turgor normal Course ED course: This patient was actively seizing on arrival. He was given Ativan and required 2 doses of 2 mg each. He was also given Keppra, 1000 mg. The Ativan and the postictal state contributed to him being quite somnolent. He was able to protect his airway with assistance of a nasal trumpet. He was put on a BiPAP due to weak respirations. As he was still quite somnolent after several hours in the ER he will be admitted to the ICU for further management. Vital Signs: Vital signs: Vital Signs Temperature 103.0 F H 08/05/20 22:46 Pulse Rate 92 08/05/20 22:46 Respiratory Rate 14 08/05/20 22:46 Blood Pressure 109/69 08/05/20 22:46 Pulse Oximetry 97 08/05/20 22:46 MDM - Seizure Lab Data: Labs: Lab Results 08/04/20 08/04/2020 Range/Units 07:56 07:56 07:56 WBC 9.5 (4.0-10.0) 10^3/ uL RBC 4.44 (4.1-5.3) 10^6/u L Hgb 13.7 (11.7-16.6) g/dL Hct 41.9 L (42.0-52.0) % MCV 94.4 H (80-94) fL MCH 30.9 (28.0-34.0) pg MCHC 32.7 (30.0-36.0) g/dL RDW 13.1 (12.1-15.1) % Plt Count 161 (130-400) 10^3/c mm MPV 9.6 (7.4-10.4) fL Neut % (Auto) 40.8 % Lymph % (Auto) 44.8 % [place] % (Auto) 9.7 % Eos % (Auto) 2.9 % Baso % (Auto) 0.6 % Neut # (Auto) 3.89 (1.8-7.7) 10^3/u L Lymph # (Auto) 4.3 (0.8-4.8) 10^3/u L [place] # (Auto) 0.9 (0.2-0.9) 10^3/u L Eos # (Auto) 0.3 (0.0-0.8) 10^3/u L Baso # (Auto) 0.1 (0.0-0.1) 10^3/u L Nucleated RBC % (a uto) 0 % Nucleated RBCs # 0.0 /100WBC Specimen Type Sample Site ABG pH (7.35-7.45) ABG pCO2 (35-45) mmHg ABG pO2 (80.0-100.0) mmH g ABG HCO3 (22-26) mmol/L ABG O2 Saturation ABG Base Excess (-2.0-2.0) mmol/ L Reynaldo Test A-a O2 Gradient Hematocrit (42-52) % Hgb O2 Saturation (95-100) % Carboxyhemoglobin (0.4-20.1) %THgb Methemoglobin (0.4-1.5) % Total Hemoglobin (14-18) g/dL Ionized Calcium (1.1-1.4) mmol/L O2 Delivery Device O2 Liters/Min % FiO2 % Maintenance Operator ID Sodium 141 (136-145) mmol/L Potassium 4.5 (3.5-5.1) mmol/L Chloride 102 (98-107) mmol/L Carbon Dioxide 23 (22-29) mmol/L Anion Gap 20.5 H (5-19) BUN 14 (8-23) mg/dL Creatinine 0.6 L (0.7-1.2) mg/dL GFR Calculation 136.5 H (90-130) mL/min Glucose 139 H (65-115) mg/dL Calculated Osmolal ity 295 (285-295) mOsm/k g Lactic Acid (0.5-2.2) mmol/L Calcium 8.8 (8.5-10.5) mg/dL Magnesium 2.1 (1.7-2.3) mg/dL Total Bilirubin 0.2 (0.15-1.2) mg/dL AST 48 H (0-40) U/L ALT 64 H (0-41) U/L Alkaline Phosphata se 143 H (40-130) IU/L Creatine Kinase 73 (39-308) U/L Troponin T Baselin e 21 H (0-15) ng/L Troponin T 120 Min citizen [place] (0-15) ng/L Delta Troponin T (0-10) ABS# Total Protein 7.5 (6.6-8.7) g/dL Albumin 4.1 (3.5-5.2) g/dL Globulin 3.4 (1.3-4.6) g/dL TSH 2.49 (0.27-4.20) uIU/ mL Free T4 1.24 (0.82-1.77) ng/d L Urine Color (Yellow) Urine Appearance (CLEAR) Urine pH (5-7) Ur Specific Gravit y (1.005-1.030) Urine Protein (Negative) Urine Glucose (UA) (Normal) Urine Ketones (Negative) Urine Blood (Negative) Urine Nitrate (Negative) Urine Bilirubin (Negative) Urine Urobilinogen (Negative) mg/dL Ur Leukocyte Lucrecia ase (Negative) Urine RBC (0-2) /hpf Urine WBC (0-5) /hpf Ur Squamous Epith Cells (0-5) /hpf Amorphous Sediment Urine Bacteria (NONE) /hpf Hyaline Casts /lpf Urine Mucus /hpf Phenytoin (10-20) ug/mL Valproic Acid (50-100) ug/mL 08/04/20 08/04/20 08/04/20 Range/Units 07:56 08:32 09:05 WBC (4.0-10.0) 10^3/ uL RBC (4.1-5.3) 10^6/u L Hgb (11.7-16.6) g/dL Hct (42.0-52.0) % MCV (80-94) fL MCH (28.0-34.0) pg MCHC (30.0-36.0) g/dL RDW (12.1-15.1) % Plt Count (130-400) 10^3/c mm MPV (7.4-10.4) fL Neut % (Auto) % Lymph % (Auto) % [place] % (Auto) % Eos % (Auto) % Baso % (Auto) % Neut # (Auto) (1.8-7.7) 10^3/u L Lymph # (Auto) (0.8-4.8) 10^3/u L [place] # (Auto) (0.2-0.9) 10^3/u L Eos # (Auto) (0.0-0.8) 10^3/u L Baso # (Auto) (0.0-0.1) 10^3/u L Nucleated RBC % (a uto) % Nucleated RBCs # /100WBC Specimen Type Arterial Sample Site Radial, right ABG pH 7.09 L* (7.35-7.45) ABG pCO2 93.6 H* (35-45) mmHg ABG pO2 196.0 H (80.0-100.0) mmH g ABG HCO3 28.5 H (22-26) mmol/L ABG O2 Saturation 99.3 ABG Base Excess -3.7 L (-2.0-2.0) mmol/ L Reynaldo Test Pos A-a O2 Gradient Not Reportable Hematocrit 40.1 L (42-52) % Hgb O2 Saturation 97.4 (95-100) % Carboxyhemoglobin 0.8 (0.4-20.1) %THgb Methemoglobin 1.2 (0.4-1.5) % Total Hemoglobin 13.1 L (14-18) g/dL Ionized Calcium 1.2 (1.1-1.4) mmol/L O2 Delivery Device Nrb O2 Liters/Min 15.0 % FiO2 % Maintenance Operator ID glc Sodium 144.0 H (136-145) mmol/L Potassium 3.9 (3.5-5.1) mmol/L Chloride (98-107) mmol/L Carbon Dioxide (22-29) mmol/L Anion Gap (5-19) BUN (8-23) mg/dL Creatinine (0.7-1.2) mg/dL GFR Calculation (90-130) mL/min Glucose 123.0 H (65-115) mg/dL Calculated Osmolal ity (285-295) mOsm/k g Lactic Acid 3.5 H (0.5-2.2) mmol/L Calcium (8.5-10.5) mg/dL Magnesium (1.7-2.3) mg/dL Total Bilirubin (0.15-1.2) mg/dL AST (0-40) U/L ALT (0-41) U/L Alkaline Phosphata se (40-130) IU/L Creatine Kinase (39-308) U/L Troponin T Baselin e (0-15) ng/L Troponin T 120 Min citizen [place] (0-15) ng/L Delta Troponin T (0-10) ABS# Total Protein (6.6-8.7) g/dL Albumin (3.5-5.2) g/dL Globulin (1.3-4.6) g/dL TSH (0.27-4.20) uIU/ mL Free T4 (0.82-1.77) ng/d L Urine Color (Yellow) Urine Appearance (CLEAR) Urine pH (5-7) Ur Specific Gravit y (1.005-1.030) Urine Protein (Negative) Urine Glucose (UA) (Normal) Urine Ketones (Negative) Urine Blood (Negative) Urine Nitrate (Negative) Urine Bilirubin (Negative) Urine Urobilinogen (Negative) mg/dL Ur Leukocyte Lucrecia ase (Negative) Urine RBC (0-2) /hpf Urine WBC (0-5) /hpf Ur Squamous Epith Cells (0-5) /hpf Amorphous Sediment Urine Bacteria (NONE) /hpf Hyaline Casts /lpf Urine Mucus /hpf Phenytoin 7.9 L (10-20) ug/mL Valproic Acid 41.7 L (50-100) ug/mL 08/04/20 08/04/20 08/04/20 Range/Units 09:59 10:05 11:15 WBC (4.0-10.0) 10^3/ uL RBC (4.1-5.3) 10^6/u L Hgb (11.7-16.6) g/dL Hct (42.0-52.0) % MCV (80-94) fL MCH (28.0-34.0) pg MCHC (30.0-36.0) g/dL RDW (12.1-15.1) % Plt Count (130-400) 10^3/c mm MPV (7.4-10.4) fL Neut % (Auto) % Lymph % (Auto) % [place] % (Auto) % Eos % (Auto) % Baso % (Auto) % Neut # (Auto) (1.8-7.7) 10^3/u L Lymph # (Auto) (0.8-4.8) 10^3/u L [place] # (Auto) (0.2-0.9) 10^3/u L Eos # (Auto) (0.0-0.8) 10^3/u L Baso # (Auto) (0.0-0.1) 10^3/u L Nucleated RBC % (a uto) % Nucleated RBCs # /100WBC Specimen Type Arterial Sample Site Brachial, right ABG pH 7.23 L (7.35-7.45) ABG pCO2 70.8 H* (35-45) mmHg ABG pO2 139.0 H (80.0-100.0) mmH g ABG HCO3 29.4 H (22-26) mmol/L ABG O2 Saturation ABG Base Excess 0.1 (-2.0-2.0) mmol/ L Reynaldo Test N/a A-a O2 Gradient Hematocrit 39.9 L (42-52) % Hgb O2 Saturation (95-100) % Carboxyhemoglobin (0.4-20.1) %THgb Methemoglobin (0.4-1.5) % Total Hemoglobin (14-18) g/dL Ionized Calcium (1.1-1.4) mmol/L O2 Delivery Device Bipap O2 Liters/Min % FiO2 36.0 % Maintenance Operator ID glc Sodium (136-145) mmol/L Potassium (3.5-5.1) mmol/L Chloride (98-107) mmol/L Carbon Dioxide (22-29) mmol/L Anion Gap (5-19) BUN (8-23) mg/dL Creatinine (0.7-1.2) mg/dL GFR Calculation (90-130) mL/min Glucose (65-115) mg/dL Calculated Osmolal ity (285-295) mOsm/k g Lactic Acid (0.5-2.2) mmol/L Calcium (8.5-10.5) mg/dL Magnesium (1.7-2.3) mg/dL Total Bilirubin (0.15-1.2) mg/dL AST (0-40) U/L ALT (0-41) U/L Alkaline Phosphata se (40-130) IU/L Creatine Kinase (39-308) U/L Troponin T Baselin e (0-15) ng/L Troponin T 120 Min [place] 73.67 H (0-15) ng/L Delta Troponin T 52.67 H* (0-10) ABS# Total Protein (6.6-8.7) g/dL Albumin (3.5-5.2) g/dL Globulin (1.3-4.6) g/dL TSH (0.27-4.20) uIU/ mL Free T4 (0.82-1.77) ng/d L Urine Color Yellow (Yellow) Urine Appearance Clear (CLEAR) Urine pH 6 (5-7) Ur Specific Gravit y 1.015 (1.005-1.030) Urine Protein Trace (Negative) Urine Glucose (UA) Norm (Normal) Urine Ketones Negative (Negative) Urine Blood Neg (Negative) Urine Nitrate Negative (Negative) Urine Bilirubin Neg (Negative) Urine Urobilinogen Neg (Negative) mg/dL Ur Leukocyte Lucrecia ase Negative (Negative) Urine RBC 0-4 H (0-2) /hpf Urine WBC 25-40 H (0-5) /hpf Ur Squamous Epith Cells 0-4 H (0-5) /hpf Amorphous Sediment Not Reportable Urine Bacteria Trace (NONE) /hpf Hyaline Casts 0-4 H /lpf Urine Mucus 1+ /hpf Phenytoin (10-20) ug/mL Valproic Acid (50-100) ug/mL Discharge Plan Discharge Patient Disposition: Admitted As Inpatient Admit Provider: Kelly Donnelly Condition: Stable Coding Level of Care Code ED Pipe Liner for Chg Fwd Exam Comprehensive
--- NOTE | 2020-08-04 08:57 | PC.NURSE ---
pt to ct by stretcher with tech
[2020-08-04 09:00] LABS: Alanine Aminotransferase 64 U/L (0-41); Albumin Level 4.1 g/dL (3.5-5.2); Alkaline Phosphatase 143 IU/L (40-130); Anion Gap 20.5 (5-19); Aspartate Amino Transferase 48 U/L (0-40); Blood Urea Nitrogen 14 mg/dL (8-23); Calcium 8.8 mg/dL (8.5-10.5); Carbon Dioxide 23 mmol/L (22-29); Chloride 102 mmol/L (98-107); Creatine Phosphokinase 73 U/L (39-308); Globulin 3.4 g/dL (1.3-4.6); Glomerular Filtration Rate 136.5 mL/min (90-130); Glucose 139 mg/dL (65-115); Magnesium 2.1 mg/dL (1.7-2.3); Osmolality Calculated 295 mOsm/kg (285-295); Potassium 4.5 mmol/L (3.5-5.1); Sodium 141 mmol/L (136-145); Thyroid Stimulating Hormone 2.49 uIU/mL (0.27-4.20); Total Bilirubin 0.2 mg/dL (0.15-1.2); Total Protein 7.5 g/dL (6.6-8.7)
[2020-08-04 09:02] LABS: Lactic Sepsis W/Reflex 3.5 mmol/L (0.5-2.2)
[2020-08-04 09:15] LABS: Arterial Blood Gas Hematocrit 40.1 % (42-52); Base Excess ABG -3.7 mmol/L (-2.0-2.0); Blood Gas Allen Test Pos; Blood Gas Operator Identificat glc; Blood Gas Sample Site Radial, right; Blood Gas Sample Type Arterial; Carboxyhemoglobin 0.8 %THgb (0.4-20.1); HCO3 ABG 28.5 mmol/L (22-26); HGB O2 Sat 97.4 % (95-100); Ionized Calcium Level - ABG 1.2 mmol/L (1.1-1.4); Methemoglobin 1.2 % (0.4-1.5); Oxygen Device NRB; Oxygen Saturation ABG 99.3; Potassium Level - ABG 3.9 mmol/L (3.5-5.0); Total Hemoglobin 13.1 g/dL (14-18)
[2020-08-04 09:17] LABS: ABG PCO2 93.6 mmHg (35-45); ABG PH Result 7.09 (7.35-7.45)
--- NOTE | 2020-08-04 10:17 | PC.NURSE ---
EKG done at 1015 and shown to ER doctor
--- NOTE | 2020-08-04 10:22 | ECG_ITS ---
[facility] Test Date: 2020-08-04 Pat Name: Sammy Anderson Department: Room: Gender: Male Nursery Supervisor: : [id number] Requested By: Artur Paul Order Number: [id number] Reading MD: MIKHAIL MILLER Measurements Intervals [place] Rate: 103 P: 49 VT: 156 QRS: 63 QRSD: 88 T: 89 QT: 328 QTc: 431 Interpretive Statements SINUS TACHYCARDIA NONSPECIFIC T-WAVE ABNORMALITY ABNORMAL RHYTHM ECG Compared to ECG 08/04/2020 08:21:44 Atrial flutter no longer present T-wave abnormality still present Electronically Signed On 08-05-2020 19:34:48 INTERNET SITE DESIGNER by MIKHAIL MILLER [email or web address] ([email or web address]) montgomery va medical centerOPX [email or web address] ridge medical [id number]
[2020-08-04 10:28] LABS: Reflex Lactate Order REFLEX LACTIC ORDERD
[2020-08-04 10:39] LABS: Troponin 5 2HR 73.67 ng/L (0-15)
[2020-08-04 10:42] LABS: Add Urine Microscopic? YES; Bacteria Urine TRACE /hpf; Bilirubin Urine Neg (Negative); Blood Urine Neg (Negative); Glucose Urine UA Norm (Normal); Hyaline Casts Urine 0-4 /lpf; Ketones Urine Negative (Negative); Leukocyte Esterase Urine Negative (Negative); Mucus Urine 1+ /hpf; Nitrate Urine Negative (Negative); Protein Urine Trace (Negative); RBC Urine 0-4 /hpf (0-2); Specific Gravity, Urine 1.015 (1.005-1.030); Squamous Epithelial Cell Urine 0-4 /hpf (0-5); Urine Appearance Clear (CLEAR); Urine Color Yellow (Yellow); Urobilinogen Urine Neg (Negative); WBC Urine 25-40 /hpf (0-5); pH Urine 6 (5-7)
[2020-08-04 10:43] LABS: Add Urine Culture? Yes
[2020-08-04 11:01] LABS: Troponin 5 2HR Delta 52.67 ABS# (0-10)
[2020-08-04 11:24] LABS: ABG PH Result 7.23 (7.35-7.45); Arterial Blood Gas Hematocrit 39.9 % (42-52); Base Excess ABG 0.1 mmol/L (-2.0-2.0); Blood Gas Operator Identificat glc; Blood Gas Sample Site Brachial, right; Blood Gas Sample Type Arterial; HCO3 ABG 29.4 mmol/L (22-26); Oxygen Device BIPAP
--- NOTE | 2020-08-04 12:11 | P.HP_ITS ---
Providers/Chief Complaint Admitting Physician: Kelly Donnelly MD Primary Care Provider: Lucian Torres MD Chief Complaint: SEIZURE LIKE ACTIVITY/ SVT History of Present Illness Sammy Anderson is a 64 year old male with PMHx noted below, presents via EMS from [place] following seizure-like DVT that started at the facility around 7 AM this morning. Patient is currently postictal and on BiPAP during my examination in the ER so history obtained from review of medical record, ED rep ort and conversation with patient's care nurse Clotilde. Nurse states that around 7 AM while patient was in his wheelchair at the entrance of his room he was noted to have jerking movements with his head tilted to the right, but was noted to be verbally responsive. He did reports not feeling well at which point nursing staff assisted him back to bed. Around 0710 the jerking movements were noted to be more prominent primarily involving the left side but he continued to be able to converse and follow commands consistently. This lasted for approximately 5 minutes then resolved spontaneously. Around 0720 the movement started again at which point nursing staff called for an ambulance. Patient was still having jerking movements by the time the ambulance left the facility around 8 AM. Vital signs upon leaving the facility were blood pressure of 179/97, heart rate of 87, respiratory rate of 28 and temperature of 98.2. During the episodes of jerking saturations were noted to be in the 70s but seemed to pick back up to normal range once jerking stopped. Patient's care nurse has been taking care of him for approximately 3 years and states that she has not seen this events happen before. Patient had just completed his 2-week quarantine yesterday (08/03) following a positive Covid test on 07/21. He was noted to be significantly tachycardic and by ED nurse report he received 2 doses of adenosine. On his arrival to the ER he had at least 2 witnessed seizure episodes for which he received 2 doses of Ativan each with noted cessation of seizure activity. Nasal trumpet was placed in the left nare and he is currently requiring BiPAP. I am unable to arouse the patient despite stimulation. Vital signs currently are stable with mild tachycardia and tachypnea. Labs indicate a normal white count, normal hemoglobin, normal electrolytes and renal function, blood glucose of 139, lactic acid of 3.5, mild transaminitis with AST of 48, ALT of 64, normal TSH, elevated troponins with a delta of 2:52 hours, urinalysis that is indicative of infection. CT scan of the head and chest x-ray are unchanged from previous imaging. Dilantin and phenytoin levels have been ordered and are currently pending. He is currently receiving a Keppra load. Due to postictal phase, need for continued monitoring for further seizure activity, he will be admitted to ICU for close monitoring. Review of Systems General: Reports: ROS unobtainable due to mental status (patient is currently post-ictal) Neuro: Reports: seizure-like activity Medications/Allergies Home Medications Medication Instructions Recorded Confirmed Last Taken Type ferrous sulfate 325 mg (65 mg 325 mg PO DAILY 01/13/20 08/04/20 08/04/20 History iron) tablet omeprazole 20 mg capsule,delayed 20 mg PO DAILY 01/13/20 08/04/20 08/04/20 History release phenytoin sodium extended 100 mg 200 mg PO TID cap 01/13/20 08/04/20 08/04/20 History capsule TwoCal HN 90 ea PO TID 01/25/20 08/04/20 08/04/20 History acetaminophen 325 mg PO Q4H PRN 01/25/20 08/04/20 02/14/20 12:21 History bisacodyl 10 mg IA DAILY PRN 01/25/20 08/04/20 Unknown History magnesium hydroxide [Milk of See Rx Instructions .ROUTE 01/25/20 08/04/20 Unknown History Magnesia] .COMPLEX PRN polyethylene glycol 3350 [Miralax] 17 g PO DAILY PRN 01/25/20 08/04/20 Unknown History potassium chloride 20 meq PO DAILY 01/25/20 08/04/20 08/04/20 History sennosides-docusate sodium 1 tab-cap PO BID PRN 01/25/20 08/04/20 Unknown History [Senna-S] aspirin 81 mg PO DAILY #30 tab 01/30/20 08/04/20 08/04/20 Rx atorvastatin 80 mg PO DAILY #0 tab 01/30/20 08/04/20 08/03/20 Rx clopidogrel 75 mg PO DAILY #30 tab 01/30/20 08/04/20 08/04/20 Rx albuterol sulfate [ProAir HFA] 2 puff INHALATION TID PRN 02/15/20 08/04/20 Unknown History ascorbic acid (vitamin C) [Vitamin 1,000 mg PO BID 02/15/20 08/04/20 08/04/20 History C] methenamine hippurate 1 g PO BID 02/15/20 08/04/20 08/04/20 History valproic acid 500 mg PO BID 02/15/20 08/04/20 08/04/20 History ketoconazole 1 applic TOPICAL BID 28 Days #30 gm 02/18/20 08/04/20 08/03/20 Rx furosemide 40 mg tablet 40 mg PO DAILY 05/04/20 08/04/20 08/04/20 History tamsulosin 0.4 mg capsule 0.4 mg PO DAILY 05/04/20 08/04/20 08/03/20 History Allergies Allergy/AdvReac Type Severity Reaction Status Date / Time No Known Allergies Allergy Verified 08/04/20 08:25 PFSH Acute PFSH: Medical History Anemia Congestive heart failure Coronary artery disease Dementia Dermatitis, seborrheic involving face, neck, anterior chest Diabetes mellitus Epilepsy GERD (gastroesophageal reflux disease) Hydrocephalus -has known hx of hydrocephalus s/p REGIONAL TRAINING MANAGER shunting -CT head shows stable [employer]IONAL TRAINING MANAGER shunt, no acute abnormalities Hyperlipidemia Peripheral vascular disease Schizophrenia TIA (transient ischemic attack) Urinary retention -has prior hx of urinary retention -has been following up with Dr. Huerta -Had previously been noted to have mild to moderate hydronephrosis on the right and mild hydronephrosis on the left on previous CT abdomen/pelvis. Renal ultrasound done on 02/08 shows resolved hydronephrosis. -No noted hydronephrosis on CT abdomen and pelvis done on 02/14 Surgical History REGIONAL TRAINING MANAGER (ventriculoperitoneal) shunt status Family History Unknown No problems noted. Social History Smoking and tobacco status: unknown if ever smoked Alcohol intake: never Housing: Alf Marital status: Single Current occupational status: retired History of recent travel: No Current gender identity: Male Vitals/I&O/Wt Last Vital Signs Pulse 103 H 08/04/20 12:07 Resp 19 H 08/04/20 12:07 BP 131/85 08/04/20 12:07 Pulse Ox 100 08/04/20 12:07 08/03/20 08/04/20 08/04/20 22:59 06:59 14:59 Intake Total 110 / 110 Balance 110 / 110 Weight last 48 hrs Weight 74.843 kg Physical Exam Const: COMMON NORMALS: no acute distress GENERAL APPEARANCE: comfortable ORIENTATION/CONSCIOUSNESS: Yes patient obtunded HENMT: COMMON NORMALS: normocephalic and atraumatic HEAD & SCALP: normocephalic and atraumatic MOUTH: moist mucous membranes abnormal Details: parched Eye: COMMON NORMALS: Equal, round and reactive pupils present, EOMs intact bilaterally and conjunctivae normal CONJUNCTIVA: Yes conjunctivae normal PUPIL: Yes Equal, round and reactive pupils present Neck/C-Spine: GENERAL: Yes normal visual inspection and Yes trachea midline Resp: COMMON NORMALS: normal respiratory effort, No retractions, No use of accessory muscles and clear to auscultation bilaterally EFFORT & INSPECTION: Yes symmetric chest movement and Yes tachypneic AUSCULTATION: clear to auscultation bilaterally OTHER: -on BiPAP (AVAPS, 550/10/28%) Cardio: COMMON NORMALS: regular rhythm, S1 normal heart sound present, S2 normal heart sound present and No murmurs present (Cardio) RATE: tachycardic RHYTHM: regular rhythm HEART SOUNDS: S1 normal heart sound present and S2 normal heart sound present GI: COMMON NORMALS: Normal to inspection, nondistended, normoactive bowel sounds present and Soft to palpation INSPECTION: Yes central obesity PALPATION: Yes Soft to palpation : BLADDER/KIDNEY EXAM: Yes catheter in place Extremity: COMMON NORMALS: normal to inspection, no clubbing, cyanosis or edema and no pedal edema Neuro: SENSORIUM/ORIENTATION: Yes obtunded (post-ictal) Psych: OTHER: -unable to assess as currently post-ictal Skin: COMMON NORMALS: no jaundice, no petechiae and no mottling NARRATIVE SKIN EXAM: -serborrheic dermatitis involving face, anterior chest, neck Urinary Catheter Management^: Ness: Cath Placed During This Visit: yes Reason for Continuing Indwelling Catheter: Accurate Measurement of Urinary Output in Critically Ill Patients Urinary Catheter Date of Insertion: 08/04/20 Urinary Catheter Time of Insertion: 10:00 Data : 08/04/20 07:56 08/04/20 07:56 Micro: Microbiology 08/04/20 10:05 Blood Culture - Preliminary Blood SPECIMEN COLLECTED 08/04/20 10:05 Blood Culture - Preliminary Blood SPECIMEN COLLECTED A&P Assessment and plan (1) Seizure: -Witnessed seizure episodes in the ER and at the assisted prior to arrival -Aborted following doses of Ativan -Currently receiving Keppra load -Pending Dilantin and phenytoin levels -Suspicion that a UTI may have lowered seizure threshold and triggered episodes so we will start on treatment -Currently postictal and requiring BiPAP support -Keep n.p.o. until mental status improves -fall, aspiration and seizure precautions -CT head shows stable [employer]ION[employer] TRAINING MANAGER shunts, prior chronic infarcts -CXR unchanged -just completed 2-week quarantine following COVID-19 infection; rapid test -lactic acidosis likely due to seizures -Ness catheter in place; assess daily for removal Status: Acute (2) Acute hypercapnic respiratory failure: -secondary to multiple seizure episodes -currently requiring BiPAP -noted significant hypercapnia on ABGs -continue to monitor respiratory status closely Status: Acute (3) Acute encephalopathy: -secondary to multiple seizure episodes -neurochecks Status: Acute (4) Acute UTI: -UA indicative of infection -f/u urine cx -f/u blood cx -start on treatment with ceftriaxone Status: Acute (5) Diabetes mellitus: -documented hx of DM though A1c-5.3 (08/2019); hyperglycemia likely secondary to infection and stress reaction given seizures Status: Chronic Qualifiers: Diabetes mellitus type: type 2 Diabetes mellitus half-way insulin use: without terminal press operator use Diabetes mellitus complication status: without complication Qualified Code(s): E11.9 - Type 2 diabetes mellitus without complications (6) Anemia: -chronic normocytic anemia; baseline Hg is around 10; H/H wnl Status: Chronic Qualifiers: Anemia type: unspecified type Qualified Code(s): D64.9 - Anemia, unspecified (7) GERD (gastroesophageal reflux disease): -resume PPI Status: Chronic Qualifiers: Esophagitis presence: esophagitis presence not specified Qualified Code(s): K21.9 - Gastro-esophageal reflux disease without esophagitis (8) Coronary artery disease: -on DAPT, statin, resume when PO appropriate Status: Chronic Qualifiers: Coronary Disease-Associated Artery/Lesion type: [place] artery [place] vs. transplanted heart: [place] heart Associated angina: angina presence u nspecified Qualified Code(s): I25.10 - Atherosclerotic heart disease of [place] coronary artery without angina pectoris (9) Hyperlipidemia: -resume statin when PO appropriate Status: Chronic Qualifiers: Hyperlipidemia type: unspecified Qualified Code(s): E78.5 - Hyperlipidemia, unspecified (10) Dementia: -is WC bound; f/u with Dr. Morfin who suspects possibility of Lewy body disease versus gradual degenerative disease Status: Chronic Qualifiers: Dementia type: unspecified type Dementia behavioral disturbance: without behavioral disturbance Qualified Code(s): F03.90 - Unspecified dementia without behavioral disturbance (11) Peripheral vascular disease: -resume meds when appropriate Status: Chronic (12) Congestive heart failure: -hx of CHF, unknown type, no baseline Echo -appears clinically compensated -resume diuretics when PO appropriate Status: Chronic Qualifiers: Heart failure type: unspecified Heart failure chronicity: chronic Qualified Code(s): I50.9 - Heart failure, unspecified (13) Dermatitis, seborrheic: -on ketoconazole Status: Chronic Additional A&P Information -transaminitis; trend LFTs -hx of BPH; on flomax -noted elevated troponins with significant delta, likely type II due to demand ischemia from seizures and infection -GI ppx with PPI -DVT ppx with lovenox -Dispo: return to [facility] -Code status: DNR/DNI; paperwork in chart. DPOA is Alexander Darby -admit to ICU due to post-ictal phase, respiratory failure Attestations Medical Necessity Statement*: Sammy Cevalloskinney's hospital stay will require greater than 2 midnights for management of seizures with post-ictal phase, acute hypercapnic respiratory failure, treatment of UTI. Time Spent in Patient Care: Greater than 35 minutes (>than 50% of time spent in counselling and/or direct pt care on unit) . Coding Level of Care Code Acute Configurator for Linda Fwd Diagnoses Seizure R56.9 Acute hypercapnic respiratory failure J96.02 Acute encephalopathy G93.40 Acute UTI N39.0 Diabetes mellitus E11.9 Diabetes mellitus type: type 2 Diabetes mellitus half-way insulin use: without terminal press operator use Diabetes mellitus complication status: without complication Anemia D64.9 Anemia type: unspecified type GERD (gastroesophageal reflux disease) K21.9 Esophagitis presence: esophagitis presence not specified Coronary artery disease I25.10 Coronary Disease-Associated Artery/Lesion type: [place] artery [place] vs. transplanted heart: [place] heart Associated angina: angina presence unspecified Hyperlipidemia E78.5 Hyperlipidemia type: unspecified Dementia F03.90 Dementia type: unspecified type Dementia behavioral disturbance: without behavioral disturbance Peripheral vascular disease I73.9 Congestive heart failure I50.9 Heart failure type: unspecified Heart failure chronicity: chronic Dermatitis, seborrheic L21.9
[2020-08-04 12:36] LABS: Lactic Acid level (Lactate) 0.5 mmol/L (0.5-2.2)
[2020-08-04 12:47] LABS: ABG PCO2 70.8 mmHg (35-45)
--- NOTE | 2020-08-04 12:58 | ECG_ITS ---
[facility] Test Date: 2020-08-04 Pat Name: Sammy Anderson Department: Room: Gender: Male Tour Driver: : 1955 Requested By: Jessica Paul Order Number: [id number] Reading MD: MIKHAIL MILLER Measurements Intervals [place] Rate: 101 P: 49 NH: 150 QRS: 66 QRSD: 83 T: 108 QT: 345 QTc: 447 Interpretive Statements SINUS TACHYCARDIA NONSPECIFIC T-WAVE ABNORMALITY ABNORMAL RHYTHM ECG Compared to ECG 08/04/2020 10:14:43 No significant changes Electronically Signed On 08-05-2020 19:29:53 COLLEGE INTERN by MIKHAIL MILLER [id number]
[2020-08-04] MEDS: enoxaparin 40 mg/0.4 mL Syringe SUBCUT (13:09)
[2020-08-04] MEDS: pantoprazole 40 mg SDV IVP (13:09)
[2020-08-04] MEDS: cefTRIAXone 1,000 MG in sodium chloride 0.9% (plus) 50 ML 100 MG IV (13:10)
[2020-08-04 13:22] LABS: Phenytoin Dilantin 7.9 ug/mL (10-20); Valproic Acid Level 41.7 ug/mL (50-100)
[2020-08-04 13:38] LABS: SARS Covid-2 Antigen Positive (Negative)
[2020-08-04 13:45] LABS: Free T4 Free Thyroxine 1.24 ng/dL (0.82-1.77)
--- NOTE | 2020-08-04 14:22 | ECG_ITS ---
[facility] Test Date: 2020-08-04 Pat Name: Sammy Anderson Department: Room: Gender: Male Licensed Prosthetist/Orthotist: : 1955 Requested By: Artur Paul Order Number: [id number] Reading MD: MIKHAIL MILLER Measurements Intervals [place] Rate: 98 P: 52 DE: 142 QRS: 68 QRSD: 85 T: 113 QT: 339 QTc: 434 Interpretive Statements SINUS RHYTHM NONSPECIFIC T-WAVE ABNORMALITY Compared to ECG 08/04/2020 13:11:48 Sinus tachycardia no longer present T-wave abnormality still present Electronically Signed On 08-05-2020 19:34:05 METAL BONDING WORKER by MIKHAIL MILLER [id number]
[2020-08-04 14:52] LABS: Troponin 5 6HR 68.34 ng/L (0-15)
[2020-08-04 14:58] LABS: Troponin 5 6HR Delta 47.34 ng/L (0-12)
--- NOTE | 2020-08-04 15:37 | PC.NURSE ---
EKG done at 1530 and shown to ER doctor
[2020-08-04 17:35] LABS: ABG PCO2 55.1 mmHg (35-45); ABG PH Result 7.35 (7.35-7.45); Arterial Blood Gas Hematocrit 39.7 % (42-52); Base Excess ABG 3.5 mmol/L (-2.0-2.0); Blood Gas Allen Test Pos; Blood Gas Sample Type Arterial; HCO3 ABG 30.4 mmol/L (22-26); HGB O2 Sat 95.5 % (95-100); Ionized Calcium Level - ABG 1.1 mmol/L (1.1-1.4); Methemoglobin 0.8 % (0.4-1.5); Oxygen Saturation ABG 97.3; Potassium Level - ABG 4.1 mmol/L (3.5-5.0); Total Hemoglobin 12.9 g/dL (14-18)
[2020-08-04 17:36] LABS: Alveolar-Arterial Oxygen Gradi 6.5 mmHg (5-10); Blood Gas Operator Identificat ED; Blood Gas Sample Site Radial, right; Oxygen Device BIPAP
[2020-08-04 20:07] LABS: ABG PCO2 52.5 mmHg (35-45); ABG PH Result 7.36 (7.35-7.45); Arterial Blood Gas Hematocrit 39.7 % (42-52); Base Excess ABG 3.3 mmol/L (-2.0-2.0); Blood Gas Allen Test Pos; Blood Gas Sample Site Radial, right; Blood Gas Sample Type Arterial; HCO3 ABG 29.8 mmol/L (22-26); Oxygen Device NC; PO2 ABG 96.9 mmHg (80.0-100.0)
--- NOTE | 2020-08-04 20:19 | PC.NURSE ---
ASSUMED CARE OF PT. PT IS NON VERBAL. WILL CONTINUE TO MONITOR.
[2020-08-04] MEDS: ketoconazole Cream 15 gm 1 APPLIC TOPICAL (21:32)
--- NOTE | 2020-08-04 22:42 | PC.NURSE ---
PHARMACY CALLED AT ABOUT 2100. MED DELIVERED AT 2230. MED GIVEN AT THIS TIME.
[2020-08-05] VITALS (70 sets, daily range): BP systolic 86–145; BP diastolic 52–78; PULSE 89–123; RESP 8–42; TEMP 36.7–39.8; O2SAT 93–100; BMI 23.6
--- NOTE | 2020-08-05 06:20 | PC.NURSE ---
PT RESTING IN BED. REPOSITIONED. WILL CONTINUE TO MONITOR.
[2020-08-05] MEDS: cefTRIAXone 1,000 MG in sodium chloride 0.9% (plus) 50 ML 100 MG IV (08:32)
--- NOTE | 2020-08-05 09:14 | PM.PN ---
Subjective Subjective: Interval history: Remains post-ictal, though per overnight nursing staff he was easier to arouse and able to answer simple questions. Hi remains on BiPAP support with FiO2 of 28%, still NPO pending improvement in his mental status. Tachycardic, afebrile and normotensive. Medications: Reviewed: Yes Medication Review Details: Active Medications Generic Name Dose Route Start Last Admin Trade Name Freq PRN Reason Stop Dose Admin Acetaminophen 650 mg 08/04/20 18:05 Tylenol WI Q6H PRN FEVER Aspirin 81 mg 08/05/20 09:00 Aspirin Chewable PO DAILY [facility] Atorvastatin Calci um 80 mg 08/04/20 21:00 08/04/20 20:12 Lipitor PO Not Given BEDTIME LATASHA Bisacodyl 10 mg 08/04/20 18:05 Bisac-Evac WI DAILY PRN Constipation Clopidogrel Bisulf ate 75 mg 08/05/20 09:00 Plavix PO DAILY LATASHA Enoxaparin Sodium 40 mg 08/04/20 12:30 08/04/20 13:09 Lovenox SUBCUT 40 mg Q24H LATASHA Administration Ferrous Sulfate 325 mg 08/05/20 09:00 Ferrous Sulfate PO DAILY LATASHA Furosemide 40 mg 08/05/20 09:00 Lasix PO DAILY LATASHA Levetiracetam 1,00 0 mg/ Sodium 110 mls @ 420 mls /hr 08/04/20 08:30 08/05/20 07:58 Chloride IV 400 mls/hr Q12H LATASHA Administration Ceftriaxone Sodium 1,000 mg/ 50 mls @ 100 mls/ hr 08/04/20 12:35 08/05/20 08:32 Sodium Chloride IV 100 mls/hr DAILY LATASHA Administration Protocol Ketoconazole 1 applic 08/04/20 19:00 08/04/20 21:32 Nizoral Cream TOPICAL 1 applic BID LATASHA Administration Lorazepam 2 mg 08/04/20 18:05 Ativan IVP Q4H PRN Anxiety or seizur es Ondansetron HCl 4 mg 08/04/20 18:05 Zofran IVP Q6H PRN NAUSEA AND VOMITI NG Pantoprazole Sodiu m 40 mg 08/04/20 12:30 08/04/20 13:09 Protonix IVP 40 mg DAILY LATASHA Administration Phenytoin 200 mg 08/04/20 21:00 11/05/20 20:12 Dilantin PO Not Given TID [facility] Tamsulosin HCl 0.4 mg 08/05/20 09:00 Flomax PO DAILY LATASHA Valproic Acid 500 mg 08/04/20 19:00 08/04/20 20:12 Depakene Capsule PO Not Given BID [facility] No Known Allergies Allergy (Verified 08/04/20 08:25) Vitals/I&O/Wt Last Vital Signs Temp 98.1 F 08/05/20 06:00 Pulse 115 H 08/05/20 09:00 Resp 25 H 08/05/20 09:00 BP 121/74 08/05/20 09:00 Pulse Ox 95 08/05/20 09:00 08/04/20 08/05/20 08/05/20 22:59 06:59 14:59 Intake Total 110 / 270 Balance 110 / 270 Weight last 48 hrs Weight 74.843 kg Physical Exam Const: COMMON NORMALS: no acute distress GENERAL APPEARANCE: comfortable ORIENTATION/CONSCIOUSNESS: Yes patient obtunded HENMT: COMMON NORMALS: normocephalic and atraumatic HEAD & SCALP: normocephalic and atraumatic MOUTH: moist mucous membranes abnormal Details: parched Eye: COMMON NORMALS: Equal, round and reactive pupils present, EOMs intact bilaterally and conjunctivae normal CONJUNCTIVA: Yes conjunctivae normal PUPIL: Yes Equal, round and reactive pupils present Neck/C-Spine: GENERAL: Yes normal visual inspection and Yes trachea midline Resp: COMMON NORMALS: normal respiratory effort, No retractions, No use of accessory muscles and clear to auscultation bilaterally EFFORT & INSPECTION: Yes symmetric chest movement and Yes tachypneic AUSCULTATION: clear to auscultation bilaterally OTHER: -on BiPAP (AVAPS, 550/10/28%) Cardio: COMMON NORMALS: regular rhythm, S1 normal heart sound present, S2 normal heart sound present and No murmurs present (Cardio) RATE: tachycardic RHYTHM: regular rhythm HEART SOUNDS: S1 normal heart sound present and S2 normal heart sound present GI: COMMON NORMALS: Normal to inspection, nondistended, normoactive bowel sounds present and Soft to palpation INSPECTION: Yes central obesity PALPATION: Yes Soft to palpation : BLADDER/KIDNEY EXAM: Yes catheter in place Extremity: COMMON NORMALS: normal to inspection, no clubbing, cyanosis or edema and no pedal edema Neuro: SENSORIUM/ORIENTATION: Yes obtunded (post-ictal) Psych: OTHER: -unable to assess as currently post-ictal Skin: COMMON NORMALS: no jaundice, no petechiae and no mottling NARRATIVE SKIN EXAM: -serborrheic dermatitis involving face, anterior chest, neck Urinary Catheter Management^: Ness: Cath Placed During This Visit: yes Reason for Continuing Indwelling Catheter: Accurate Measurement of Urinary Output in Critically Ill Patients Urinary Catheter Date of Insertion: 08/04/20 Urinary Catheter Time of Insertion: 10:00 Data : 08/04/20 07:56 08/04/20 07:56 Micro: Microbiology 08/04/20 09:59 Urine Culture - Preliminary Urine,Clean Catch 08/04/20 10:05 Blood Culture - Preliminary Blood SPECIMEN COLLECTED 08/04/20 10:05 Blood Culture - Preliminary Blood SPECIMEN COLLECTED A&P Assessment and plan (1) Seizure: -W[facility]ed [facility] and [facility] -Aborted following doses of Ativan -Continue Keppra -Sub--therapeutic Dilantin and phenytoin levels -Suspicion that a UTI may have lowered seizure threshold and triggered episodes so on treatment -Continues to be postictal and requiring BiPAP support -Keep n.p.o. 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 As he has completed his quarantine and was otherwise asymptomatic we will not need to continue isolation precautions at this time. -lactic acidosis likely due to seizures, now resolved -Ness catheter in place; assess daily for removal Status: Acute (2) Acute hypercapnic respiratory failure: -secondary to multiple seizure episodes -currently requiring BiPAP; wean as tolerated -noted significant hypercapnia on ABGs -continue to monitor respiratory status closely Status: Acute (3) Acute encephalopathy: -secondary to multiple seizure episodes -neurochecks Status: Acute (4) Acute UTI: -UA indicative of infection -urine cx: contaminants -f/u blood cx -on ceftriaxone Status: Acute (5) Diabetes mellitus: -documented hx of DM though A1c-5.3 (08/2019); hyperglycemia likely secondary to infection and stress reaction given seizures Status: Chronic Qualifiers: Diabetes mellitus type: type 2 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 Diabetes mellitus complication status: without complication Qualified Code(s): E11.9 - Type 2 diabetes mellitus without complications (6) Anemia: -chronic normocytic anemia; baseline Hg is around 10; H/H wnl Status: Chronic Qualifiers: Anemia type: unspecified type Qualified Code(s): D64.9 - Anemia, unspecified (7) GERD (gastroesophageal reflux disease): -continue PPI Status: Chronic Qualifiers: Esophagitis presence: esophagitis presence not specified Qualified Code(s): K21.9 - Gastro-esophageal reflux disease without esophagitis (8) Coronary artery disease: -on DAPT, statin, resume when PO appropriate Status: Chronic Qualifiers: Coronary Disease-Associated Artery/Lesion type: [place]ake artery [place] vs. transplanted heart: kake heart Associated angina: angina presence unspecified Qualified Code(s): I25.10 - Atherosclerotic heart disease of k[place] coronary artery without angina pectoris (9) Hyperlipidemia: -resume statin when PO appropriate Status: Chronic Qualifiers: Hyperlipidemia type: unspecified Qualified Code(s): E78.5 - Hyperlipidemia, unspecified (10) Dementia: -is WC bound; f/u with Dr. Morfin who suspects possibility of Lewy body disease versus gradual degenerative disease Status: Chronic Qualifiers: Dementia type: unspecified type Dementia behavioral disturbance: without behavioral disturbance Qualified Code(s): F03.90 - Unspecified dementia without behavioral disturbance (11) Peripheral vascular disease: -resume meds when appropriate Status: Chronic (12) Congestive heart failure: -hx of CHF, unknown type, no baseline Echo -appears clinically compensated -resume diuretics when PO appropriate Status: Chronic Qualifiers: Heart failure type: unspecified Heart failure chronicity: chronic Qualified Code(s): I50.9 - Heart failure, unspecified (13) Dermatitis, seborrheic: -on ketoconazole Status: Chronic Additional A&P Information -transaminitis; trend LFTs -hx of BPH; on flomax -noted elevated troponins with significant delta, likely type II due to demand ischemia from seizures and infection -GI ppx with PPI -DVT ppx with lovenox -Dispo: return to [facility] -Code status: DNR/DNI; paperwork in chart. DPOA is Alexander Darby -continue ICU care due to post-ictal phase, respiratory failure. Need to wait for resolution of post-ictal phase Attestations Medical Necessity Statement*: Patient requires hospitalization for continued care pending resolution of postictal phase following multiple witnessed seizure episodes with resulting respiratory failure, continues to require BiPAP support. Time Spent in Patient Care: 16 - 35 minutes (>than 50% of time spent in counselling and/or direct pt care on unit). 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 transplanted heart: kake heart Associated angina: angina presence unspecified Hyperlipidemia E78.5 Hyperlipidemia type: unspecified Dementia F03.90 Dementia type: unspecified type Dementia behavioral disturbance: without behavioral disturbance Peripheral vascular disease I73.9 Congestive heart failure I50.9 Heart failure type: unspecified Heart failure chronicity: chronic Dermatitis, seborrheic L21.9
--- NOTE | 2020-08-05 09:27 | PC.NURSE ---
lethargic remains on bipap does respond but no purposful at this time hob elevated on seizure precations
[2020-08-05] MEDS: pantoprazole 40 mg SDV IVP (10:14)
[2020-08-05] MEDS: ketoconazole Cream 15 gm 1 APPLIC TOPICAL ×2 (10:16→16:37)
[2020-08-05] MEDS: LORazepam 2 mg/mL INJ 1 mL IVP (10:23)
[2020-08-05] MEDS: acetaminophen 650 mg Supp PR ×2 (10:38→17:55)
[2020-08-05] MEDS: cefTRIAXone 2,000 MG in sodium chloride 0.9% (plus) 50 ML 100 MG IV (11:16)
[2020-08-05] MEDS: dexamethasone 4 mg/mL INJ 10 MG IVP ×2 (11:33→15:43)
[2020-08-05] MEDS: ampicillin 2,000 MG in sodium chloride 0.9% (plus) 50 ML 100 MG IV ×3 (11:36→21:02)
[2020-08-05] MEDS: enoxaparin 40 mg/0.4 mL Syringe SUBCUT (11:36)
[2020-08-05 11:43] LABS: Basophils % 0.3 %; Eosinophils % 0.1 %; Hematocrit 37.1 % (42.0-52.0); Hemoglobin 12.1 g/dL (11.7-16.6); Lymphocytes # 1.3 10^3/uL (0.8-4.8); Lymphocytes % 16.7 %; Mean Corpuscular HGB Conc 32.6 g/dL (30.0-36.0); Mean Corpuscular Hemoglobin 30.8 pg (28.0-34.0); Mean Corpuscular Volume 94.4 fL (80-94); Mean Platelet Volume 9.6 fL (7.4-10.4); Monocytes # 0.9 10^3/uL (0.2-0.9); Monocytes % 11.6 %; Neutrophils % 70.7 %; Nucleated Red Blood Cells % 0 %; Platelet Count 142 10^3/cmm (130-400); Red Blood Count 3.93 10^6/uL (4.1-5.3); Red Cell Distribution Width 13.2 % (12.1-15.1); White Blood Count 7.8 10^3/uL (4.0-10.0)
[2020-08-05 11:45] LABS: Alanine Aminotransferase 47 U/L (0-41); Albumin Level 3.3 g/dL (3.5-5.2); Alkaline Phosphatase 123 IU/L (40-130); Aspartate Amino Transferase 39 U/L (0-40); Blood Urea Nitrogen 17 mg/dL (8-23); Calcium 8.4 mg/dL (8.5-10.5); Carbon Dioxide 29 mmol/L (22-29); Chloride 103 mmol/L (98-107); Globulin 3.5 g/dL (1.3-4.6); Glomerular Filtration Rate 114.3 mL/min (90-130); Glucose 90 mg/dL (65-115); Osmolality Calculated 293 mOsm/kg (285-295); Sodium 141 mmol/L (136-145); Total Bilirubin 0.2 mg/dL (0.15-1.2); Total Protein 6.8 g/dL (6.6-8.7)
[2020-08-05] MEDS: vancomycin 1,000 MG in sodium chloride 0.9% 250 ML 250 MG IV ×2 (12:10→20:51)
[2020-08-05 12:11] LABS: Anion Gap 13.4 (5-19); Potassium 4.4 mmol/L (3.5-5.1)
--- NOTE | 2020-08-05 12:58 | PC.NURSE ---
up in bed repositioned with assist of air matress. temp remains elevated but decreasing at this time
--- NOTE | 2020-08-05 17:55 | PC.NURSE ---
temp remains elevated repeat suppos at this time
--- NOTE | 2020-08-05 18:31 | PC.NURSE ---
brief report called to [facility]
--- NOTE | 2020-08-05 18:32 | P.TS_ITS ---
Transfer Summary Providers Date of Admission: 08/04/20 11:45 Date of Discharge: 08/05/20 Attending Provider at Admission: Kelly Donnelly MD Attending Provider at Transfer: Kelly Donnelly MD Consults: None Primary Care Provider: Lucian Torres MD Anticipated Date of Transfer: Anticipated date of transfer: 08/05/20 Receiving Facility & Provider: Receiving Provider: [Dr. Martinez] Receiving facility: [[place], [place]] Diagnoses at Discharge Discharge Diagnosis (1) Seizure: Status: Acute Permanent problem details: -Witnessed seizure episodes in the ER and at the [facility] prior to arrival -Aborted following doses of Ativan -Continue Keppra -Sub--therapeutic Dilantin and phenytoin levels -Suspicion that a UTI may have lowered seizure threshold and triggered episodes so on treatment -Continues to be postictal and requiring BiPAP support -Keep n.p.o. 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 As he has completed his quarantine and was otherwise asymptomatic we will not need to continue isolation precautions at this time. -lactic acidosis likely due to seizures, now resolved -Ness catheter in place; assess daily for removal -added Vancomycin, Ampicillin, Acyclovir, IV steroids -repeat CT head unchanged -has remained febrile throughout the day (2) Acute hypercapnic respiratory failure: Status: Acute Permanent problem details: -secondary to multiple seizure episodes -currently requiring BiPAP; wean as tolerated -noted significant hypercapnia on ABGs -continue to monitor respiratory status closely (3) Acute encephalopathy: Status: Acute Permanent problem details: -secondary to multiple seizure episodes with prolonged post-ictal period -neurochecks (4) Acute UTI: Status: Acute Permanent problem details: -on ceftriaxone (5) Diabetes mellitus: Status: Chronic Qualifiers: Diabetes mellitus type: type 2 Diabetes mellitus bass viol repairer insulin use: without mcfp use Diabetes mellitus complication status: without complicati on Qualified Code(s): E11.9 - Type 2 diabetes mellitus without complications (6) Anemia: Status: Chronic Qualifiers: Anemia type: unspecified type Qualified Code(s): D64.9 - Anemia, unspecified (7) GERD (gastroesophageal reflux disease): Status: Chronic Qualifiers: Esophagitis presence: esophagitis presence not specified Qualified Code(s): K21.9 - Gastro-esophageal reflux disease without esophagitis (8) Coronary artery disease: Status: Chronic Qualifiers: Coronary Disease-Associated Artery/Lesion type: [place] artery [place] vs. transplanted heart: [place] heart Associated angina: angina presence unspecified Qualified Code(s): I25.10 - Atherosclerotic heart disease of [place] coronary artery without angina pectoris (9) Hyperlipidemia: Status: Chronic Qualifiers: Hyperlipidemia type: unspecified Qualified Code(s): E78.5 - Hyperlipidemia, unspecified (10) Dementia: Status: Chronic Qualifiers: Dementia type: unspecified type Dementia behavioral disturbance: without behavioral disturbance Qualified Code(s): F03.90 - Unspecified dementia without behavioral disturbance (11) Peripheral vascular disease: Status: Chronic (12) Congestive heart failure: Status: Chronic Qualifiers: Heart failure type: unspecified Heart failure chronicity: chronic Qualified Code(s): I50.9 - Heart failure, unspecified (13) Dermatitis, seborrheic: Status: Chronic Permanent problem details: involving face, neck, anterior chest Reason for Visit Reason for Visit: SEIZURE LIKE ACTIVITY/ SVT Hospital Course Hospital Course: Patient was admitted to ICU after having had multiple seizure episodes all of which were witnessed, 2 at [facility]dc and 2 in the ER. He required Ativan for episodes to be aborted and was started on IV Keppra. He has remained postictal since admission and required BiPAP support due to noted hypercapnia likely due to hypoventilation during seizure episodes. His antiepileptic medication levels are subtherapeutic which may have contributed to his breakthrough seizures. Earlier this morning he started to spike high-grade temperatures and had additional seizure activity, again aborted following dose of Ativan which may be contributing to his continued depressed mental status. Airway has been protected with BiPAP support and he is currently on FiO2 of 28%. He remains febrile and there is continued suspicion for COVID-19 infection, PCR testing is pending, rapid testing was positive. He has been on isolation precautions due to this. In light of pre-existing viral infection and high- grade temperatures there is concern for possible encephalitis though he has consistently had a normal white count, procalcitonin was negative. Repeat CT head was done this morning which was unchanged. Following additional seizure activity this morning and fever IV antibiotic therapy was broadened to include vancomycin and ampicillin; patient had already been on ceftriaxone secondary to noted evidence of UTI. I also added antiviral coverage with acyclovir and IV steroids. Plan was for lumbar puncture but in light of COVID-19 infection as well as greater concern for status epilepticus with need for neurology evaluation and potentially EEG, neither of which is available at our facility currently, transfer was considered the most appropriate option. Patient has been accepted for transfer to [facility] in [place], [place] under the care of Dr. Martinez. Physical Exam Const: COMMON NORMALS: no acute distress GENERAL APPEARANCE: comfortable ORIENTATION/CONSCIOUSNESS: Yes patient obtunded HENMT: COMMON NORMALS: normocephalic and atraumatic HEAD & SCALP: normocephalic and atraumatic MOUTH: moist mucous membranes abnormal Details: parched Eye: COMMON NORMALS: Equal, round and reactive pupils present, EOMs intact bilaterally and conjunctivae normal CONJUNCTIVA: Yes conjunctivae normal PUPIL: Yes Equal, round and reactive pupils present Neck/C-Spine: GENERAL: Yes normal visual inspection and Yes trachea midline Resp: COMMON NORMALS: normal respiratory effort, No retractions, No use of accessory muscles and clear to auscultation bilaterally EFFORT & INSPECTION: Yes symmetric chest movement and Yes tachypneic AUSCULTATION: clear to auscultation bilaterally OTHER: -on BiPAP (AVAPS, 550/10/28%) Cardio: COMMON NORMALS: regular rhythm, S1 normal heart sound present, S2 normal heart sound present and No murmurs present (Cardio) RATE: tachycardic RHYTHM: regular rhythm HEART SOUNDS: S1 normal heart sound present and S2 normal heart sound present GI: COMMON NORMALS: Normal to inspection, nondistended, normoactive bowel sounds present and Soft to palpation INSPECTION: Yes central obesity PALPATION: Yes Soft to palpation : BLADDER/KIDNEY EXAM: Yes catheter in place Extremity: COMMON NORMALS: normal to inspection, no clubbing, cyanosis or edema and no pedal edema Neuro: SENSORIUM/ORIENTATION: Yes obtunded (post-ictal) Psych: OTHER: -unable to assess as currently post-ictal Skin: COMMON NORMALS: no jaundice, no petechiae and no mottling NARRATIVE SKIN EXAM: -serborrheic dermatitis involving face, anterior chest, neck Urinary Catheter Management^: Ness: Cath Placed During This Visit: yes Reason for Continuing Indwelling Catheter: Accurate Measurement of Urinary Output in Critically Ill Patients Urinary Catheter Date of Insertion: 08/04/20 Urinary Catheter Time of Insertion: 10:00 TS Data Data Completed and Pending: Completed Studies During Hospitalization Category Date Time Status CT head wo con* 7 0450 Urgent Cat Scan 08/04/20 08:34 Completed XR chest 1V mecca ble [id number] Stat Exams 08/04/20 08:20 Completed Pending at discharge Category Date Time Status CT chest wo con 7 1250 Urgent Cat Scan 08/05/20 11:[address] head wo con* 7 0450 Stat Cat Scan 08/05/20 10:38 Ordered Blood Culture Sta t Lab 08/04/20 10:05 Results Blood Culture Sta t Lab 08/05/20 11:04 Results CSF Analysis + Ce ll Count Stat Lab 08/05/20 11:02 Uncollected CSF Culture & Gra m Stain Stat Lab 08/05/20 11:02 Uncollected CSF Specific Grav ity Routine Lab 08/05/20 11:02 Uncollected Comprehensive Met abolic Panel AM LA BS Lab 08/06/20 04:00 Ordered Fungal Culture no t HR/SK/BL Stat Lab 08/05/20 11:05 Uncollected Glucose CSF Stat Lab 08/05/20 11:02 Uncollected Miscellaneous Hollie t Routine Lab 08/05/20 11:02 Ordered [facility] SARS-CoV-2 RNA Stat Lab 08/05/20 15:50 Received [place] Encep. Virus IFA CSF Stat Lab 08/05/20 11:02 Ordered Total Protein CSF Routine Lab 08/05/20 11:02 Uncollected Urine Culture Sta t Lab 08/04/20 09:59 Results VDRL on CSF Stat Lab 08/05/20 11:02 Uncollected Viral Culture Bod y Flds,Tissue Rout ine Lab 08/05/20 11:04 Uncollected Labs from last 24 hours 08/05/20 08/05/20 08/05/20 15:50 11:09 11:09 WBC 7.8 RBC 3.93 L Hgb 12.1 Hct 37.1 L MCV 94.4 H MCH 30.8 MCHC 32.6 RDW 13.2 Plt Count 142 MPV 9.6 Neut % (Auto) 70.7 Lymph % (Auto) 16.7 Isabela % (Auto) 11.6 Eos % (Auto) 0.1 Baso % (Auto) 0.3 Neut # (Auto) 5.50 Lymph # (Auto) 1.3 Isabela # (Auto) 0.9 Eos # (Auto) 0.0 Baso # (Auto) 0.0 Nucleated RBC % (a uto) 0 Nucleated RBCs # 0.0 Specimen Type Sample Site ABG pH ABG pCO2 ABG pO2 ABG HCO3 ABG Base Excess Reynaldo Test Hematocrit O2 Delivery Device O2 Liters/Min Fiber Optic Splicer ID Sodium 141 Potassium 4.4 Chloride 103 Carbon Dioxide 29 Anion Gap 13.4 BUN 17 Creatinine 0.7 GFR Calculation 114.3 Glucose 90 Calculated Osmolal ity 293 Calcium 8.4 L Total Bilirubin 0.2 AST 39 ALT 47 H Alkaline Phosphata se 123 Total Protein 6.8 Albumin 3.3 L Globulin 3.5 SARS-CoV-2 RNA (RT -PCR) Pending 08/04/20 20:00 WBC RBC Hgb Hct MCV MCH MCHC RDW Plt Count MPV Neut % (Auto) Lymph % (Auto) Isabela % (Auto) Eos % (Auto) Baso % (Auto) Neut # (Auto) Lymph # (Auto) Isabela # (Auto) Eos # (Auto) Baso # (Auto) Nucleated RBC % (a uto) Nucleated RBCs # Specimen Type Arterial Sample Site Radial, right ABG pH 7.36 ABG pCO2 52.5 H ABG pO2 96.9 ABG HCO3 29.8 H ABG Base Excess 3.3 H Reynaldo Test Pos Hematocrit 39.7 L O2 Delivery Device Nc O2 Liters/Min 2.0 Fiber Optic Splicer ID Hinja Sodium Potassium Chloride Carbon Dioxide Anion Gap BUN Creatinine GFR Calculation Glucose Calculated Osmolal ity Calcium Total Bilirubin AST ALT Alkaline Phosphata se Total Protein Albumin Globulin SARS-CoV-2 RNA (RT -PCR) Vitals: Last Vital Signs Temp 103.1 F H 08/05/20 17:00 Pulse 102 H 08/05/20 18:15 Resp 23 H 08/05/20 18:15 BP 101/60 08/05/20 18:15 Pulse Ox 97 08/05/20 18:15 TS Medications Medications Home Medications ferrous sulfate 325 mg (65 mg iron) tablet 325 mg PO DAILY 01/13/20 [History Confirmed 08/04/20] omeprazole 20 mg capsule,delayed release 20 mg PO DAILY 01/13/20 [History Confirmed 08/04/20] phenytoin sodium extended 100 mg capsule 200 mg PO TID cap 01/13/20 [History Confirmed 08/04/20] TwoCal HN 90 ea PO TID 01/25/20 [History Confirmed 08/04/20] acetaminophen 325 mg PO Q4H PRN 01/25/20 [History Confirmed 08/04/20] bisacodyl 10 mg [place] DAILY PRN 01/25/20 [History Confirmed 08/04/20] magnesium hydroxide [Milk of Magnesia] See Rx Instructions .ROUTE .COMPLEX PRN 01/25/20 [History Confirmed 08/04/20] polyethylene glycol 3350 [Miralax] 17 g PO DAILY PRN 01/25/20 [History Confirmed 08/04/20] potassium chloride 20 meq PO DAILY 01/25/20 [History Confirmed 08/04/20] sennosides-docusate sodium [Senna-S] 1 tab-cap PO BID PRN 01/25/20 [History Confirmed 08/04/20] aspirin 81 mg PO DAILY #30 tab 01/30/20 [Rx Confirmed 08/04/20] atorvastatin 80 mg PO DAILY #0 tab 01/30/20 [Rx Confirmed 08/04/20] clopidogrel 75 mg PO DAILY #30 tab 01/30/20 [Rx Confirmed 08/04/20] albuterol sulfate [ProAir HFA] 2 puff INHALATION TID PRN 02/15/20 [History Confirmed 08/04/20] ascorbic acid (vitamin C) [Vitamin C] 1,000 mg PO BID 02/15/20 [History Confirmed 08/04/20] methenamine hippurate 1 g PO BID 02/15/20 [History Confirmed 08/04/20] valproic acid 500 mg PO BID 02/15/20 [History Confirmed 08/04/20] ketoconazole 1 applic TOPICAL BID 28 Days #30 gm 02/18/20 [Rx Confirmed 08/04/20] furosemide 40 mg tablet 40 mg PO DAILY 05/04/20 [History Confirmed 08/04/20] tamsulosin 0.4 mg capsule 0.4 mg PO DAILY 05/04/20 [History Confirmed 08/04/20] Active Medications Acetaminophen (Tylenol) 650 mg [place] Q6H PRN PRN Reason: FEVER Last Admin: 08/05/20 17:55 Dose: 650 mg Documented by: Aspirin (Aspirin Chewable) 81 mg PO DAILY [facility] Last Admin: 08/05/20 09:33 Dose: Not Given Documented by: Atorvastatin Calcium (Lipitor) 80 mg PO BEDTIME [facility] Last Admin: 08/04/20 20:12 Dose: Not Given Documented by: Bisacodyl (Bisac-Evac) 10 mg [place] DAILY PRN PRN Reason: Constipation Clopidogrel Bisulfate (Plavix) 75 mg PO DAILY [facility] Last Admin: 08/05/20 09:33 Dose: Not Given Documented by: Dexamethasone (Decadron) 10 mg IVP Q6H [facility] Last Admin: 08/05/20 15:43 Dose: 10 mg Documented by: Enoxaparin Sodium (Lovenox) 40 mg SUBCUT Q24H [facility] Last Admin: 08/05/20 11:36 Dose: 40 mg Documented by: Ferrous Sulfate (Ferrous Sulfate) 325 mg PO DAILY [facility] Last Admin: 08/05/20 09:44 Dose: Not Given Documented by: Furosemide (Lasix) 40 mg PO DAILY [facility] Last Admin: 08/05/20 09:44 Dose: Not Given Documented by: Levetiracetam 1,000 mg/ Sodium (Chloride) 110 mls @ 420 mls/hr IV Q12H [facility] Last Admin: 08/05/20 07:58 Dose: 400 mls/hr Documented by: Vancomycin HCl 1,000 mg/ (Sodium Chloride) 250 mls @ 250 mls/hr IV Q8H [facility]; Protocol Last Admin: 08/05/20 12:10 Dose: 250 mls/hr Documented by: Ceftriaxone Sodium 2,000 mg/ (Sodium Chloride) 50 mls @ 100 mls/hr IV Q12H [facility]; Protocol Last Admin: 08/05/20 11:16 Dose: 100 mls/hr Documented by: Acyclovir 750 mg/ Sodium (Chloride) 115 mls @ 110 mls/hr IV Q8H [facility] Last Admin: 08/05/20 11:37 Dose: 110 mls/hr Documented by: Ampicillin Sodium 2,000 mg/ (Sodium Chloride) 50 mls @ 100 mls/hr IV Q4H [facility]; Protocol Last Admin: 08/05/20 15:42 Dose: 100 mls/hr Documented by: Ketoconazole (Nizoral Cream) 1 applic TOPICAL BID [facility] Last Admin: 08/05/20 16:37 Dose: 1 applic Documented by: Lorazepam (Ativan) 2 mg IVP Q4H PRN PRN Reason: Anxiety or seizures Last Admin: 08/05/20 10:23 Dose: 2 mg Documented by: Metoprolol Tartrate (Metoprolol Tartrate) 2.5 mg IV Q4H PRN PRN Reason: HEART RATE-HIGH Ondansetron HCl (Zofran) 4 mg IVP Q6H PRN PRN Reason: NAUSEA AND VOMITING Pantoprazole Sodium (Protonix) 40 mg IVP DAILY [facility] Last Admin: 08/05/20 10:14 Dose: 40 mg Documented by: Phenytoin (Dilantin) 200 mg PO TID [facility] Last Admin: 08/05/20 14:53 Dose: Not Given Documented by: Tamsulosin HCl (Flomax) 0.4 mg PO DAILY [facility] Last Admin: 08/05/20 09:44 Dose: Not Given Documented by: Valproic Acid (Depakene Capsule) 500 mg PO BID [facility] Last Admin: 08/05/20 16:38 Dose: Not Given Documented by: Discharge Plan Discharge Patient Disposition: Xfer Short-Term Hosp Condition: Stable Prescriptions: No Action furosemide [Lasix] 40 mg tablet 40 mg PO DAILY RF: 0 tamsulosin 0.4 mg capsule 0.4 mg PO DAILY RF: 0 ferrous sulfate 325 mg (65 mg iron) tablet 325 mg PO DAILY RF: 0 omeprazole 20 mg capsule,delayed release(DR/EC) 20 mg PO DAILY RF: 0 phenytoin sodium extended [Dilantin Extended] 100 mg capsule 200 mg PO TID RF: 0 acetaminophen 325 mg Tablet 325 mg PO Q4H PRN (Reason: Pain) RF: 0 sennosides-docusate sodium [Senna-S] 8.6-50 mg Tablet 1 tab-cap PO BID PRN (Reason: Constipation) RF: 0 magnesium hydroxide [Milk of Magnesia] 400 mg/5 mL Suspension See Rx Instructions .ROUTE .COMPLEX PRN (Reason: Constipation) RF: 0 bisacodyl 10 mg Suppository 10 mg [place]Y DAILY PRN (Reason: Constipation) RF: 0 polyethylene glycol 3350 [Miralax] 17 gram/dose Powder 17 g PO DAILY PRN (Reason: Constipation) RF: 0 TwoCal HN 0.08-2 gram-kcal/mL Liquid 90 ea PO TID RF: 0 potassium chloride 20 mEq Tablet Extended Release 20 meq PO DAILY RF: 0 clopidogrel 75 mg Tablet 75 mg PO DAILY Qty: 30 RF: 0 aspirin 81 mg tablet,chewable 81 mg PO DAILY Qty: 30 RF: 0 atorvastatin 40 mg tablet 80 mg PO DAILY Qty: 0 RF: 0 ascorbic acid (vitamin C) [Vitamin C] 1,000 mg Tablet 1,000 mg PO BID RF: 0 valproic acid 250 mg Capsule 500 mg PO BID RF: 0 methenamine hippurate 1 gram Tablet 1 g PO BID RF: 0 albuterol sulfate [ProAir HFA] 90 mcg/actuation Hfa Aerosol Inhaler 2 puff INHALATION TID PRN (Reason: Shortness Of Breath) RF: 0 ketoconazole 2 % cream 1 applic TOPICAL BID 28 Days Qty: 30 RF: 1 Discharge Orders: Discharge Order (Routine); Ordered 08/05/20 Ordered By: Kelly Donnelly Transfer Attestations Time Spent in Transfer Care*: greater than 30 min Specific Discharge Activities: Specific discharge activities: discussing with pcp/other providers, documenting/other paperwork and evaluating patient/reviewing data Status at Transfer: Cognitive status at transfer: other (obtunded) , Overall status at transfer: patient is not back to baseline Quality Metrics Clinical Quality Measures: During this hospital stay, did patient experience: None Coding Level of Care Code Acute Clinical Care Leader for [facility] [place] Fwd Diagnoses Seizure R56.9 Acute hypercapnic respiratory failure J96.02 Acute encephalopathy G93.40 Acute UTI N39.0 Diabetes mellitus E11.9 Diabetes mellitus type: type 2 Diabetes mellitus mcfp insulin use: without bass viol repairer use Diabetes mellitus complication status: without complication Anemia D64.9 Anemia type: unspecified type GERD (gastroesophageal reflux disease) K21.9 Esophagitis presence: esophagitis presence not specified Coronary artery disease I25.10 Coronary Disease-Associated Artery/Lesion type: [place] artery [place] vs. transplanted heart: [place] heart Associated angina: angina presence unspecified Hyperlipidemia E78.5 Hyperlipidemia type: unspecified Dementia F03.90 Dementia type: unspecified type Dementia behavioral disturbance: without behavioral disturbance Peripheral vascular disease I73.9 Congestive heart failure I50.9 Heart failure type: unspecified Heart failure chronicity: chronic Dermatitis, seborrheic L21.9
[2020-08-05] MEDS: succinylcholine 20 mg/mL SDV 10mL 100 MG IV (20:16)
--- NOTE | 2020-08-05 20:16 | PC.NURSE ---
Intubation Note Dr. Sparks ordered intubation for transfer to another facility for airway protection. Dr. Bai at bedside. Sedated with 20mg etomidate followed by paralytic sucs 100mg. Intubated with size 8 tube, 25 at lip. Bilateral and equal breath sounds. 16 fr og tube placed without difficulty. Chest xray confirmed ET/OG placement.
--- NOTE | 2020-08-05 20:20 | XRR_ITS ---
PROCEDURE INFORMATION: Exam: XR Chest, 1 View Exam date and time: 08/05/2020 8:38 PM Age: 64 years old Clinical indication: Device placement; Other: Og tube; Additional info: S/P intubation TECHNIQUE: Imaging protocol: XR of the chest Views: 1 view. COMPARISON: CR XR chest 1V portable [id number] 08/04/2020 8:35 AM FINDINGS: Tubes, catheters and devices: The endotracheal tube is appropriately positioned in the distal thoracic trachea with the tip above the katiana. The nasogastric tube is appropriately positioned with the tip in the stomach, well beyond the diaphragmatic hiatus. There is a shunt catheter projecting over the right neck chest wall and upper abdomen. Lungs: There is no pulmonary consolidation. Pleural space: No large effusion or pneumothorax. Heart/Mediastinum: Cardiomediastinal contours are unremarkable. Diaphragm: there is marked asymmetric elevation of the right hemidiaphragm. Bones/joints: Bones are unremarkable. XR/XR chest 1V portable [id number] IMPRESSION: 1. Satisfactory endotracheal tube position. 2. Satisfactory nasogastric tube position. 3. No acute pulmonary process.
[2020-08-05] MEDS: midazolam 1 mg/mL INJ 2 mL 4 MG IVP (20:25)
--- NOTE | 2020-08-05 21:08 | PC.NURSE ---
PO meds Verbal orders taken by Dr. Donnelly to hold night po meds. Clarified at this time due to seizure medication to be given at this time, verbal orders to continue to hold night medications.
[2020-08-05 21:22] LABS: Arterial Blood Gas Hematocrit 37.1 % (42-52); Base Excess ABG 4.3 mmol/L (-2.0-2.0); Blood Gas Allen Test Pos; Blood Gas Sample Site Radial, right; Blood Gas Sample Type Arterial; Blood Gas Tidal Volume 0.55; HCO3 ABG 27.4 mmol/L (22-26); Oxygen Device VENT
--- NOTE | 2020-08-05 22:46 | PC.NURSE ---
Pt left facility via [facility] ambulance on ventilator with versed drip running at 3mg/hr. Pt to be transported to [facility] CCU bed 46. Report called to Mariia Sandhu RN at [phone]. Alexander Darby called at [phone] to update status and received telephone consent for transfer to [facility]. Clarified code status on phone with Alexander Darby. Pt is a AND.
[2020-08-07 05:18] LABS: Quest SARS-CoV-2 RNA DETECTED (NOT DETECTED)
== END 2020-08-05 22:46 | disposition short-term general hospital (02) | DRG 208 ==
LOC: ER 09:08 → ICU 17:06
PROVIDERS: Family Medicine; Admitting Provider Family Medicine; Emergency Provider Emergency Medicine; Family Provider Family Medicine; PCP Family Medicine; Visit Provider Family Medicine
DX: U07.1 COVID-19 (principal); J96.02 Acute respiratory failure with hypercapnia; G93.40 Encephalopathy, unspecified; N39.0 Urinary tract infection, site not specified; R56.9 Unspecified convulsions; D64.9 Anemia, unspecified; I50.9 Heart failure, unspecified; I25.10 Atherosclerotic heart disease of native coronary artery without angina pectoris; F03.90 Unspecified dementia, unspecified severity, without behavioral disturbance, psychotic disturbance, mood disturbance, and anxiety; L21.9 Seborrheic dermatitis, unspecified; E11.51 Type 2 diabetes mellitus with diabetic peripheral angiopathy without gangrene; K21.9 Gastro-esophageal reflux disease without esophagitis; Z98.2 Presence of cerebrospinal fluid drainage device; E78.5 Hyperlipidemia, unspecified; F20.9 Schizophrenia, unspecified; Z86.73 Personal history of transient ischemic attack (TIA), and cerebral infarction without residual deficits; Z66 Do not resuscitate
CPT/HCPCS: 12345; 31500; 36415; 36600; 51702; 70450; 71045; 80051; 80053; 80164; 80185; 81001; 82330; 82550; 82803; 82805; 83605; 83735; 84439; 84443; 84484; 85025; 87040; 87086; 87205; 87426; 87635; 93005; 94002; 94660; 94799; 96372; 96375; 99284; A4570; C9113; J0133; J0290; J0330; J0696; J1100; J1650; J1953; J2060; J2250; J3370; J3490; J7050

== ENCOUNTER 2020-08-19 15:02 | Inpatient (IN) | payer MEDICARE, MEDICAID, SELFPAY ==
[2020-08-19 15:20] VITALS: BMI 31.0
--- NOTE | 2020-08-19 16:24 | P.HP_ITS ---
Providers/Chief Complaint Admitting Physician: Salazar Tee Primary Care Provider: Lucian Torres MD History of Present Illness 64-year-old male with a past medical history significant for coronary artery disease, hypertension, hyperlipidemia, congestive heart failure, chronic anemia, hydrocephalus with hx of SUB ACUTE CARE NURSE shunt and recently diagnosis of COVID-19 pneumonia for which he had completed 14 day quarantine on 08/04 now transferred from [facility] for hospice/comfort care measures. Patient was initially seen on 08/05 with status epilepticus which prompted transfer. It appears patient continued to have recurrent seizures despite multiple anti-epileptics drug regimen. Due to overall decline it appears patient was transitioned to hospice/comfort care measures only. This was discussed and confirmed with guardian ([phone]). Patient was nonverbal at the time of my eval. Did not follow commands. Review of Systems General: Reports: ROS unobtainable due to medical condition Medications/Allergies Home Medications Medication Instructions Recorded Confirmed Last Taken Type ferrous sulfate 325 mg (65 mg 325 mg PO DAILY 01/13/20 08/04/20 08/04/20 History iron) tablet omeprazole 20 mg capsule,delayed 20 mg PO DAILY 01/13/20 08/04/20 08/04/20 History release phenytoin sodium extended 100 mg 200 mg PO TID cap 01/13/20 08/04/20 08/04/20 History capsule TwoCal HN 90 ea PO TID 01/25/20 08/04/20 08/04/20 History acetaminophen 325 mg PO Q4H PRN 01/25/20 08/04/20 02/14/20 12:21 History bisacodyl 10 mg HI DAILY PRN 01/25/20 08/04/20 Unknown History magnesium hydroxide [Milk of See Rx Instructions .ROUTE 01/25/20 08/04/20 Unknown History Magnesia] .COMPLEX PRN polyethylene glycol 3350 [Miralax] 17 g PO DAILY PRN 01/25/20 08/04/20 Unknown History potassium chloride 20 meq PO DAILY 01/25/20 08/04/20 08/04/20 History sennosides-docusate sodium 1 tab-cap PO BID PRN 01/25/20 08/04/20 Unknown History [Senna-S] aspirin 81 mg PO DAILY #30 tab 01/30/20 08/04/20 08/04/20 Rx atorvastatin 80 mg PO DAILY #0 tab 01/30/20 08/04/20 08/03/20 Rx clopidogrel 75 mg PO DAILY #30 tab 01/30/20 08/04/20 08/04/20 Rx albuterol sulfate [ProAir HFA] 2 puff INHALATION TID PRN 02/15/20 08/04/20 Unknown History ascorbic acid (vitamin C) [Vitamin 1,000 mg PO BID 02/15/20 08/04/20 08/04/20 History C] methenamine hippurate 1 g PO BID 02/15/20 08/04/20 08/04/20 History valproic acid 500 mg PO BID 02/15/20 08/04/20 08/04/20 History ketoconazole 1 applic TOPICAL BID 28 Days #30 gm 02/18/20 08/04/20 08/03/20 Rx furosemide 40 mg tablet 40 mg PO DAILY 05/04/20 08/04/20 08/04/20 History tamsulosin 0.4 mg capsule 0.4 mg PO DAILY 05/04/20 08/04/20 08/03/20 History Allergies Allergy/AdvReac Type Severity Reaction Status Date / Time No Known Allergies Allergy Verified 08/04/20 08:25 PFSH Acute PFSH: Medical History (Updated 08/19/20 @ 16:47 by Salazar Tee MD) Anemia Congestive heart failure Coronary artery disease Dementia Dermatitis, seborrheic involving face, neck, anterior chest Diabetes mellitus Epilepsy GERD (gastroesophageal reflux disease) Hydrocephalus -has known hx of hydrocephalus s/p SUB ACUTE CARE NURSE shunting -CT head shows stable SUB ACUTE CARE NURSE shunt, no acute abnormalities Hyperlipidemia Peripheral vascular disease Schizophrenia TIA (transient ischemic attack) Urinary retention -has prior hx of urinary retention -has been following up with Dr. Huerta -Had previously been noted to have mild to moderate hydronephrosis on the right and mild hydronephrosis on the left on previous CT abdomen/pelvis. Renal ultrasound done on 02/08 shows resolved hydronephrosis. -No noted hydronephrosis on CT abdomen and pelvis done on 02/14 Surgical History SUB ACUTE CARE NURSE (ventriculoperitoneal) shunt status Family History Unknown No problems noted. Social History Smoking and tobacco status: unknown if ever smoked Alcohol intake: never Housing: [facility] Marital status: Single Current occupational status: retired History of recent travel: No Current gender identity: Male Physical Exam Narrative: EXAM NARRATIVE: General : Chronically ill appearing HEENT: Grossly unremakable Chest : Non-labored respiration Abd: Non-distended Ext: No edema Neuro: Does not follow command A&P Assessment and plan (1) Seizure: Status: Acute (2) Schizophrenia: Status: Chronic Qualifiers: Schizophrenia type: unspecified Qualified Code(s): F20.9 - Schizophrenia, unspecified DNR/Comfort care Morphine/Ativan prn Hospice consult No further labs or diagnostic work up consult Ativan PRN for seizure Attestations Medical Necessity Statement*: Patient admitted for comfort care, end of life measures will mariana require over 2 midnight stay in hospital. Time Spent in Patient Care: Greater than 35 minutes Coding Level of Care Code Acute Auto Damage Appraiser for [facility] Diagnoses Seizure R56.9 Schizophrenia F20.9 Schizophrenia type: unspecified
[2020-08-19 18:10] VITALS: BP 124/76; PULSE 90; RESP 18; TEMP 37.3; O2SAT 99
[2020-08-19 20:42] VITALS: PULSE 90; O2SAT 99
[2020-08-20 04:00] VITALS: BP 156/71; PULSE 91; RESP 19; TEMP 37.3; O2SAT 98
[2020-08-20 08:00] VITALS: BP 144/79; PULSE 89; RESP 16; TEMP 37; O2SAT 99
[2020-08-20 11:40] VITALS: BP 134/71; PULSE 95; RESP 16; TEMP 37.6; O2SAT 98
--- NOTE | 2020-08-20 11:41 | P.PN_ITS ---
Subjective Subjective: Interval history: Overall unchanged, Comfortable, slightly more responsive today. Vitals/I&O/Wt Last Vital Signs Temp 99.7 F H 08/20/20 11:40 Pulse 95 08/20/20 11:40 Resp 16 08/20/20 11:40 BP 134/71 08/20/20 11:40 Pulse Ox 98 08/20/20 11:40 08/19/20 08/20/20 08/20/20 22:59 06:59 14:59 Output Total 1400 / 1400 220 / 220 Balance -1400 / -1400 -220 / -220 Weight last 48 hrs Weight 98.021 kg Physical Exam Narrative: EXAM NARRATIVE: General : Chronically ill appearing HEENT: Grossly unremakable Chest : Non-labored respiration Abd: Non-distended Ext: No edema Neuro: Does not follow command Urinary Catheter Management^: Ness: Cath Placed During This Visit: yes Reason for Continuing Indwelling Catheter: Chronic Indwelling Urinary Catheter on Admission Urinary Catheter Date of Insertion: 08/19/20 A&P Assessment and plan (1) Seizure: Status: Acute (2) Schizophrenia: Status: Chronic Qualifiers: Schizophrenia type: unspecified Qualified Code(s): F20.9 - Schizophrenia, unspecified DNR/Comfort care Morphine/Ativan prn Hospice consult No further labs or diagnostic work up consult Ativan PRN for seizure Discharge orders placed to [facility] on comfort care if able to accept today Attestations Medical Necessity Statement*: Will require further hospitalization for comfort care measures and pending placement. Time Spent in Patient Care: Greater than 35 minutes Coding Level of Care Code Acute Inter Com Installer for [facility] Diagnoses Seizure R56.9 Schizophrenia F20.9 Schizophrenia type: unspecified
--- NOTE | 2020-08-20 13:39 | PC.CHAP ---
Pastoral Care Encounter/Spiritual Assessment Type of Contact [] Declined shank sorter visit [] Patient/Family/Request visit [] Outpatient visit [] Follow-up visit [] Physician referral [] Code/Alert [x] Routine visit [] Staff referral [] Actively dying [] Patient sleeping [] Family support [] [] Out of room [] Palliative care [] [] Receiving care in room [] Pre-surgical visit [] Trauma [] Long length of stay [] ICU visit [] Other: Relational/Emotional Strength [] Patient feels connected with others/family/visitors/staff [] Distress [] Loneliness/isolation [] Abandonment Spirituality of Patient [] Person of Unique [] Attends Cheondoism of their Unique [] Believes in Prayer [] Reads Bible or Sikhism materials [] There are Spiritual issues to be addressed Fuel Cell Systems Engineer Interventions [] Prayer [] Active listening [] Non-anxious presence [] Spiritual/emotional support [] Crisis/trauma care [] Spiritual counseling [] Bereavement support [] Provided bereavement packet [] Provided Bible/devotional materials [] Provided toy/stuffed animal, coloring book to patient or family member [] Provided Communion [] Anointing/[place] [] Salvation [] Completed spiritual assessment [] Other: Impact on Illness or Injury [] Angry [] Fearful [] Anxious [] Often cries [] Exhaustion [] Unable to work [] Unable to attend zoroastrian [] Unable to walk/stand [] Unable to read [] Unable to drive [] Unable to eat/drink [] Unable to sleep [] Unable to be with family [] Patient intubated [] Other: Summary Time spent with patient
[2020-08-20 15:13] VITALS: BP 127/79; PULSE 94; RESP 16; TEMP 37.1; O2SAT 98
[2020-08-20 15:21] VITALS: BP 127/79; PULSE 94; RESP 16; TEMP 37.1; O2SAT 98
--- NOTE | 2020-08-20 18:25 | PM.DCS ---
Discharge Providers Date of Admission: 08/19/20 15:02 Date of Discharge: August 20, 2020 Attending Provider at Admission: Salazar Tee Attending Provider at Discharge: Salazar Tee Primary Care Provider: Lucian Torres MD Diagnoses at Discharge Discharge Diagnosis (1) Seizure: Status: Acute (2) Schizophrenia: Status: Chronic Qualifiers: Schizophrenia type: unspecified Qualified Code(s): F20.9 - Schizophrenia, unspecified (3) End of life care: Status: Acute Reason for Visit Reason for Visit: Brief History: End of life care Hospital Course Hospital Course 64-year-old male with a past medical history significant for coronary artery disease, hypertension, hyperlipidemia, congestive heart failure, chronic anemia, hydrocephalus 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 for hospice/comfort care measures. Patient was initially seen on 08/05 with status epilepticus which prompted transfer. It appears patient continued to have recurrent seizures despite multiple anti-epileptics drug regimen. Due to overall decline it appears patient was transitioned to hospice/comfort care measures only. This was discussed and confirmed with guardian ([phone]). Patient was nonverbal at the time of my eval. Did not follow commands. Upon admission to the hospital patient was started on comfort meds. On nonessential medications were held in addition to antiepileptics which patient could not take orally. Morphine and Ativan prescriptions were prescribed and patient was discharged [facility] comfort care measures only. Physical Exam Narrative: EXAM NARRATIVE: Refer to day of discharge progress note. Urinary Catheter Management^: Ness: Cath Placed During This Visit: yes Reason for Continuing Indwelling Catheter: Chronic Indwelling Urinary Catheter on Admission Urinary Catheter Date of Insertion: 08/19/20 Discharge Data Vitals: Last Vital Signs Temp 98.8 F 08/20/20 15:21 Pulse 94 08/20/20 15:21 Resp 16 08/20/20 15:21 BP 127/79 08/20/20 15:21 Pulse Ox 98 08/20/20 15:21 Discharge Plan Discharge Patient Disposition: Xfer SNF Condition: Stable Prescriptions: New morphine 20 mg/5 mL (4 mg/mL) solution 5 mg PO Q6H Qty: 30 RF: 0 lorazepam 2 mg/mL concentrate 0.5 mg PO Q8H PRN (Reason: agitation) Qty: 30 RF: 0 Continued albuterol sulfate [ProAir HFA] 90 mcg/actuation Hfa Aerosol Inhaler 2 puff INHALATION TID PRN (Reason: Shortness Of Breath) RF: 0 Discontinued furosemide [Lasix] 40 mg tablet 40 mg PO DAILY RF: 0 tamsulosin 0.4 mg capsule 0.4 mg PO DAILY RF: 0 ferrous sulfate 325 mg (65 mg iron) tablet 325 mg PO DAILY RF: 0 omeprazole 20 mg capsule,delayed release(DR/EC) 20 mg PO DAILY RF: 0 phenytoin sodium extended [Dilantin Extended] 100 mg capsule 200 mg PO TID RF: 0 acetaminophen 325 mg Tablet 325 mg PO Q4H PRN (Reason: Pain) RF: 0 sennosides-docusate sodium [Senna-S] 8.6-50 mg Tablet 1 tab-cap PO BID PRN (Reason: Constipation) RF: 0 magnesium hydroxide [Milk of Magnesia] 400 mg/5 mL Suspension See Rx Instructions .ROUTE .COMPLEX PRN (Reason: Constipation) RF: 0 bisacodyl 10 mg Suppository 10 mg SD DAILY PRN (Reason: Constipation) RF: 0 polyethylene glycol 3350 [Miralax] 17 gram/dose Powder 17 g PO DAILY PRN (Reason: Constipation) RF: 0 TwoCal HN 0.08-2 gram-kcal/mL Liquid 90 ea PO TID RF: 0 potassium chloride 20 mEq Tablet Extended Release 20 meq PO DAILY RF: 0 clopidogrel 75 mg Tablet 75 mg PO DAILY Qty: 30 RF: 0 aspirin 81 mg tablet,chewable 81 mg PO DAILY Qty: 30 RF: 0 atorvastatin 40 mg tablet 80 mg PO DAILY Qty: 0 RF: 0 ascorbic acid (vitamin C) [Vitamin C] 1,000 mg Tablet 1,000 mg PO BID RF: 0 valproic acid 250 mg Capsule 500 mg PO BID RF: 0 methenamine hippurate 1 gram Tablet 1 g PO BID RF: 0 ketoconazole 2 % cream 1 applic TOPICAL BID 28 Days Qty: 30 RF: 1 Discharge Orders: Discharge Order (Routine); Ordered 08/20/20 Ordered By: Salazar Tee Referrals: [facility] [Outside] Lucian Torres MD [Primary Care Provider] - 08/31/20 11:00 am Discharge Diet: Advance as tolerated Discharge Activity: Resume usual activity Patient Instructions: Seizures Discharge Attestations Time Spent in Discharge Care*: greater than 30 min Status at Discharge: Cognitive status at discharge: other (obtunded), Quality Metrics Clinical Quality Measures During this hospital stay, did patient experience: None Coding Level of Care Code Acute Etl Lead for [facility] Diagnoses Seizure R56.9 Schizophrenia F20.9 Schizophrenia type: unspecified End of life care Z51.5
== END 2020-08-20 15:22 | disposition skilled nursing facility (03) | DRG 951 ==
PROVIDERS: Admitting Provider Hospitalist; PCP Family Medicine; Visit Provider Hospitalist
DX: Z51.5 Encounter for palliative care (principal); I25.10 Atherosclerotic heart disease of native coronary artery without angina pectoris; I11.0 Hypertensive heart disease with heart failure; I50.9 Heart failure, unspecified; E78.5 Hyperlipidemia, unspecified; D64.9 Anemia, unspecified; Z98.2 Presence of cerebrospinal fluid drainage device; F03.90 Unspecified dementia, unspecified severity, without behavioral disturbance, psychotic disturbance, mood disturbance, and anxiety; E11.51 Type 2 diabetes mellitus with diabetic peripheral angiopathy without gangrene; G40.901 Epilepsy, unspecified, not intractable, with status epilepticus; K21.9 Gastro-esophageal reflux disease without esophagitis; F20.9 Schizophrenia, unspecified; Z86.73 Personal history of transient ischemic attack (TIA), and cerebral infarction without residual deficits; R33.9 Retention of urine, unspecified; Z66 Do not resuscitate; Z96.0 Presence of urogenital implants; Z86.19 Personal history of other infectious and parasitic diseases
CPT/HCPCS: 12345; 51702; 92610